=== PATIENT | female | born 1935 | race Caucasian/White ===

== ENCOUNTER 2018-01-08 15:30 | Outpatient (RCR) | payer MEDICARE, SELFPAY ==
[2017-12-15 09:39] VITALS: BP 158/75; PULSE 80; RESP 16; TEMP 35.3; BMI 27.3
--- NOTE | 2017-12-15 10:48 | PCM.WC.HP ---
(1) Pressure ulcer of right buttock, stage 2 Status: Chronic Current Visit: Yes Code(s): L89.312 - Pressure ulcer of right buttock, stage 2 (2) Debility Status: Chronic Current Visit: Yes Code(s): R53.81 - Other malaise (3) Dementia Status: Chronic Current Visit: Yes Code(s): F03.90 - Unspecified dementia without behavioral disturbance (4) Immobility Status: Chronic Current Visit: Yes Code(s): Z74.09 - Other reduced mobility (5) Diabetes Status: Chronic Current Visit: Yes Qualifiers: Diabetes mellitus type: type 2 Code(s): E11.9 - Type 2 diabetes mellitus without complications (6) Hypertension Status: Chronic Current Visit: No Code(s): I10 - Essential (primary) hypertension (7) Hyperlipidemia Status: Chronic Current Visit: No Code(s): E78.5 - Hyperlipidemia, unspecified (8) Hypothyroidism Status: Chronic Current Visit: No Code(s): E03.9 - Hypothyroidism, unspecified (9) Incontinence of urine Status: Chronic Current Visit: No Code(s): R32 - Unspecified urinary incontinence (10) Lumbar and sacral arthritis Status: Chronic Current Visit: No Code(s): M48.9 - Spondylopathy, unspecified (11) Overweight (BMI 25.0-29.9) Status: Chronic Current Visit: No Code(s): E66.3 - Overweight History of Present Illness Date of Service: 12/15/17 Chief Complaint: Stage II pressure ulceration of the right upper buttock History of Wound: This is an 82-year-old female who is debilitated, and suffers from dementia. She lives with her son and wtnjqciw-[id number]. Her nlbnjgoc-pt-ezt is a nurse. Patient presents with a stage II pressure ulceration of the right upper buttock, which is said to have been present for approximately 1 month. Additionally, there is a fullness in the left upper buttock, with overlying skin changes, though no breach in skin integrity. There are also signs of pressure phenomenon on each of the lower buttocks. The patient sleeps on a regular mattress. She has a gel cushion for her wheelchair. She is largely immobile, though walks short distances with the aid of a walker. The patient's appetite is said to be good. The patient has recently completed courses of Keflex and Cefdinir orally. Past Medical History Past Medical History: Chronic Problems Pressure ulcer of right buttock, stage 2 (Chronic) Debility (Chronic) Dementia (Chronic) Immobility (Chronic) Diabetes (Chronic) Hypertension (Chronic) Hyperlipidemia (Chronic) Hypothyroidism (Chronic) Incontinence of urine (Chronic) Lumbar and sacral arthritis (Chronic) Overweight (BMI 25.0-29.9) (Chronic) Past Medical History: The patient's history is negative for myocardial infarction, congestive heart failure, cerebrovascular accident, renal disease, pulmonary disease, and cancer. She suffers from dementia, diabetes mellitus, hypertension, hyperlipidemia, hypothyroidism, lumbar fractures, and urinary incontinence. Surgical History: - - Patient has a history of cholecystectomy in the past. She is a Ab0. Allergies/Adverse Reactions: Allergies No Known Allergies Allergy (Verified 12/15/17 10:02) Home Medications: Ambulatory Orders Medication Instructions Recorded Acetaminophen [Tylenol Extra 1,000 mg PO BID 12/15/17 Strength] Benazepril HCl [Lotensin] 20 mg PO DAILY 12/15/17 Calcium Carbonate/Vitamin D3 2 each PO DAILY 12/15/17 [Calcium 600 with Vit D Chew Tb] Cholecalciferol (Vitamin D3) 1,000 unit PO 12/15/17 [Vitamin D3] Donepezil HCl [Aricept] 10 mg PO DAILY 12/15/17 Fluticasone 0.05% [Flonase Nasal 2 spray NASAL DAILY 12/15/17 [place]] Gabapentin [Neurontin] 600 mg PO TIDCM 12/15/17 Insulin Glargine [Lantus (BKC)] 15 units SC DAILY 12/15/17 Insulin Lispro [Humalog KwikPen] See Protocol SQ 12/15/17 Levothyroxine [Synthroid] 100 mcg PO DAILY 12/15/17 Lovastatin [Mevacor] 40 mg PO DAILY 12/15/17 Melatonin 5 mg PO DAILY 12/15/17 Metformin HCl 500 mg PO BID 12/15/17 Sennosides/Docusate Sodium [Senna 1 each PO BID 12/15/17 Plus Tablet] - Family History Paternal - - Patient's father at a young age from a myocardial infarction. The patient's mother in her 70s from a cerebrovascular accident. Social History: Patient denies use of alcohol and tobacco products. She is . She lives with her son and nowjnffz-uc-sjv, who are her caregivers. Lives: With Family Smoking Status: Never smoker Tobacco Use: Non-smoker Alcohol: None Drugs: None Review of Systems Constitutional: Denies: Chills, Fever, Weight Change Eyes: Denies: Pain, Vision Change HEENT: Denies: Difficulty Hearing, Difficulty Swallowing, Sinus Congestion Cardiovascular: Denies: Chest Pain, Palpitations Respiratory: Denies: Cough, Shortness of Breath Gastrointestinal: Denies: Diarrhea, Nausea, Vomiting Genitourinary: Denies: Dysuria, Hematuria Endocrine: Denies: Heat/ Cold Intolerance, Polydipsia, Polyuria Hematologic/ Lymphatic: Denies: Easy Bruising, Easy Bleeding - Physical Exam Vital Signs Temp Pulse Resp BP 95.5 F L 80 16 158/75 H 12/15/17 09:39 12/15/17 09:39 12/15/17 09:39 12/15/17 09:39 General: Alert, Oriented x3, Cooperative, No apparent distress, Well developed, Well nourished, - - The patient is relatively immobile HEENT: Atraumatic, PERRLA, EOMI, Normocephalic Oral: Moist Mucosa Neck: Supple, No JVD, Negative Carotid Bruits, Negative Hepatojugular Reflux, No Nodes, No Nuchal Rigidity, Trachea Midline Lungs: Clear to auscultation, Normal air movement, No rhonchi, No wheeze, No rales Cardiovascular: Regular rate, Regular Rhythm, Normal S1, Normal S2, No murmurs Abdomen: Soft, Non Tender, Non-Distended Extremities: No clubbing, No cyanosis, No edema Skin: - - A superficial stage II pressure ulceration is noted on the right upper buttock. Dimensions are documented elsewhere. There is no sign of infection or cellulitis. There is a moderate amount of bioburden and evidence of some nonviable tissue. There is a fullness on the left upper buttock, though the skin remains intact, with some mild erythematous discoloration that does not suggest cellulitis. There are some early skin changes on the lower buttocks that are suggestive of pressure phenomenon, though no hanane breech of skin integrity. Wound Measurements and Assessment WC - Nurse 1 - General Ulcer Measurement Start: 12/15/17 09:39 Freq: Status: Active Protocol: Activity Type Activity Date Activity User E-Sign Co-Sign Detail Recorded Client Recorded Date Recorded By Document 12/15/17 09:39 [facility] [id number] 12/15/17 09:55 [facility] 12/15/17 09:39 Wound Center Nurse 1 [Ulcer Assessment] #2- RT UPPER BUTTOCK -Combined with other wound No -Current Size (cm) - Length 2 -Current Size (cm) - Width 2.5 -Total Square Cm 5.0 -Date of Last Picture (Recall this 12/15/17 field) -Photo Taken Yes -Epithelialization None Present -Tunneling No -Undermining/Tunneling No -Circular Undermining No -Granulation Amt None Present (0 %) -Slough/Fibrin Yes -Necrosis Amt Large (67-100%) -Necrotic Tissue Type Adherent Slough -Structure Exposed N/A -Texture ([place]-wound Skin Appearance) Scarring -Moisture ([place]-wound Skin Appearance Dry/Scaly ) -Color ([place]-wound Skin Appearance) Erythema -Temperature ([place]-wound Skin No Abnormality Appearance) (Pt Warm) -Tenderness on Palpation ([place]-wound No Skin Appearance) -Ulcer Cleansing Wound Cleanser -Foul Odor after Cleansing No -Anesthetic Used 4% Lidocaine Solution #1- LT UPPER BUTTOCK -Combined with other wound No -Current Size (cm) - Length 2.5 -Current Size (cm) - Width 3.5 -Current Size (cm) - Depth 0.1 -Total Square Cm 8.75 -Date of Last Picture (Recall this 12/15/17 field) -Photo Taken Yes -Epithelialization None Present -Tunneling No -Undermining/Tunneling No -Circular Undermining No -Exudate Amt None Present (0 %) -Wound Margin Distinct, Outline Attached -Structure Exposed N/A -Color ([place]-wound Skin Appearance) Ecchymosis Erythema -Temperature ([place]-wound Skin No Abnormality Appearance) (Pt Warm) -Tenderness on Palpation ([place]-wound Yes Skin Appearance) -Ulcer Cleansing Wound Cleanser -Foul Odor after Cleansing No -Anesthetic Used 4% Lidocaine Solution WC - Nurse 2 - General Ulcer CM Notes Start: 12/15/17 09:39 Freq: Status: Active Protocol: Activity Type Activity Date Activity User E-Sign Co-Sign Detail Recorded Client Recorded Date Recorded By Document 12/15/17 10:35 [id number] 12/15/17 10:45 12/15/17 10:35 Wound Center Nurse 2 [Procedure/Treatment] #2- RT UPPER BUTTOCK -Time 10:36 -Correct Patient Yes -Correct Side, Site, Position Yes -Correct Procedure Yes -Procedure Performed Yes -Type of Procedure Debridement -Clinical Debridement Subcutaneous -Post Debridement Size (cm) - Length 2.0 -Post Debridement Size (cm) - Width 1.7 -Post Debridement Size (cm) - Depth 0.1 -Total Square Cm 3.40 -Wound/Ulcer Outcome Not Healed -Ulcer Cleansing Rinsed/ Irrigated with Saline -Foul Odor after Cleansing No -Bioengineered Tissue No -Topical Lidocaine (%) 4 -Lidocaine (ml) 10 -Bleeding Controlled with NA -Treatment Response Procedure Tolerated Well #1- LT UPPER BUTTOCK -Time 10:37 -Correct Patient Yes -Correct Side, Site, Position Yes -Correct Procedure Yes -Procedure Performed No -Wound/Ulcer Outcome Not Healed -Ulcer Cleansing Rinsed/ Irrigated with Saline -Foul Odor after Cleansing No -Bioengineered Tissue No -Bleeding Controlled with NA [See Physician Procedure note for Specifics] Musculoskeletal: Muscle Wasting Neurological: Cranial nerves II-XII grossly intact, Neuro grossly intact Psych/Mental Status: Normal Affect, Appropriate, Alert and oriented to time, place, person, mood and affect Debridement Note Post-Debridement Measurements/Treatment WC - Nurse 2 - General Ulcer CM Notes Start: 12/15/17 09:39 Freq: Status: Active Protocol: Activity Type Activity Date Activity User E-Sign Co-Sign Detail Recorded Client Recorded Date Recorded By Document 12/15/17 10:35 [id number] 12/15/17 10:45 12/15/17 10:35 Wound Center Nurse 2 #2- RT UPPER BUTTOCK -Time 10:36 -Correct Patient Yes -Correct Side, Site, Position Yes -Correct Procedure Yes -Procedure Performed Yes -Type of Procedure Debridement -Clinical Debridement Subcutaneous -Post Debridement Size (cm) - Length 2.0 -Post Debridement Size (cm) - Width 1.7 -Post Debridement Size (cm) - Depth 0.1 -Total Square Cm 3.40 -Wound/Ulcer Outcome Not Healed -Ulcer Cleansing Rinsed/ Irrigated with Saline -Foul Odor after Cleansing No -Bioengineered Tissue No -Topical Lidocaine (%) 4 -Lidocaine (ml) 10 -Bleeding Controlled with NA -Treatment Response Procedure Tolerated Well #1- LT UPPER BUTTOCK -Time 10:37 -Correct Patient Yes -Correct Side, Site, Position Yes -Correct Procedure Yes -Procedure Performed No -Wound/Ulcer Outcome Not Healed -Ulcer Cleansing Rinsed/ Irrigated with Saline -Foul Odor after Cleansing No -Bioengineered Tissue No -Bleeding Controlled with NA Laterality: Right - Upper buttock Type of Debridement: Excisional debridement Anesthesia Used: 4% Lidocaine Solution Depth: Down to and including healthy tissue, in the subcutaneous layer Percentage of wound debrided: 100 Instrument Used: 5mm curette Severity: Fat Layer Exposed Amount of bleeding with debridement: Mild Bleeding Controlled with: Compression and gauze Patient tolerated procedure well Assessment/Plan Active Problems Pressure ulcer of right buttock, stage 2 (Chronic) Debility (Chronic) Dementia (Chronic) Immobility (Chronic) Diabetes (Chronic) Assessment: This is an 82-year-old female who presents with evidence of pressure phenomenon in the buttocks. There is a stage II pressure ulceration on the right upper buttock. There is evidence of fullness in the left upper buttock, though no breach of skin integrity. There are also some early skin changes in the lower buttocks, also suggesting pressure phenomenon. Plan: Offloading measures are to be implemented. These have been discussed with the patient and with her [id number]-sty, who is at the bedside. The whbyvcib-fz-zqm is a nurse, and appears to understand the recommendations. We are to request a low air loss overlay to the patient's mattress. Patient is to continue using her gel cushion on her wheelchair. Frequent repositioning has been recommended. We are to use collagenase Santyl topically on the open ulceration on the right upper buttock. This will be applied daily. We are to use OptiFoam or equivalent on both areas on the upper buttocks to minimize pressure and shear forces. We are to obtain routine laboratory studies, including a CBC, conference of metabolic profile, hemoglobin A1c, and serum prealbumin. His laboratory results will give information regarding nutritional status, diabetes control, etc. Good nutrition has been recommended, with the use of nutritional supplements such as Glucerna. Optimization of the patient's glycemic status has been also recommended. The patient is not a smoker. Influenza vaccine was not administered today. Patient stands 5 feet 9 inches tall. She weighs 185 pounds. Her BMI is 27.3, which places her in an overweight category. Weight loss has been recommended, and collaboration with her primary care physician in this regard has been advised, though adequate nutritional intake has also been recommended.
--- NOTE | 2017-12-15 10:59 | HP.PCM_ITS ---
(1) Pressure ulcer of right buttock, stage 2 Status: Chronic Current Visit: Yes Code(s): L89.312 - Pressure ulcer of right buttock, stage 2 (2) Debility Status: Chronic Current Visit: Yes Code(s): R53.81 - Other malaise (3) Dementia Status: Chronic Current Visit: Yes Code(s): F03.90 - Unspecified dementia without behavioral disturbance (4) Immobility Status: Chronic Current Visit: Yes Code(s): Z74.09 - Other reduced mobility (5) Diabetes Status: Chronic Current Visit: Yes Qualifiers: Diabetes mellitus type: type 2 Code(s): E11.9 - Type 2 diabetes mellitus without complications (6) Hypertension Status: Chronic Current Visit: No Code(s): I10 - Essential (primary) hypertension (7) Hyperlipidemia Status: Chronic Current Visit: No Code(s): E78.5 - Hyperlipidemia, unspecified (8) Hypothyroidism Status: Chronic Current Visit: No Code(s): E03.9 - Hypothyroidism, unspecified (9) Incontinence of urine Status: Chronic Current Visit: No Code(s): R32 - Unspecified urinary incontinence (10) Lumbar and sacral arthritis Status: Chronic Current Visit: No Code(s): M48.9 - Spondylopathy, unspecified (11) Overweight (BMI 25.0-29.9) Status: Chronic Current Visit: No Code(s): E66.3 - Overweight History of Present Illness Date of Service: 12/15/17 Chief Complaint: Stage II pressure ulceration of the right upper buttock History of Wound: This is an 82-year-old female who is debilitated, and suffers from dementia. She lives with her son and [id number]. Her daughter-in- law is a nurse. Patient presents with a stage II pressure ulceration of the right upper buttock, which is said to have been present for approximately 1 month. Additionally, there is a fullness in the left upper buttock, with overlying skin changes, though no breach in skin integrity. There are also signs of pressure phenomenon on each of the lower buttocks. The patient sleeps on a regular mattress. She has a gel cushion for her wheelchair. She is largely immobile, though walks short distances with the aid of a walker. The patient's appetite is said to be good. The patient has recently completed courses of Keflex and Cefdinir orally. Past Medical History Past Medical History: Chronic Problems Pressure ulcer of right buttock, stage 2 (Chronic) Debility (Chronic) Dementia (Chronic) Immobility (Chronic) Diabetes (Chronic) Hypertension (Chronic) Hyperlipidemia (Chronic) Hypothyroidism (Chronic) Incontinence of urine (Chronic) Lumbar and sacral arthritis (Chronic) Overweight (BMI 25.0-29.9) (Chronic) Past Medical History: The patient's history is negative for myocardial infarction, congestive heart failure, cerebrovascular accident, renal disease, pulmonary disease, and cancer. She suffers from dementia, diabetes mellitus, hypertension, hyperlipidemia, hypothyroidism, lumbar fractures, and urinary incontinence. Surgical History: - - Patient has a history of cholecystectomy in the past. She is a Ab0. Allergies/Adverse Reactions: Allergies No Known Allergies Allergy (Verified 12/15/17 10:02) Home Medications: Ambulatory Orders Medication Instructions Recorded Acetaminophen [Tylenol Extra 1,000 mg PO BID 12/15/17 Strength] Benazepril HCl [Lotensin] 20 mg PO DAILY 12/15/17 Calcium Carbonate/Vitamin D3 2 each PO DAILY 12/15/17 [Calcium 600 with Vit D Chew Tb] Cholecalciferol (Vitamin D3) 1,000 unit PO 12/15/17 [Vitamin D3] Donepezil HCl [Aricept] 10 mg PO DAILY 12/15/17 Fluticasone 0.05% [Flonase Nasal 2 spray NASAL DAILY 12/15/17 [place]] Gabapentin [Neurontin] 600 mg PO TIDCM 12/15/17 Insulin Glargine [Lantus (BKC)] 15 units SC DAILY 12/15/17 Insulin Lispro [Humalog KwikPen] See Protocol SQ 12/15/17 Levothyroxine [Synthroid] 100 mcg PO DAILY 12/15/17 Lovastatin [Mevacor] 40 mg PO DAILY 12/15/17 Melatonin 5 mg PO DAILY 12/15/17 Metformin HCl 500 mg PO BID 12/15/17 Sennosides/Docusate Sodium [Senna 1 each PO BID 12/15/17 Plus Tablet] - Family History Paternal - - Patient's father at a young age from a myocardial infarction. The patient's mother in her 70s from a cerebrovascular accident. Social History: Patient denies use of alcohol and tobacco products. She is . She lives with her son and [id number], who are her caregivers. Lives: With Family Smoking Status: Never smoker Tobacco Use: Non-smoker Alcohol: None Drugs: None Review of Systems Constitutional: Denies: Chills, Fever, Weight Change Eyes: Denies: Pain, Vision Change HEENT: Denies: Difficulty Hearing, Difficulty Swallowing, Sinus Congestion Cardiovascular: Denies: Chest Pain, Palpitations Respiratory: Denies: Cough, Shortness of Breath Gastrointestinal: Denies: Diarrhea, Nausea, Vomiting Genitourinary: Denies: Dysuria, Hematuria Endocrine: Denies: Heat/ Cold Intolerance, Polydipsia, Polyuria Hematologic/ Lymphatic: Denies: Easy Bruising, Easy Bleeding - Physical Exam Vital Signs Temp Pulse Resp BP 95.5 F L 80 16 158/75 H 12/15/17 09:39 12/15/17 09:39 12/15/17 09:39 12/15/17 09:39 General: Alert, Oriented x3, Cooperative, No apparent distress, Well developed, Well nourished, - - The patient is relatively immobile HEENT: Atraumatic, PERRLA, EOMI, Normocephalic Oral: Moist Mucosa Neck: Supple, No JVD, Negative Carotid Bruits, Negative Hepatojugular Reflux, No Nodes, No Nuchal Rigidity, Trachea Midline Lungs: Clear to auscultation, Normal air movement, No rhonchi, No wheeze, No rales Cardiovascular: Regular rate, Regular Rhythm, Normal S1, Normal S2, No murmurs Abdomen: Soft, Non Tender, Non-Distended Extremities: No clubbing, No cyanosis, No edema Skin: - - A superficial stage II pressure ulceration is noted on the right upper buttock. Dimensions are documented elsewhere. There is no sign of infection or cellulitis. There is a moderate amount of bioburden and evidence of some nonviable tissue. There is a fullness on the left upper buttock, though the skin remains intact, with some mild erythematous discoloration that does not suggest cellulitis. There are some early skin changes on the lower buttocks that are suggestive of pressure phenomenon, though no hanane breech of skin integrity. Wound Measurements and Assessment WC - Nurse 1 - General Ulcer Measurement Start: 12/15/17 09:39 Freq: Status: Active Protocol: Activity Type Activity Date Activity User E-Sign Co-Sign Detail Recorded Client Recorded Date Recorded By Document 12/15/17 09:39 [facility] [id number] 12/15/17 09:55 [facility] 12/15/17 09:39 Wound Center Nurse 1 [Ulcer Assessment] #2- RT UPPER BUTTOCK -Combined with other wound No -Current Size (cm) - Length 2 -Current Size (cm) - Width 2.5 -Total Square Cm 5.0 -Date of Last Picture (Recall this 12/15/17 field) -Photo Taken Yes -Epithelialization None Present -Tunneling No -Undermining/Tunneling No -Circular Undermining No -Granulation Amt None Present (0 %) -Slough/Fibrin Yes -Necrosis Amt Large (67-100%) -Necrotic Tissue Type Adherent Slough -Structure Exposed N/A -Texture ([place]-wound Skin Appearance) Scarring -Moisture ([place]-wound Skin Appearance Dry/Scaly ) -Color ([place]-wound Skin Appearance) Erythema -Temperature ([place]-wound Skin No Abnormality Appearance) (Pt Warm) -Tenderness on Palpation ([place]-wound No Skin Appearance) -Ulcer Cleansing Wound Cleanser -Foul Odor after Cleansing No -Anesthetic Used 4% Lidocaine Solution #1- LT UPPER BUTTOCK -Combined with other wound No -Current Size (cm) - Length 2.5 -Current Size (cm) - Width 3.5 -Current Size (cm) - Depth 0.1 -Total Square Cm 8.75 -Date of Last Picture (Recall this 12/15/17 field) -Photo Taken Yes -Epithelialization None Present -Tunneling No -Undermining/Tunneling No -Circular Undermining No -Exudate Amt None Present (0 %) -Wound Margin Distinct, Outline Attached -Structure Exposed N/A -Color ([place]-wound Skin Appearance) Ecchymosis Erythema -Temperature ([place]-wound Skin No Abnormality Appearance) (Pt Warm) -Tenderness on Palpation ([place]-wound Yes Skin Appearance) -Ulcer Cleansing Wound Cleanser -Foul Odor after Cleansing No -Anesthetic Used 4% Lidocaine Solution WC - Nurse 2 - General Ulcer CM Notes Start: 12/15/17 09:39 Freq: Status: Active Protocol: Activity Type Activity Date Activity User E-Sign Co-Sign Detail Recorded Client Recorded Date Recorded By Document 12/15/17 10:35 [id number] 12/15/17 10:45 12/15/17 10:35 Wound Center Nurse 2 [Procedure/Treatment] #2- RT UPPER BUTTOCK -Time 10:36 -Correct Patient Yes -Correct Side, Site, Position Yes -Correct Procedure Yes -Procedure Performed Yes -Type of Procedure Debridement -Clinical Debridement Subcutaneous -Post Debridement Size (cm) - Length 2.0 -Post Debridement Size (cm) - Width 1.7 -Post Debridement Size (cm) - Depth 0.1 -Total Square Cm 3.40 -Wound/Ulcer Outcome Not Healed -Ulcer Cleansing Rinsed/ Irrigated with Saline -Foul Odor after Cleansing No -Bioengineered Tissue No -Topical Lidocaine (%) 4 -Lidocaine (ml) 10 -Bleeding Controlled with NA -Treatment Response Procedure Tolerated Well #1- LT UPPER BUTTOCK -Time 10:37 -Correct Patient Yes -Correct Side, Site, Position Yes -Correct Procedure Yes -Procedure Performed No -Wound/Ulcer Outcome Not Healed -Ulcer Cleansing Rinsed/ Irrigated with Saline -Foul Odor after Cleansing No -Bioengineered Tissue No -Bleeding Controlled with NA [See Physician Procedure note for Specifics] Musculoskeletal: Muscle Wasting Neurological: Cranial nerves II-XII grossly intact, Neuro grossly intact Psych/Mental Status: Normal Affect, Appropriate, Alert and oriented to time, place, person, mood and affect Debridement Note Post-Debridement Measurements/Treatment WC - Nurse 2 - General Ulcer CM Notes Start: 12/15/17 09:39 Freq: Status: Active Protocol: Activity Type Activity Date Activity User E-Sign Co-Sign Detail Recorded Client Recorded Date Recorded By Document 12/15/17 10:35 [id number] 12/15/17 10:45 12/15/17 10:35 Wound Center Nurse 2 #2- RT UPPER BUTTOCK -Time 10:36 -Correct Patient Yes -Correct Side, Site, Position Yes -Correct Procedure Yes -Procedure Performed Yes -Type of Procedure Debridement -Clinical Debridement Subcutaneous -Post Debridement Size (cm) - Length 2.0 -Post Debridement Size (cm) - Width 1.7 -Post Debridement Size (cm) - Depth 0.1 -Total Square Cm 3.40 -Wound/Ulcer Outcome Not Healed -Ulcer Cleansing Rinsed/ Irrigated with Saline -Foul Odor after Cleansing No -Bioengineered Tissue No -Topical Lidocaine (%) 4 -Lidocaine (ml) 10 -Bleeding Controlled with NA -Treatment Response Procedure Tolerated Well #1- LT UPPER BUTTOCK -Time 10:37 -Correct Patient Yes -Correct Side, Site, Position Yes -Correct Procedure Yes -Procedure Performed No -Wound/Ulcer Outcome Not Healed -Ulcer Cleansing Rinsed/ Irrigated with Saline -Foul Odor after Cleansing No -Bioengineered Tissue No -Bleeding Controlled with NA Laterality: Right - Upper buttock Type of Debridement: Excisional debridement Anesthesia Used: 4% Lidocaine Solution Depth: Down to and including healthy tissue, in the subcutaneous layer Percentage of wound debrided: 100 Instrument Used: 5mm curette Severity: Fat Layer Exposed Amount of bleeding with debridement: Mild Bleeding Controlled with: Compression and gauze Patient tolerated procedure well Assessment/Plan Active Problems Pressure ulcer of right buttock, stage 2 (Chronic) Debility (Chronic) Dementia (Chronic) Immobility (Chronic) Diabetes (Chronic) Assessment: This is an 82-year-old female who presents with evidence of pressure phenomenon in the buttocks. There is a stage II pressure ulceration on the right upper buttock. There is evidence of fullness in the left upper buttock, though no breach of skin integrity. There are also some early skin changes in the lower buttocks, also suggesting pressure phenomenon. Plan: Offloading measures are to be implemented. These have been discussed with the patient and with her [id number], who is at the bedside. The [id number] is a nurse, and appears to understand the recommendations. We are to request a low air loss overlay to the patient's mattress. Patient is to continue using her gel cushion on her wheelchair. Frequent repositioning has been recommended. We are to use collagenase Santyl topically on the open ulceration on the right upper buttock. This will be applied daily. We are to use OptiFoam or equivalent on both areas on the upper buttocks to minimize pressure and shear forces. We are to obtain routine laboratory studies, including a CBC, conference of metabolic profile, hemoglobin A1c, and serum prealbumin. His laboratory results will give information regarding nutritional status, diabetes control, etc. Good nutrition has been recommended, with the use of nutritional supplements such as Glucerna. Optimization of the patient's glycemic status has been also recommended. The patient is not a smoker. Influenza vaccine was not administered today. Patient stands 5 feet 9 inches tall. She weighs 185 pounds. Her BMI is 27.3, which places her in an overweight category. Weight loss has been recommended, and collaboration with her primary care physician in this regard has been advised, though adequate nutritional intake has also been recommended.
[2017-12-15 13:32] LABS: Hematocrit 40.4 % (37-47); Hemoglobin 13.3 g/dl (12.0-15.0); Mean Corp Hgb Conc 32.9 g/gl (32-36); Mean Corpuscular Hgb 31.8 pg (27.0-32.0); Mean Corpuscular Volume 96.7 fL (81-99); Platelet Count 195 K/mm3 (150-450); RBC Distribution Width CV 13.7 % (11.6-14.6); RBC Distribution Width SD 47.1 fl (35.1-43.9); Red Blood Count 4.18 M/mm3 (4.2-5.4); Scan Indicated on CBC? Y/N NO; White Blood Count 12.2 K/mm3 (4.4-11.0)
[2017-12-15 13:52] LABS: Hemoglobin A1c 6.5 % (4.2-6.3)
[2017-12-15 14:05] LABS: ALB/GLOB Ratio 0.8 RATIO (0.9-2.4); AST(SGOT) 23 U/L (15-37); Alanine Aminotransfer ALT/SGPT 18 U/L (13-56); Albumin, Serum 3.5 g/dL (3.2-5.0); Alkaline Phosphatase 59 U/L (45-117); Anion Gap 7 (5-15); BUN 21 mg/dL (7-18); BUN/Creat Ratio 22.5 RATIO (10-20); Calcium,Total 9.4 mg/dL (8.5-10.1); Chloride 104 mmol/L (98-107); Creatinine, Serum 0.93 mg/dL (0.55-1.02); EST Glomerular Filtration Rate 61 mL/min (>60); Est Glom Filt Rate - Afr Amer 74 mL/min (>60); Estimated Creatinine Clearance 50.42 ml/min; Globulin 4.3 g/dL (2.2-4.2); Glucose 133 mg/dL (74-106); Potassium 4.4 mmol/L (3.5-5.1); Protein, Total 7.8 g/dL (6.4-8.2); Sodium Level 146 mmol/L (136-145)
[2017-12-25 15:25] VITALS: BP 147/64; PULSE 76; RESP 16; TEMP 36.4; BMI 27.3
--- NOTE | 2017-12-25 18:27 | PCM.WC.HP ---
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: unspecified detention insulin use status Diabetes mellitus complication status: with unspecified complications Qualified Code(s): E11.8 - Type 2 diabetes mellitus with unspecified complications Code(s): E11.9 - Type 2 diabetes mellitus without complications (4) Immobility Status: Chronic Current Visit: Yes Code(s): Z74.09 - Other reduced mobility (5) Pressure ulcer of right buttock, stage 2 Status: Chronic Current Visit: Yes Code(s): L89.312 - Pressure ulcer of right buttock, stage 2 History of Present Illness Date of Service: 12/25/17 Chief Complaint: Stage II pressure ulceration of the right upper buttock History of Wound: This is an 82-year-old female who is debilitated, and suffers from dementia. She lives with her son and xljankcm-ag-dah. Her lemxaxjl-oi-aqq is a nurse. Patient presents with a stage II pressure ulceration of the right upper buttock, which is said to have been present for approximately 1 month. Additionally, there is a fullness in the left upper buttock, with overlying skin changes, though no breach in skin integrity. There are also signs of pressure phenomenon on each of the lower buttocks. The patient sleeps on a regular mattress. She has a gel cushion for her wheelchair. She is largely immobile, though walks short distances with the aid of a walker. The patient's appetite is said to be good. The patient has recently completed courses of Keflex and Cefdinir orally. She was seen by Dr. English last week and Santyl was prescribed for treatment. Her daughter in law has been doing this daily without complication. They have been working on offloading but bedtime is difficult. A low air loss mattress was ordered but they have not heard back from insurance at this time. Past Medical History Past Medical History: Chronic Problems Pressure ulcer of right buttock, stage 2 (Chronic) Debility (Chronic) Dementia (Chronic) Immobility (Chronic) Diabetes (Chronic) Hypertension (Chronic) Hyperlipidemia (Chronic) Hypothyroidism (Chronic) Incontinence of urine (Chronic) Lumbar and sacral arthritis (Chronic) Overweight (BMI 25.0-29.9) (Chronic) Surgical History: - - Patient has a history of cholecystectomy in the past. She is a Ab0. Allergies/Adverse Reactions: Allergies No Known Allergies Allergy (Verified 12/15/17 10:02) Home Medications: Ambulatory Orders Medication Instructions Recorded Acetaminophen [Tylenol Extra 1,000 mg PO BID 12/15/17 Strength] Benazepril HCl [Lotensin] 20 mg PO DAILY 12/15/17 Calcium Carbonate/Vitamin D3 2 each PO DAILY 12/15/17 [Calcium 600 with Vit D Chew Tb] Cholecalciferol (Vitamin D3) 1,000 unit PO 12/15/17 [Vitamin D3] Donepezil HCl [Aricept] 10 mg PO DAILY 12/15/17 Fluticasone 0.05% [Flonase Nasal 2 spray NASAL DAILY 12/15/17 [place]] Gabapentin [Neurontin] 600 mg PO TIDCM 12/15/17 Insulin Glargine [Lantus (BKC)] 15 units SC DAILY 12/15/17 Insulin Lispro [Humalog KwikPen] See Protocol SQ 12/15/17 Levothyroxine [Synthroid] 100 mcg PO DAILY 12/15/17 Lovastatin [Mevacor] 40 mg PO DAILY 12/15/17 Melatonin 5 mg PO DAILY 12/15/17 Metformin HCl 500 mg PO BID 12/15/17 Sennosides/Docusate Sodium [Senna 1 each PO BID 12/15/17 Plus Tablet] - Family History Paternal - - Patient's father at a young age from a myocardial infarction. The patient's mother in her 70s from a cerebrovascular accident. Lives: With Family Smoking Status: Never smoker Tobacco Use: Non-smoker Alcohol: None Drugs: None Review of Systems Constitutional: Denies: Chills, Fever, Weight Change Eyes: Denies: Pain, Vision Change HEENT: Reports: Difficulty Hearing. Denies: Difficulty Swallowing, Sinus Congestion Cardiovascular: Denies: Chest Pain, Palpitations Respiratory: Denies: Cough, Shortness of Breath Gastrointestinal: Denies: Diarrhea, Nausea, Vomiting Genitourinary: Denies: Dysuria, Hematuria Musculoskeletal: Reports: Joint Pain Skin: Reports: Wounds Neurological: Reports: Confusion Hematologic/ Lymphatic: Denies: Easy Bruising, Easy Bleeding - Physical Exam Vital Signs Temp Pulse Resp BP 97.6 F L 76 16 147/64 H 12/25/17 15:25 12/25/17 15:25 12/25/17 15:25 12/25/17 15:25 General: Alert, Cooperative, No apparent distress HEENT: Atraumatic, Normocephalic Oral: Moist Mucosa Neck: Supple, No JVD Lungs: Clear to auscultation Cardiovascular: Regular rate, Regular Rhythm Abdomen: Soft, Non Tender, Obese Extremities: Edema Skin: Ulcer/ Wound Wound Measurements and Assessment WC - Nurse 1 - General Ulcer Measurement Start: 12/15/17 09:39 Freq: Status: Active Protocol: Activity Type Activity Date Activity User E-Sign Co-Sign Detail Recorded Client Recorded Date Recorded By Document 12/25/17 15:25 [id number] 12/25/17 15:33 12/25/17 15:25 Wound Center Nurse 1 [Ulcer Assessment] #2- RT UPPER BUTTOCK -Combined with other wound No -Current Size (cm) - Length 0.8 -Current Size (cm) - Width 2.0 -Current Size (cm) - Depth 0.1 -Total Square Cm 1.60 -Photo Taken No -Epithelialization None Present -Tunneling No -Exudate Amt Small (1-33%) -Exudate Type Serosanguineous -Wound Margin Distinct, Outline Attached -Granulation Amt Medium (34-66%) -Granulation Quality [place] Red -Slough/Fibrin Yes -Necrosis Amt None Present (0 %) -Necrotic Tissue Type Adherent Slough -Structure Exposed None/Limited to Skin Breakdown -Texture ([place]-wound Skin Appearance) Assessed Scarring -Moisture ([place]-wound Skin Appearance No Abnormality ) Assessed -Color ([place]-wound Skin Appearance) Assessed Erythema -Temperature ([place]-wound Skin No Abnormality Appearance) (Pt Warm) -Ulcer Cleansing Rinsed/ Irrigated with Saline -Foul Odor after Cleansing No -Anesthetic Used 4% Lidocaine Solution #1- LT UPPER BUTTOCK -Combined with other wound No -Current Size (cm) - Length 2.3 -Current Size (cm) - Width 2.7 -Current Size (cm) - Depth 0 -Total Square Cm 6.21 -Photo Taken No -Texture ([place]-wound Skin Appearance) Assessed -Moisture ([place]-wound Skin Appearance Assessed ) -Color ([place]-wound Skin Appearance) Assessed Ecchymosis -Temperature ([place]-wound Skin No Abnormality Appearance) (Pt Warm) -Tenderness on Palpation ([place]-wound No Skin Appearance) -Ulcer Cleansing Rinsed/ Irrigated with Saline -Foul Odor after Cleansing No [Edema Assessment] -Lower Limb Edema Present NA - Nurse 2 - General Ulcer CM Notes Start: 12/15/17 09:39 Freq: Status: Active Protocol: Activity Type Activity Date Activity User E-Sign Co-Sign Detail Recorded Client Recorded Date Recorded By Document 12/25/17 16:14 [id number] 12/25/17 16:23 12/25/17 16:14 Wound Center Nurse 2 [Procedure/Treatment] #2- RT UPPER BUTTOCK -Time 16:14 -Correct Patient Yes -Correct Side, Site, Position Yes -Correct Procedure Yes -Procedure Performed Yes -Type of Procedure Debridement -Clinical Debridement Subcutaneous -Post Debridement Size (cm) - Length 1.3 -Post Debridement Size (cm) - Width 1.7 -Post Debridement Size (cm) - Depth 0.2 -Total Square Cm 2.21 -Wound/Ulcer Outcome Not Healed -Ulcer Cleansing Rinsed/ Irrigated with Saline -Foul Odor after Cleansing No -Bioengineered Tissue No -Topical Lidocaine (%) 4 -Bleeding Controlled with Pressure -Treatment Response Procedure Tolerated Well [See Physician Procedure note for Specifics] Pain Scale: 0-10 Numeric [Pain] -Is Patient Pain Free? Yes Psych/Mental Status: Normal Affect, Appropriate Debridement Note Post-Debridement Measurements/Treatment - Nurse 2 - General Ulcer CM Notes Start: 12/15/17 09:39 Freq: Status: Active Protocol: Activity Type Activity Date Activity User E-Sign Co-Sign Detail Recorded Client Recorded Date Recorded By Document 12/15/17 10:35 [id number] 12/15/17 10:45 Document 12/25/17 16:14 [id number] 12/25/17 16:23 TM 12/15/17 12/25/17 10:35 16:14 Wound Center Nurse 2 #2- RT UPPER BUTTOCK -Time 10:36 16:14 -Correct Patient Yes Yes -Correct Side, Site, Position Yes Yes -Correct Procedure Yes Yes -Procedure Performed Yes Yes -Type of Procedure Debridement Debridement -Clinical Debridement Subcutaneous Subcutaneous -Post Debridement Size (cm) - Length 2.0 1.3 -Post Debridement Size (cm) - Width 1.7 1.7 -Post Debridement Size (cm) - Depth 0.1 0.2 -Total Square Cm 3.40 2.21 -Wound/Ulcer Outcome Not Healed Not Healed -Ulcer Cleansing Rinsed/ Rinsed/ Irrigated with Irrigated with Saline Saline -Foul Odor after Cleansing No No -Bioengineered Tissue No No -Topical Lidocaine (%) 4 4 -Lidocaine (ml) 10 -Bleeding Controlled with NA Pressure -Treatment Response Procedure Procedure Tolerated Well Tolerated Well #1- LT UPPER BUTTOCK -Time 10:37 -Correct Patient Yes -Correct Side, Site, Position Yes -Correct Procedure Yes -Procedure Performed No -Wound/Ulcer Outcome Not Healed -Ulcer Cleansing Rinsed/ Irrigated with Saline -Foul Odor after Cleansing No -Bioengineered Tissue No -Bleeding Controlled with NA Pain Scale: 0-10 Numeric Is Patient Pain Free? Yes Wound debrided: right upper buttock Laterality: Right Wound Grade/Stage: Stage II Type of Debridement: Excisional debridement Anesthesia Used: 4% Lidocaine Solution Depth: Down to and including healthy tissue, in the subcutaneous layer Percentage of wound debrided: 100 Instrument Used: 5mm curette Tissue Removed: yellow slough, devitalized tissue Severity: Fat Layer Exposed Amount of bleeding with debridement: Mild Bleeding Controlled with: Compression and gauze Patient tolerated procedure well Assessment/Plan Active Problems Pressure ulcer of right buttock, stage 2 (Chronic) Debility (Chronic) Dementia (Chronic) Immobility (Chronic) Diabetes (Chronic) Assessment: This is an 82-year-old female who presents with evidence of pressure phenomenon in the buttocks. There is a stage II pressure ulceration on the right upper buttock. There is evidence of fullness in the left upper buttock, though no breach of skin integrity. There are also some early skin changes in the lower buttocks, also suggesting pressure phenomenon. Plan: Offloading measures encouraged. These have been discussed with the patient and with her lvxsbtzr-[id number]-iny, who is at the bedside. The arvqtvqu-ba-eix is a nurse, and appears to understand the recommendations. Awaiting response regarding a low air loss overlay to the patient's mattress. Patient is to continue using her gel cushion on her wheelchair. Frequent repositioning has been recommended. We are to use collagenase Santyl topically on the open ulceration on the right upper buttock. This will be applied daily. We are to use OptiFoam or equivalent on both areas on the upper buttocks to minimize pressure and shear forces. Labs reviewed and WNL. Good nutrition has been recommended, with the use of nutritional supplements such as Glucerna. Optimization of the patient's glycemic status has been also recommended. F/U in 1 week.
--- NOTE | 2017-12-25 18:35 | HP.PCM_ITS ---
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 home insulin use status Diabetes mellitus complication status : with unspecified complications Qualified Code(s): E11.8 - Type 2 diabetes mellitus with unspecified complications Code(s): E11.9 - Type 2 diabetes mellitus without complications (4) Immobility Status: Chronic Current Visit: Yes Code(s): Z74.09 - Other reduced mobility (5) Pressure ulcer of right buttock, stage 2 Status: Chronic Current Visit: Yes Code(s): L89.312 - Pressure ulcer of right buttock, stage 2 History of Present Illness Date of Service: 12/25/17 Chief Complaint: Stage II pressure ulceration of the right upper buttock History of Wound: This is an 82-year-old female who is debilitated, and suffers from dementia. She lives with her son and [id number]. Her daughter-in- law is a nurse. Patient presents with a stage II pressure ulceration of the right upper buttock, which is said to have been present for approximately 1 month. Additionally, there is a fullness in the left upper buttock, with overlying skin changes, though no breach in skin integrity. There are also signs of pressure phenomenon on each of the lower buttocks. The patient sleeps on a regular mattress. She has a gel cushion for her wheelchair. She is largely immobile, though walks short distances with the aid of a walker. The patient's appetite is said to be good. The patient has recently completed courses of Keflex and Cefdinir orally. She was seen by Dr. English last week and Santyl was prescribed for treatment. Her daughter in law has been doing this daily without complication. They have been working on offloading but bedtime is difficult. A low air loss mattress was ordered but they have not heard back from insurance at this time. Past Medical History Past Medical History: Chronic Problems Pressure ulcer of right buttock, stage 2 (Chronic) Debility (Chronic) Dementia (Chronic) Immobility (Chronic) Diabetes (Chronic) Hypertension (Chronic) Hyperlipidemia (Chronic) Hypothyroidism (Chronic) Incontinence of urine (Chronic) Lumbar and sacral arthritis (Chronic) Overweight (BMI 25.0-29.9) (Chronic) Surgical History: - - Patient has a history of cholecystectomy in the past. She is a Ab0. Allergies/Adverse Reactions: Allergies No Known Allergies Allergy (Verified 12/15/17 10:02) Home Medications: Ambulatory Orders Medication Instructions Recorded Acetaminophen [Tylenol Extra 1,000 mg PO BID 12/15/17 Strength] Benazepril HCl [Lotensin] 20 mg PO DAILY 12/15/17 Calcium Carbonate/Vitamin D3 2 each PO DAILY 12/15/17 [Calcium 600 with Vit D Chew Tb] Cholecalciferol (Vitamin D3) 1,000 unit PO 12/15/17 [Vitamin D3] Donepezil HCl [Aricept] 10 mg PO DAILY 12/15/17 Fluticasone 0.05% [Flonase Nasal 2 spray NASAL DAILY 12/15/17 [place]] Gabapentin [Neurontin] 600 mg PO TIDCM 12/15/17 Insulin Glargine [Lantus (BKC)] 15 units SC DAILY 12/15/17 Insulin Lispro [Humalog KwikPen] See Protocol SQ 12/15/17 Levothyroxine [Synthroid] 100 mcg PO DAILY 12/15/17 Lovastatin [Mevacor] 40 mg PO DAILY 12/15/17 Melatonin 5 mg PO DAILY 12/15/17 Metformin HCl 500 mg PO BID 12/15/17 Sennosides/Docusate Sodium [Senna 1 each PO BID 12/15/17 Plus Tablet] - Family History Paternal - - Patient's father at a young age from a myocardial infarction. The patient's mother in her 70s from a cerebrovascular accident. Lives: With Family Smoking Status: Never smoker Tobacco Use: Non-smoker Alcohol: None Drugs: None Review of Systems Constitutional: Denies: Chills, Fever, Weight Change Eyes: Denies: Pain, Vision Change HEENT: Reports: Difficulty Hearing. Denies: Difficulty Swallowing, Sinus Congestion Cardiovascular: Denies: Chest Pain, Palpitations Respiratory: Denies: Cough, Shortness of Breath Gastrointestinal: Denies: Diarrhea, Nausea, Vomiting Genitourinary: Denies: Dysuria, Hematuria Musculoskeletal: Reports: Joint Pain Skin: Reports: Wounds Neurological: Reports: Confusion Hematologic/ Lymphatic: Denies: Easy Bruising, Easy Bleeding - Physical Exam Vital Signs Temp Pulse Resp BP 97.6 F L 76 16 147/64 H 12/25/17 15:25 12/25/17 15:25 12/25/17 15:25 12/25/17 15:25 General: Alert, Cooperative, No apparent distress HEENT: Atraumatic, Normocephalic Oral: Moist Mucosa Neck: Supple, No JVD Lungs: Clear to auscultation Cardiovascular: Regular rate, Regular Rhythm Abdomen: Soft, Non Tender, Obese Extremities: Edema Skin: Ulcer/ Wound Wound Measurements and Assessment WC - Nurse 1 - General Ulcer Measurement Start: 12/15/17 09:39 Freq: Status: Active Protocol: Activity Type Activity Date Activity User E-Sign Co-Sign Detail Recorded Client Recorded Date Recorded By Document 12/25/17 15:25 [id number] 12/25/17 15:33 12/25/17 15:25 Wound Center Nurse 1 [Ulcer Assessment] #2- RT UPPER BUTTOCK -Combined with other wound No -Current Size (cm) - Length 0.8 -Current Size (cm) - Width 2.0 -Current Size (cm) - Depth 0.1 -Total Square Cm 1.60 -Photo Taken No -Epithelialization None Present -Tunneling No -Exudate Amt Small (1-33%) -Exudate Type Serosanguineous -Wound Margin Distinct, Outline Attached -Granulation Amt Medium (34-66%) -Granulation Quality [place] Red -Slough/Fibrin Yes -Necrosis Amt None Present (0 %) -Necrotic Tissue Type Adherent Slough -Structure Exposed None/Limited to Skin Breakdown -Texture ([place]-wound Skin Appearance) Assessed Scarring -Moisture ([place]-wound Skin Appearance No Abnormality ) Assessed -Color ([place]-wound Skin Appearance) Assessed Erythema -Temperature ([place]-wound Skin No Abnormality Appearance) (Pt Warm) -Ulcer Cleansing Rinsed/ Irrigated with Saline -Foul Odor after Cleansing No -Anesthetic Used 4% Lidocaine Solution #1- LT UPPER BUTTOCK -Combined with other wound No -Current Size (cm) - Length 2.3 -Current Size (cm) - Width 2.7 -Current Size (cm) - Depth 0 -Total Square Cm 6.21 -Photo Taken No -Texture ([place]-wound Skin Appearance) Assessed -Moisture ([place]-wound Skin Appearance Assessed ) -Color ([place]-wound Skin Appearance) Assessed Ecchymosis -Temperature ([place]-wound Skin No Abnormality Appearance) (Pt Warm) -Tenderness on Palpation ([place]-wound No Skin Appearance) -Ulcer Cleansing Rinsed/ Irrigated with Saline -Foul Odor after Cleansing No [Edema Assessment] -Lower Limb Edema Present NA - Nurse 2 - General Ulcer CM Notes Start: 12/15/17 09:39 Freq: Status: Active Protocol: Activity Type Activity Date Activity User E-Sign Co-Sign Detail Recorded Client Recorded Date Recorded By Document 12/25/17 16:14 [id number] 12/25/17 16:23 12/25/17 16:14 Wound Center Nurse 2 [Procedure/Treatment] #2- RT UPPER BUTTOCK -Time 16:14 -Correct Patient Yes -Correct Side, Site, Position Yes -Correct Procedure Yes -Procedure Performed Yes -Type of Procedure Debridement -Clinical Debridement Subcutaneous -Post Debridement Size (cm) - Length 1.3 -Post Debridement Size (cm) - Width 1.7 -Post Debridement Size (cm) - Depth 0.2 -Total Square Cm 2.21 -Wound/Ulcer Outcome Not Healed -Ulcer Cleansing Rinsed/ Irrigated with Saline -Foul Odor after Cleansing No -Bioengineered Tissue No -Topical Lidocaine (%) 4 -Bleeding Controlled with Pressure -Treatment Response Procedure Tolerated Well [See Physician Procedure note for Specifics] Pain Scale: 0-10 Numeric [Pain] -Is Patient Pain Free? Yes Psych/Mental Status: Normal Affect, Appropriate Debridement Note Post-Debridement Measurements/Treatment - Nurse 2 - General Ulcer CM Notes Start: 12/15/17 09:39 Freq: Status: Active Protocol: Activity Type Activity Date Activity User E-Sign Co-Sign Detail Recorded Client Recorded Date Recorded By Document 12/15/17 10:35 [id number] 12/15/17 10:45 Document 12/25/17 16:14 [id number] 12/25/17 16:23 TM 12/15/17 12/25/17 10:35 16:14 Wound Center Nurse 2 #2- RT UPPER BUTTOCK -Time 10:36 16:14 -Correct Patient Yes Yes -Correct Side, Site, Position Yes Yes -Correct Procedure Yes Yes -Procedure Performed Yes Yes -Type of Procedure Debridement Debridement -Clinical Debridement Subcutaneous Subcutaneous -Post Debridement Size (cm) - Length 2.0 1.3 -Post Debridement Size (cm) - Width 1.7 1.7 -Post Debridement Size (cm) - Depth 0.1 0.2 -Total Square Cm 3.40 2.21 -Wound/Ulcer Outcome Not Healed Not Healed -Ulcer Cleansing Rinsed/ Rinsed/ Irrigated with Irrigated with Saline Saline -Foul Odor after Cleansing No No -Bioengineered Tissue No No -Topical Lidocaine (%) 4 4 -Lidocaine (ml) 10 -Bleeding Controlled with NA Pressure -Treatment Response Procedure Procedure Tolerated Well Tolerated Well #1- LT UPPER BUTTOCK -Time 10:37 -Correct Patient Yes -Correct Side, Site, Position Yes -Correct Procedure Yes -Procedure Performed No -Wound/Ulcer Outcome Not Healed -Ulcer Cleansing Rinsed/ Irrigated with Saline -Foul Odor after Cleansing No -Bioengineered Tissue No -Bleeding Controlled with NA Pain Scale: 0-10 Numeric Is Patient Pain Free? Yes Wound debrided: right upper buttock Laterality: Right Wound Grade/Stage: Stage II Type of Debridement: Excisional debridement Anesthesia Used: 4% Lidocaine Solution Depth: Down to and including healthy tissue, in the subcutaneous layer Percentage of wound debrided: 100 Instrument Used: 5mm curette Tissue Removed: yellow slough, devitalized tissue Severity: Fat Layer Exposed Amount of bleeding with debridement: Mild Bleeding Controlled with: Compression and gauze Patient tolerated procedure well Assessment/Plan Active Problems Pressure ulcer of right buttock, stage 2 (Chronic) Debility (Chronic) Dementia (Chronic) Immobility (Chronic) Diabetes (Chronic) Assessment: This is an 82-year-old female who presents with evidence of pressure phenomenon in the buttocks. There is a stage II pressure ulceration on the right upper buttock. There is evidence of fullness in the left upper buttock, though no breach of skin integrity. There are also some early skin changes in the lower buttocks, also suggesting pressure phenomenon. Plan: Offloading measures encouraged. These have been discussed with the patient and with her mrhsindz-dz-doh, who is at the bedside. The daughter-in- law is a nurse, and appears to understand the recommendations. Awaiting response regarding a low air loss overlay to the patient's mattress. Patient is to continue using her gel cushion on her wheelchair. Frequent repositioning has been recommended. We are to use collagenase Santyl topically on the open ulceration on the right upper buttock. This will be applied daily. We are to use OptiFoam or equivalent on both areas on the upper buttocks to minimize pressure and shear forces. Labs reviewed and WNL. Good nutrition has been recommended, with the use of nutritional supplements such as Glucerna. Optimization of the patient's glycemic status has been also recommended. F/U in 1 week.
[2018-01-08 15:47] VITALS: BP 146/61; PULSE 81; RESP 16; TEMP 36.3; BMI 27.3
--- NOTE | 2018-01-08 19:04 | PCM.WC.PN ---
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 custodial insulin use status Diabetes mellitus complication status: with unspecified complications Qualified Code(s): E11.8 - Type 2 diabetes mellitus with unspecified complications Code(s): E11.9 - Type 2 diabetes mellitus without complications (4) Immobility Status: Chronic Current Visit: Yes Code(s): Z74.09 - Other reduced mobility (5) Pressure ulcer of right buttock, stage 2 Status: Chronic Current Visit: Yes Code(s): L89.312 - Pressure ulcer of right buttock, stage 2 Type of Wound Date of Service: 01/08/18 Chief Complaint: Stage II pressure ulceration of the right upper buttock History of Wound: This is an 82-year-old female who is debilitated, and suffers from dementia. She lives with her son and zrkpnclx-ns-nsr. Her rjpyiikf-ct-nxb is a nurse. Patient presents with a stage II pressure ulceration of the right upper buttock, which is said to have been present for approximately 1 month. Additionally, there is a fullness in the left upper buttock, with overlying skin changes, though no breach in skin integrity. There are also signs of pressure phenomenon on each of the lower buttocks. The patient sleeps on a regular mattress. She has a gel cushion for her wheelchair. She is largely immobile, though walks short distances with the aid of a walker. The patient's appetite is said to be good. The patient has recently completed courses of Keflex and Cefdinir orally. She was seen by Dr. English last week and Santyl was prescribed for treatment. Her daughter in law has been doing this daily without complication. They have been working on offloading but bedtime is difficult. A low air loss mattress was ordered but they have not heard back from insurance at this time. Progress of Wound: Ricardo is here today with her daughter in law and has been tolerating application with Santyl with softening of the fibrous exudative slough present in her wound. Still have not heard back about low air loss mattress. - Physical Exam Vital Signs Temp Pulse Resp BP 97.3 F L 81 16 146/61 H 01/08/18 15:47 01/08/18 15:47 01/08/18 15:47 01/08/18 15:47 General: Alert, Oriented x3, Cooperative, No apparent distress HEENT: Atraumatic, Normocephalic Oral: Moist Mucosa Abdomen: Soft, Non Tender, Obese Skin: Ulcer/ Wound Wound Measurements and Assessment WC - Nurse 1 - General Ulcer Measurement Start: 12/15/17 09:39 Freq: Status: Active Protocol: Activity Type Activity Date Activity User E-Sign Co-Sign Detail Recorded Client Recorded Date Recorded By Document 01/08/18 15:47 [id number] 01/08/18 15:49 CS 01/08/18 15:47 Wound Center Nurse 1 [Ulcer Assessment] #2- RT UPPER BUTTOCK -Combined with other wound No -Current Size (cm) - Length 1 -Current Size (cm) - Width 1.6 -Current Size (cm) - Depth 0.1 -Total Square Cm 1.6 -Photo Taken No -Epithelialization None Present -Tunneling No -Undermining/Tunneling No -Circular Undermining No -Exudate Amt Medium (34-66%) -Exudate Type Serosanguineous -Wound Margin Distinct, Outline Attached -Granulation Amt Medium (34-66%) -Granulation Quality [place] Red -Slough/Fibrin Yes -Necrosis Amt Medium (34-66%) -Necrotic Tissue Type Adherent Slough -Structure Exposed None/Limited to Skin Breakdown -Moisture ([place]-wound Skin Appearance Assessed ) Maceration -Color ([place]-wound Skin Appearance) No Abnormality Assessed -Temperature ([place]-wound Skin No Abnormality Appearance) (Pt Warm) -Tenderness on Palpation ([place]-wound No Skin Appearance) -Ulcer Cleansing Rinsed/ Irrigated with Saline -Foul Odor after Cleansing No -Anesthetic Used 4% Lidocaine Solution [Edema Assessment] -Lower Limb Edema Present NA WC - Nurse 2 - General Ulcer CM Notes Start: 12/15/17 09:39 Freq: Status: Active Protocol: Activity Type Activity Date Activity User E-Sign Co-Sign Detail Recorded Client Recorded Date Recorded By Document 01/08/18 16:47 [id number] 01/08/18 16:51 01/08/18 16:47 Wound Center Nurse 2 [Procedure/Treatment] #2- RT UPPER BUTTOCK -Time 16:47 -Correct Patient Yes -Correct Side, Site, Position Yes -Correct Procedure Yes -Procedure Performed Yes -Type of Procedure Debridement -Clinical Debridement Subcutaneous -Post Debridement Size (cm) - Length 1.1 -Post Debridement Size (cm) - Width 1.8 -Post Debridement Size (cm) - Depth 0.3 -Total Square Cm 1.98 -Wound/Ulcer Outcome Not Healed -Ulcer Cleansing Rinsed/ Irrigated with Saline -Foul Odor after Cleansing No -Bioengineered Tissue No -Topical Lidocaine (%) 4 -Bleeding Controlled with Pressure -Treatment Response Procedure Tolerated Well [See Physician Procedure note for Specifics] Pain Scale: 0-10 Numeric [Pain] -Is Patient Pain Free? Yes Psych/Mental Status: Normal Affect, Appropriate Debridement Note Post-Debridement Measurements/Treatment WC - Nurse 2 - General Ulcer CM Notes Start: 12/15/17 09:39 Freq: Status: Active Protocol: Activity Type Activity Date Activity User E-Sign Co-Sign Detail Recorded Client Recorded Date Recorded By Document 12/15/17 10:35 [id number] 12/15/17 10:45 Document 12/25/17 16:14 [id number] 12/25/17 16:23 Document 01/08/18 16:47 [id number] 01/08/18 16:51 12/15/17 12/25/17 01/08/18 10:35 16:14 16:47 Wound Center Nurse 2 #2- RT UPPER BUTTOCK -Time 10:36 16:14 16:47 -Correct Patient Yes Yes Yes -Correct Side, Site, Position Yes Yes Yes -Correct Procedure Yes Yes Yes -Procedure Performed Yes Yes Yes -Type of Procedure Debridement Debridement Debridement -Clinical Debridement Subcutaneous Subcutaneous Subcutaneous -Post Debridement Size (cm) - Length 2.0 1.3 1.1 -Post Debridement Size (cm) - Width 1.7 1.7 1.8 -Post Debridement Size (cm) - Depth 0.1 0.2 0.3 -Total Square Cm 3.40 2.21 1.98 -Wound/Ulcer Outcome Not Healed Not Healed Not Healed -Ulcer Cleansing Rinsed/ Rinsed/ Rinsed/ Irrigated with Irrigated with Irrigated with Saline Saline Saline -Foul Odor after Cleansing No No No -Bioengineered Tissue No No No -Topical Lidocaine (%) 4 4 4 -Lidocaine (ml) 10 -Bleeding Controlled with NA Pressure Pressure -Treatment Response Procedure Procedure Procedure Tolerated Well Tolerated Well Tolerated Well #1- LT UPPER BUTTOCK -Time 10:37 -Correct Patient Yes -Correct Side, Site, Position Yes -Correct Procedure Yes -Procedure Performed No -Wound/Ulcer Outcome Not Healed -Ulcer Cleansing Rinsed/ Irrigated with Saline -Foul Odor after Cleansing No -Bioengineered Tissue No -Bleeding Controlled with NA Pain Scale: 0-10 Numeric Is Patient Pain Free? Yes Yes Wound debrided: right upper buttock stage III Laterality: Right Wound Grade/Stage: stage III Type of Debridement: Excisional debridement Anesthesia Used: 4% Lidocaine Solution Depth: Down to and including healthy tissue, in the subcutaneous layer Percentage of wound debrided: 100 Instrument Used: 5mm curette, #15 blade, Forceps Tissue Removed: yellow slough, devitalized tissue Severity: Fat Layer Exposed Amount of bleeding with debridement: Mild Bleeding Controlled with: Compression and gauze Patient tolerated procedure well Assessment/Plan Active Problems Pressure ulcer of right buttock, stage 2 (Chronic) Debility (Chronic) Dementia (Chronic) Immobility (Chronic) Diabetes (Chronic) Assessment: This is an 82-year-old female who presents with evidence of pressure phenomenon in the buttocks. There is a stage II pressure ulceration on the right upper buttock. There is evidence of fullness in the left upper buttock, though no breach of skin integrity. There are also some early skin changes in the lower buttocks, also suggesting pressure phenomenon. Plan: Offloading measures encouraged. These have been discussed with the patient and with her xxdsnemy-zz-wam, who is at the bedside. The jeytzuzi-kd-dwc is a nurse, and appears to understand the recommendations. Awaiting response regarding a low air loss overlay to the patient's mattress. Patient is to continue using her gel cushion on her wheelchair. Frequent repositioning has been recommended. We are to use collagenase Santyl topically on the open ulceration on the right upper buttock. This will be applied daily. We are to use OptiFoam or equivalent on both areas on the upper buttocks to minimize pressure and shear forces. Labs reviewed and WNL. Good nutrition has been recommended, with the use of nutritional supplements such as Glucerna. Optimization of the patient's glycemic status has been also recommended. F/U in 1 week.
--- NOTE | 2018-01-08 19:07 | PN.PCM_ITS ---
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 penitentiary insulin use status Diabetes mellitus complication status : with unspecified complications Qualified Code(s): E11.8 - Type 2 diabetes mellitus with unspecified complications Code(s): E11.9 - Type 2 diabetes mellitus without complications (4) Immobility Status: Chronic Current Visit: Yes Code(s): Z74.09 - Other reduced mobility (5) Pressure ulcer of right buttock, stage 2 Status: Chronic Current Visit: Yes Code(s): L89.312 - Pressure ulcer of right buttock, stage 2 Type of Wound Date of Service: 01/08/18 Chief Complaint: Stage II pressure ulceration of the right upper buttock History of Wound: This is an 82-year-old female who is debilitated, and suffers from dementia. She lives with her son and yeekimtu-[id number]-otr. Her daughter-in- law is a nurse. Patient presents with a stage II pressure ulceration of the right upper buttock, which is said to have been present for approximately 1 month. Additionally, there is a fullness in the left upper buttock, with overlying skin changes, though no breach in skin integrity. There are also signs of pressure phenomenon on each of the lower buttocks. The patient sleeps on a regular mattress. She has a gel cushion for her wheelchair. She is largely immobile, though walks short distances with the aid of a walker. The patient's appetite is said to be good. The patient has recently completed courses of Keflex and Cefdinir orally. She was seen by Dr. English last week and Santyl was prescribed for treatment. Her daughter in law has been doing this daily without complication. They have been working on offloading but bedtime is difficult. A low air loss mattress was ordered but they have not heard back from insurance at this time. Progress of Wound: Ricardo is here today with her daughter in law and has been tolerating application with Santyl with softening of the fibrous exudative slough present in her wound. Still have not heard back about low air loss mattress. - Physical Exam Vital Signs Temp Pulse Resp BP 97.3 F L 81 16 146/61 H 01/08/18 15:47 01/08/18 15:47 01/08/18 15:47 01/08/18 15:47 General: Alert, Oriented x3, Cooperative, No apparent distress HEENT: Atraumatic, Normocephalic Oral: Moist Mucosa Abdomen: Soft, Non Tender, Obese Skin: Ulcer/ Wound Wound Measurements and Assessment WC - Nurse 1 - General Ulcer Measurement Start: 12/15/17 09:39 Freq: Status: Active Protocol: Activity Type Activity Date Activity User E-Sign Co-Sign Detail Recorded Client Recorded Date Recorded By Document 01/08/18 15:47 [id number] 01/08/18 15:49 CS 01/08/18 15:47 Wound Center Nurse 1 [Ulcer Assessment] #2- RT UPPER BUTTOCK -Combined with other wound No -Current Size (cm) - Length 1 -Current Size (cm) - Width 1.6 -Current Size (cm) - Depth 0.1 -Total Square Cm 1.6 -Photo Taken No -Epithelialization None Present -Tunneling No -Undermining/Tunneling No -Circular Undermining No -Exudate Amt Medium (34-66%) -Exudate Type Serosanguineous -Wound Margin Distinct, Outline Attached -Granulation Amt Medium (34-66%) -Granulation Quality [place] Red -Slough/Fibrin Yes -Necrosis Amt Medium (34-66%) -Necrotic Tissue Type Adherent Slough -Structure Exposed None/Limited to Skin Breakdown -Moisture ([place]-wound Skin Appearance Assessed ) Maceration -Color ([place]-wound Skin Appearance) No Abnormality Assessed -Temperature ([place]-wound Skin No Abnormality Appearance) (Pt Warm) -Tenderness on Palpation ([place]-wound No Skin Appearance) -Ulcer Cleansing Rinsed/ Irrigated with Saline -Foul Odor after Cleansing No -Anesthetic Used 4% Lidocaine Solution [Edema Assessment] -Lower Limb Edema Present NA WC - Nurse 2 - General Ulcer CM Notes Start: 12/15/17 09:39 Freq: Status: Active Protocol: Activity Type Activity Date Activity User E-Sign Co-Sign Detail Recorded Client Recorded Date Recorded By Document 01/08/18 16:47 [id number] 01/08/18 16:51 01/08/18 16:47 Wound Center Nurse 2 [Procedure/Treatment] #2- RT UPPER BUTTOCK -Time 16:47 -Correct Patient Yes -Correct Side, Site, Position Yes -Correct Procedure Yes -Procedure Performed Yes -Type of Procedure Debridement -Clinical Debridement Subcutaneous -Post Debridement Size (cm) - Length 1.1 -Post Debridement Size (cm) - Width 1.8 -Post Debridement Size (cm) - Depth 0.3 -Total Square Cm 1.98 -Wound/Ulcer Outcome Not Healed -Ulcer Cleansing Rinsed/ Irrigated with Saline -Foul Odor after Cleansing No -Bioengineered Tissue No -Topical Lidocaine (%) 4 -Bleeding Controlled with Pressure -Treatment Response Procedure Tolerated Well [See Physician Procedure note for Specifics] Pain Scale: 0-10 Numeric [Pain] -Is Patient Pain Free? Yes Psych/Mental Status: Normal Affect, Appropriate Debridement Note Post-Debridement Measurements/Treatment WC - Nurse 2 - General Ulcer CM Notes Start: 12/15/17 09:39 Freq: Status: Active Protocol: Activity Type Activity Date Activity User E-Sign Co-Sign Detail Recorded Client Recorded Date Recorded By Document 12/15/17 10:35 [id number] 12/15/17 10:45 Document 12/25/17 16:14 [id number] 12/25/17 16:23 Document 01/08/18 16:47 [id number] 01/08/18 16:51 12/15/17 12/25/17 01/08/18 10:35 16:14 16:47 Wound Center Nurse 2 #2- RT UPPER BUTTOCK -Time 10:36 16:14 16:47 -Correct Patient Yes Yes Yes -Correct Side, Site, Position Yes Yes Yes -Correct Procedure Yes Yes Yes -Procedure Performed Yes Yes Yes -Type of Procedure Debridement Debridement Debridement -Clinical Debridement Subcutaneous Subcutaneous Subcutaneous -Post Debridement Size (cm) - Length 2.0 1.3 1.1 -Post Debridement Size (cm) - Width 1.7 1.7 1.8 -Post Debridement Size (cm) - Depth 0.1 0.2 0.3 -Total Square Cm 3.40 2.21 1.98 -Wound/Ulcer Outcome Not Healed Not Healed Not Healed -Ulcer Cleansing Rinsed/ Rinsed/ Rinsed/ Irrigated with Irrigated with Irrigated with Saline Saline Saline -Foul Odor after Cleansing No No No -Bioengineered Tissue No No No -Topical Lidocaine (%) 4 4 4 -Lidocaine (ml) 10 -Bleeding Controlled with NA Pressure Pressure -Treatment Response Procedure Procedure Procedure Tolerated Well Tolerated Well Tolerated Well #1- LT UPPER BUTTOCK -Time 10:37 -Correct Patient Yes -Correct Side, Site, Position Yes -Correct Procedure Yes -Procedure Performed No -Wound/Ulcer Outcome Not Healed -Ulcer Cleansing Rinsed/ Irrigated with Saline -Foul Odor after Cleansing No -Bioengineered Tissue No -Bleeding Controlled with NA Pain Scale: 0-10 Numeric Is Patient Pain Free? Yes Yes Wound debrided: right upper buttock stage III Laterality: Right Wound Grade/Stage: stage III Type of Debridement: Excisional debridement Anesthesia Used: 4% Lidocaine Solution Depth: Down to and including healthy tissue, in the subcutaneous layer Percentage of wound debrided: 100 Instrument Used: 5mm curette, #15 blade, Forceps Tissue Removed: yellow slough, devitalized tissue Severity: Fat Layer Exposed Amount of bleeding with debridement: Mild Bleeding Controlled with: Compression and gauze Patient tolerated procedure well Assessment/Plan Active Problems Pressure ulcer of right buttock, stage 2 (Chronic) Debility (Chronic) Dementia (Chronic) Immobility (Chronic) Diabetes (Chronic) Assessment: This is an 82-year-old female who presents with evidence of pressure phenomenon in the buttocks. There is a stage II pressure ulceration on the right upper buttock. There is evidence of fullness in the left upper buttock, though no breach of skin integrity. There are also some early skin changes in the lower buttocks, also suggesting pressure phenomenon. Plan: Offloading measures encouraged. These have been discussed with the patient and with her [id number]-zkf, who is at the bedside. The daughter-in- law is a nurse, and appears to understand the recommendations. Awaiting response regarding a low air loss overlay to the patient's mattress. Patient is to continue using her gel cushion on her wheelchair. Frequent repositioning has been recommended. We are to use collagenase Santyl topically on the open ulceration on the right upper buttock. This will be applied daily. We are to use OptiFoam or equivalent on both areas on the upper buttocks to minimize pressure and shear forces. Labs reviewed and WNL. Good nutrition has been recommended, with the use of nutritional supplements such as Glucerna. Optimization of the patient's glycemic status has been also recommended. F/U in 1 week.
== END 2018-01-12 23:59 ==
LOC: WC 15:30
PROVIDERS: Surgery; Visit Provider Family Medicine
DX: E11.622 Type 2 diabetes mellitus with other skin ulcer (principal); L89.312 Pressure ulcer of right buttock, stage 2; F03.90 Unspecified dementia, unspecified severity, without behavioral disturbance, psychotic disturbance, mood disturbance, and anxiety; E78.5 Hyperlipidemia, unspecified; I10 Essential (primary) hypertension; E03.9 Hypothyroidism, unspecified; R32 Unspecified urinary incontinence; M48.8X6 Other specified spondylopathies, lumbar region; M48.8X8 Other specified spondylopathies, sacral and sacrococcygeal region; Z79.899 Other long term (current) drug therapy; Z79.4 Long term (current) use of insulin
CPT/HCPCS: 11042; 80053; 83036; 84134; 85027; 97602; 99203; G0463

== ENCOUNTER 2018-02-12 13:30 | Outpatient (RCR) | payer MEDICARE, SELFPAY ==
[2018-01-13 01:16] VITALS: BP 146/61; PULSE 81; RESP 16; TEMP 36.3
[2018-01-15 14:56] VITALS: BP 146/80; PULSE 87; TEMP 36.2
--- NOTE | 2018-01-15 18:43 | PCM.WC.PN ---
(1) Stage III pressure ulcer of sacral region Status: Chronic Current Visit: Yes Code(s): L89.153 - Pressure ulcer of sacral region, stage 3 (2) Debility Status: Chronic Current Visit: Yes Code(s): R53.81 - Other malaise (3) Dementia Status: Chronic Current Visit: Yes Qualifiers: Dementia type: unspecified type Dementia behavioral disturbance: without behavioral disturbance Qualified Code(s): F03.90 - Unspecified dementia without behavioral disturbance Code(s): F03.90 - Unspecified dementia without behavioral disturbance (4) Immobility Status: Chronic Current Visit: Yes Code(s): Z74.09 - Other reduced mobility Type of Wound Date of Service: 01/15/18 Chief Complaint: Stage II pressure ulceration of the right upper buttock History of Wound: This is an 82-year-old female who is debilitated, and suffers from dementia. She lives with her son and [id number]. Her akxpjjpx-jh-mtk is a nurse. Patient presents with a stage II pressure ulceration of the right upper buttock, which is said to have been present for approximately 1 month. Additionally, there is a fullness in the left upper buttock, with overlying skin changes, though no breach in skin integrity. There are also signs of pressure phenomenon on each of the lower buttocks. The patient sleeps on a regular mattress. She has a gel cushion for her wheelchair. She is largely immobile, though walks short distances with the aid of a walker. The patient's appetite is said to be good. The patient has recently completed courses of Keflex and Cefdinir orally. She was seen by Dr. English last week and Santyl was prescribed for treatment. Her daughter in law has been doing this daily without complication. They have been working on offloading but bedtime is difficult. A low air loss mattress was ordered but they have not heard back from insurance at this time. Progress of Wound: Ricardo is here today with her daughter in law and has been tolerating application with Santyl with softening of the fibrous exudative slough present in her wound. Low air loss mattress is not covered by her insurance due to her deductable not being met. It would cost $800. They have tried placing foam mats down on her bed to try to help relieve pressure. No increase in drainage or pain per the patient's daughter in law. - Physical Exam Vital Signs Temp Pulse Resp BP 97.1 F L 87 16 146/80 H 01/15/18 14:56 01/15/18 14:56 01/13/18 01:16 01/15/18 14:56 General: Alert, Oriented x3, Cooperative, No apparent distress HEENT: Atraumatic, Normocephalic Oral: Moist Mucosa Abdomen: Obese Skin: Ulcer/ Wound Wound Measurements and Assessment WC - Nurse 1 - General Ulcer Measurement Start: 01/15/18 13:59 Freq: Status: Active Protocol: Activity Type Activity Date Activity User E-Sign Co-Sign Detail Recorded Client Recorded Date Recorded By Document 01/15/18 14:56 MW [id number] 01/15/18 14:59 MW 01/15/18 14:56 Wound Center Nurse 1 [Ulcer Assessment] #2- RT UPPER BUTTOCK STAGE 3 PRESSURE ULCER -Combined with other wound No -Current Size (cm) - Length 1.1 -Current Size (cm) - Width 1.7 -Current Size (cm) - Depth 0.6 -Total Square Cm 1.87 -Photo Taken Yes -Epithelialization Small 1-33% -Tunneling No -Undermining/Tunneling No -Circular Undermining No -Exudate Amt Small (1-33%) -Exudate Type Serosanguineous -Wound Margin Distinct, Outline Attached -Granulation Amt Small (1-33%) -Granulation Quality Red -Slough/Fibrin Yes -Necrosis Amt Medium (34-66%) -Necrotic Tissue Type Adherent Slough -Structure Exposed None/Limited to Skin Breakdown -Texture (Catalina-wound Skin Appearance) Assessed Scarring -Moisture (Catalina-wound Skin Appearance No Abnormality ) Assessed -Color (Catalina-wound Skin Appearance) Assessed Rubor -Temperature (Catalina-wound Skin No Abnormality Appearance) (Pt Warm) -Tenderness on Palpation (Catalina-wound No Skin Appearance) -Ulcer Cleansing Rinsed/ Irrigated with Saline -Foul Odor after Cleansing No -Anesthetic Used 5% Lidocaine Gel [Edema Assessment] -Lower Limb Edema Present No WC - Nurse 2 - General Ulcer CM Notes Start: 01/15/18 13:59 Freq: Status: Active Protocol: Activity Type Activity Date Activity User E-Sign Co-Sign Detail Recorded Client Recorded Date Recorded By Document 01/15/18 16:13 TM [id number] 01/15/18 16:29 01/15/18 16:13 Wound Center Nurse 2 [Procedure/Treatment] #2- RT UPPER BUTTOCK STAGE 3 PRESSURE ULCER -Time 16:13 -Correct Patient Yes -Correct Side, Site, Position Yes -Correct Procedure Yes -Procedure Performed Yes -Type of Procedure Debridement -Clinical Debridement Subcutaneous -Post Debridement Size (cm) - Length 1.3 -Post Debridement Size (cm) - Width 1.6 -Post Debridement Size (cm) - Depth 1.4 -Total Square Cm 2.08 -Wound/Ulcer Outcome Not Healed -Ulcer Cleansing Rinsed/ Irrigated with Saline -Foul Odor after Cleansing No -Bioengineered Tissue No -Topical Lidocaine (%) 5 -Bleeding Controlled with Pressure -Other UNDERMINING @11 -1 OCLOCK -2.5 CM -Treatment Response Procedure Tolerated Well [See Physician Procedure note for Specifics] Pain Scale: 0-10 Numeric [Pain] -Is Patient Pain Free? Yes Psych/Mental Status: Normal Affect, Appropriate Debridement Note Post-Debridement Measurements/Treatment WC - Nurse 2 - General Ulcer CM Notes Start: 01/15/18 13:59 Freq: Status: Active Protocol: Activity Type Activity Date Activity User E-Sign Co-Sign Detail Recorded Client Recorded Date Recorded By Document 01/15/18 16:13 [id number] 01/15/18 16:29 01/15/18 16:13 Wound Center Nurse 2 #2- RT UPPER BUTTOCK STAGE 3 PRESSURE ULCER -Time 16:13 -Correct Patient Yes -Correct Side, Site, Position Yes -Correct Procedure Yes -Procedure Performed Yes -Type of Procedure Debridement -Clinical Debridement Subcutaneous -Post Debridement Size (cm) - Length 1.3 -Post Debridement Size (cm) - Width 1.6 -Post Debridement Size (cm) - Depth 1.4 -Total Square Cm 2.08 -Wound/Ulcer Outcome Not Healed -Ulcer Cleansing Rinsed/ Irrigated with Saline -Foul Odor after Cleansing No -Bioengineered Tissue No -Topical Lidocaine (%) 5 -Bleeding Controlled with Pressure -Other UNDERMINING @11 -1 OCLOCK -2.5 CM -Treatment Response Procedure Tolerated Well Pain Scale: 0-10 Numeric Is Patient Pain Free? Yes Wound debrided: right upper buttock stage 3 pressure ulcer Laterality: Right Wound Grade/Stage: stage 3 Type of Debridement: Excisional debridement Anesthesia Used: 4% Lidocaine Solution Depth: Down to and including healthy tissue, in the subcutaneous layer Percentage of wound debrided: 100 Instrument Used: #15 blade, Forceps Tissue Removed: yellow slough, devitalized tissue Severity: Fat Layer Exposed Amount of bleeding with debridement: Mild Bleeding Controlled with: Compression and gauze Patient tolerated procedure well Assessment/Plan Active Problems Debility (Chronic) Dementia (Chronic) Immobility (Chronic) Stage III pressure ulcer of sacral region (Chronic) Assessment: This is an 82-year-old female who presents with evidence of pressure phenomenon in the buttocks. There is a stage III pressure ulceration on the right upper buttock. There is evidence of fullness in the left upper buttock, though no breach of skin integrity. There are also some early skin changes in the lower buttocks, also suggesting pressure phenomenon. Plan: The pressure ulcer is more significant than when previously evaluated. Debridement performed today exposed a larger area of necrosis that extends below the visible external wound and there is now a cavitary wound/ulcer. We are going to pack the wound with Aquacel Ag rope. This will be changed every other day and as needed. The patient's [id number] is unable to pack the wound and is requesting assistance with Home Health Services. A referral will be made to arrange this to be able to change the dressings at least twice weekly. Continue to use OptiFoam or equivalent on both areas on the upper buttocks to minimize pressure and shear forces. Offloading measures encouraged. These have been discussed with the patient and with her [id number]-ux-dtq, who is at the bedside. The ebgulgyp-wv-yeq is a nurse, and appears to understand the recommendations. Patient is to continue using her gel cushion on her wheelchair. Frequent repositioning has been recommended. Labs reviewed and WNL. Good nutrition has been recommended, with the use of nutritional supplements such as Glucerna. Optimization of the patient's glycemic status has been also recommended. F/U in 2 weeks due to conflict with transportation next week.
--- NOTE | 2018-01-15 18:47 | PN.PCM_ITS ---
(1) Stage III pressure ulcer of sacral region Status: Chronic Current Visit: Yes Code(s): L89.153 - Pressure ulcer of sacral region, stage 3 (2) Debility Status: Chronic Current Visit: Yes Code(s): R53.81 - Other malaise (3) Dementia Status: Chronic Current Visit: Yes Qualifiers: Dementia type: unspecified type Dementia behavioral disturbance: without behavioral disturbance Qualified Code(s): F03.90 - Unspecified dementia without behavioral disturbance Code(s): F03.90 - Unspecified dementia without behavioral disturbance (4) Immobility Status: Chronic Current Visit: Yes Code(s): Z74.09 - Other reduced mobility Type of Wound Date of Service: 01/15/18 Chief Complaint: Stage II pressure ulceration of the right upper buttock History of Wound: This is an 82-year-old female who is debilitated, and suffers from dementia. She lives with her son and [id number]. Her daughter-in- law is a nurse. Patient presents with a stage II pressure ulceration of the right upper buttock, which is said to have been present for approximately 1 month. Additionally, there is a fullness in the left upper buttock, with overlying skin changes, though no breach in skin integrity. There are also signs of pressure phenomenon on each of the lower buttocks. The patient sleeps on a regular mattress. She has a gel cushion for her wheelchair. She is largely immobile, though walks short distances with the aid of a walker. The patient's appetite is said to be good. The patient has recently completed courses of Keflex and Cefdinir orally. She was seen by Dr. English last week and Santyl was prescribed for treatment. Her daughter in law has been doing this daily without complication. They have been working on offloading but bedtime is difficult. A low air loss mattress was ordered but they have not heard back from insurance at this time. Progress of Wound: Ricardo is here today with her daughter in law and has been tolerating application with Santyl with softening of the fibrous exudative slough present in her wound. Low air loss mattress is not covered by her insurance due to her deductable not being met. It would cost $800. They have tried placing foam mats down on her bed to try to help relieve pressure. No increase in drainage or pain per the patient's daughter in law. - Physical Exam Vital Signs Temp Pulse Resp BP 97.1 F L 87 16 146/80 H 01/15/18 14:56 01/15/18 14:56 01/13/18 01:16 01/15/18 14:56 General: Alert, Oriented x3, Cooperative, No apparent distress HEENT: Atraumatic, Normocephalic Oral: Moist Mucosa Abdomen: Obese Skin: Ulcer/ Wound Wound Measurements and Assessment WC - Nurse 1 - General Ulcer Measurement Start: 01/15/18 13:59 Freq: Status: Active Protocol: Activity Type Activity Date Activity User E-Sign Co-Sign Detail Recorded Client Recorded Date Recorded By Document 01/15/18 14:56 MW [id number] 01/15/18 14:59 MW 01/15/18 14:56 Wound Center Nurse 1 [Ulcer Assessment] #2- RT UPPER BUTTOCK STAGE 3 PRESSURE ULCER -Combined with other wound No -Current Size (cm) - Length 1.1 -Current Size (cm) - Width 1.7 -Current Size (cm) - Depth 0.6 -Total Square Cm 1.87 -Photo Taken Yes -Epithelialization Small 1-33% -Tunneling No -Undermining/Tunneling No -Circular Undermining No -Exudate Amt Small (1-33%) -Exudate Type Serosanguineous -Wound Margin Distinct, Outline Attached -Granulation Amt Small (1-33%) -Granulation Quality Red -Slough/Fibrin Yes -Necrosis Amt Medium (34-66%) -Necrotic Tissue Type Adherent Slough -Structure Exposed None/Limited to Skin Breakdown -Texture (Catalina-wound Skin Appearance) Assessed Scarring -Moisture ([place]-wound Skin Appearance No Abnormality ) Assessed -Color (Catal[place]-wound Skin Appearance) Assessed Rubor -Temperature (Catal[place]-wound Skin No Abnormality Appearance) (Pt Warm) -Tenderness on Palpation (Catalina-wound No Skin Appearance) -Ulcer Cleansing Rinsed/ Irrigated with Saline -Foul Odor after Cleansing No -Anesthetic Used 5% Lidocaine Gel [Edema Assessment] -Lower Limb Edema Present No WC - Nurse 2 - General Ulcer CM Notes Start: 01/15/18 13:59 Freq: Status: Active Protocol: Activity Type Activity Date Activity User E-Sign Co-Sign Detail Recorded Client Recorded Date Recorded By Document 01/15/18 16:13 TM [id number] 01/15/18 16:29 01/15/18 16:13 Wound Center Nurse 2 [Procedure/Treatment] #2- RT UPPER BUTTOCK STAGE 3 PRESSURE ULCER -Time 16:13 -Correct Patient Yes -Correct Side, Site, Position Yes -Correct Procedure Yes -Procedure Performed Yes -Type of Procedure Debridement -Clinical Debridement Subcutaneous -Post Debridement Size (cm) - Length 1.3 -Post Debridement Size (cm) - Width 1.6 -Post Debridement Size (cm) - Depth 1.4 -Total Square Cm 2.08 -Wound/Ulcer Outcome Not Healed -Ulcer Cleansing Rinsed/ Irrigated with Saline -Foul Odor after Cleansing No -Bioengineered Tissue No -Topical Lidocaine (%) 5 -Bleeding Controlled with Pressure -Other UNDERMINING @11 -1 OCLOCK -2.5 CM -Treatment Response Procedure Tolerated Well [See Physician Procedure note for Specifics] Pain Scale: 0-10 Numeric [Pain] -Is Patient Pain Free? Yes Psych/Mental Status: Normal Affect, Appropriate Debridement Note Post-Debridement Measurements/Treatment WC - Nurse 2 - General Ulcer CM Notes Start: 01/15/18 13:59 Freq: Status: Active Protocol: Activity Type Activity Date Activity User E-Sign Co-Sign Detail Recorded Client Recorded Date Recorded By Document 01/15/18 16:13 [id number] 01/15/18 16:29 01/15/18 16:13 Wound Center Nurse 2 #2- RT UPPER BUTTOCK STAGE 3 PRESSURE ULCER -Time 16:13 -Correct Patient Yes -Correct Side, Site, Position Yes -Correct Procedure Yes -Procedure Performed Yes -Type of Procedure Debridement -Clinical Debridement Subcutaneous -Post Debridement Size (cm) - Length 1.3 -Post Debridement Size (cm) - Width 1.6 -Post Debridement Size (cm) - Depth 1.4 -Total Square Cm 2.08 -Wound/Ulcer Outcome Not Healed -Ulcer Cleansing Rinsed/ Irrigated with Saline -Foul Odor after Cleansing No -Bioengineered Tissue No -Topical Lidocaine (%) 5 -Bleeding Controlled with Pressure -Other UNDERMINING @11 -1 OCLOCK -2.5 CM -Treatment Response Procedure Tolerated Well Pain Scale: 0-10 Numeric Is Patient Pain Free? Yes Wound debrided: right upper buttock stage 3 pressure ulcer Laterality: Right Wound Grade/Stage: stage 3 Type of Debridement: Excisional debridement Anesthesia Used: 4% Lidocaine Solution Depth: Down to and including healthy tissue, in the subcutaneous layer Percentage of wound debrided: 100 Instrument Used: #15 blade, Forceps Tissue Removed: yellow slough, devitalized tissue Severity: Fat Layer Exposed Amount of bleeding with debridement: Mild Bleeding Controlled with: Compression and gauze Patient tolerated procedure well Assessment/Plan Active Problems Debility (Chronic) Dementia (Chronic) Immobility (Chronic) Stage III pressure ulcer of sacral region (Chronic) Assessment: This is an 82-year-old female who presents with evidence of pressure phenomenon in the buttocks. There is a stage III pressure ulceration on the right upper buttock. There is evidence of fullness in the left upper buttock, though no breach of skin integrity. There are also some early skin changes in the lower buttocks, also suggesting pressure phenomenon. Plan: The pressure ulcer is more significant than when previously evaluated. Debridement performed today exposed a larger area of necrosis that extends below the visible external wound and there is now a cavitary wound/ulcer. We are going to pack the wound with Aquacel Ag rope. This will be changed every other day and as needed. The patient's [id number]-xf-[id number] is unable to pack the wound and is requesting assistance with Home Health Services. A referral will be made to arrange this to be able to change the dressings at least twice weekly. Continue to use OptiFoam or equivalent on both areas on the upper buttocks to minimize pressure and shear forces. Offloading measures encouraged. These have been discussed with the patient and with her [id number]-zk-rqd, who is at the bedside. The kbgbsadp-it-uek is a nurse, and appears to understand the recommendations. Patient is to continue using her gel cushion on her wheelchair. Frequent repositioning has been recommended. Labs reviewed and WNL. Good nutrition has been recommended, with the use of nutritional supplements such as Glucerna. Optimization of the patient's glycemic status has been also recommended. F/U in 2 weeks due to conflict with transportation next week.
[2018-01-22 15:51] VITALS: BP 145/68; PULSE 84; RESP 20; TEMP 36.4
--- NOTE | 2018-01-22 18:09 | PCM.WC.PN ---
(1) Stage III pressure ulcer of sacral region Status: Chronic Current Visit: Yes Code(s): L89.153 - Pressure ulcer of sacral region, stage 3 (2) Debility Status: Chronic Current Visit: Yes Code(s): R53.81 - Other malaise (3) Dementia Status: Chronic Current Visit: Yes Qualifiers: Dementia type: unspecified type Dementia behavioral disturbance: without behavioral disturbance Qualified Code(s): F03.90 - Unspecified dementia without behavioral disturbance Code(s): F03.90 - Unspecified dementia without behavioral disturbance (4) Immobility Status: Chronic Current Visit: Yes Code(s): Z74.09 - Other reduced mobility Type of Wound Date of Service: 01/22/18 Chief Complaint: Stage II pressure ulceration of the right upper buttock History of Wound: This is an 82-year-old female who is debilitated, and suffers from dementia. She lives with her son and uksofnkz-ll-vko. Her iauxawev-te-mqn is a nurse. Patient presents with a stage II pressure ulceration of the right upper buttock, which is said to have been present for approximately 1 month. Additionally, there is a fullness in the left upper buttock, with overlying skin changes, though no breach in skin integrity. There are also signs of pressure phenomenon on each of the lower buttocks. The patient sleeps on a regular mattress. She has a gel cushion for her wheelchair. She is largely immobile, though walks short distances with the aid of a walker. The patient's appetite is said to be good. The patient has recently completed courses of Keflex and Cefdinir orally. She was seen by Dr. English last week and Santyl was prescribed for treatment. Her daughter in law has been doing this daily without complication. They have been working on offloading but bedtime is difficult. A low air loss mattress was ordered but they have not heard back from insurance at this time. Progress of Wound: Ricardo is here today with her daughter in law and has been tolerating Aquacel Ag rope. Home Health has been consulted and are coming 2-3 times/week to help with dressing changes. Low air loss mattress is not covered by her insurance due to her deductable not being met. It would cost $800. They have tried placing foam mats down on her bed to try to help relieve pressure. No increase in drainage or pain per the patient's daughter in law. - Physical Exam Vital Signs Temp Pulse Resp BP 97.6 F L 84 20 H 145/68 H 01/22/18 15:51 01/22/18 15:51 01/22/18 15:51 01/22/18 15:51 General: Alert, Oriented x3, Cooperative, No apparent distress HEENT: Atraumatic, Normocephalic Oral: Moist Mucosa Abdomen: Obese Skin: Ulcer/ Wound Wound Measurements and Assessment WC - Nurse 1 - General Ulcer Measurement Start: 01/15/18 13:59 Freq: Status: Active Protocol: Activity Type Activity Date Activity User E-Sign Co-Sign Detail Recorded Client Recorded Date Recorded By Document 01/22/18 15:51 ABBEY [id number] 01/22/18 16:02 ABBEY 01/22/18 15:51 Wound Center Nurse 1 [Ulcer Assessment] #2- RT UPPER BUTTOCK STAGE 3 PRESSURE ULCER -Combined with other wound No -Current Size (cm) - Length 1.0 -Current Size (cm) - Width 1.4 -Current Size (cm) - Depth 2.4 -Total Square Cm 1.40 -Date of Last Picture (Recall this 01/15/18 field) -Photo Taken No -Epithelialization None Present -Tunneling No -Undermining/Tunneling No -Circular Undermining No -Classification - Thickness Full Thickness without Exposed Support Structure -Classification - Pressure Ulcer Stage 3 -Exudate Amt Medium (34-66%) -Exudate Type Serosanguineous -Wound Margin Distinct, Outline Attached -Granulation Amt Small (1-33%) -Granulation Quality N/A -Slough/Fibrin Yes -Necrosis Amt None Present (0 %) -Necrotic Tissue Type Adherent Slough -Structure Exposed None/Limited to Skin Breakdown -Texture (Catalina-wound Skin Appearance) No Abnormality -Moisture (Catalina-wound Skin Appearance No Abnormality ) -Color (Catalina-wound Skin Appearance) Erythema -Temperature (Catalina-wound Skin No Abnormality Appearance) (Pt Warm) -Tenderness on Palpation (Catalina-wound Yes Skin Appearance) -Ulcer Cleansing Rinsed/ Irrigated with Saline -Foul Odor after Cleansing No -Anesthetic Used 5% Lidocaine Gel WC - Nurse 2 - General Ulcer CM Notes Start: 01/15/18 13:59 Freq: Status: Active Protocol: Activity Type Activity Date Activity User E-Sign Co-Sign Detail Recorded Client Recorded Date Recorded By Document 01/22/18 16:19 TM [id number] 01/22/18 16:22 TM 01/22/18 16:19 Wound Center Nurse 2 [Procedure/Treatment] -Time 16:20 -Correct Patient Yes -Correct Side, Site, Position Yes -Correct Procedure Yes -Procedure Performed Yes -Type of Procedure Debridement -Clinical Debridement Subcutaneous -Post Debridement Size (cm) - Length 1.1 -Post Debridement Size (cm) - Width 1.8 -Post Debridement Size (cm) - Depth 2.0 -Total Square Cm 1.98 -Wound/Ulcer Outcome Not Healed -Ulcer Cleansing Rinsed/ Irrigated with Saline -Foul Odor after Cleansing No -Bioengineered Tissue No -Topical Lidocaine (%) 5 -Bleeding Controlled with Pressure -Other UNDERMINING @1- 2 (1.7CM) @ 7-1 (1.0CM) -Treatment Response Procedure Tolerated Well [See Physician Procedure note for Specifics] Pain Scale: 0-10 Numeric [Pain] -Is Patient Pain Free? Yes Psych/Mental Status: Normal Affect, Appropriate Debridement Note Post-Debridement Measurements/Treatment WC - Nurse 2 - General Ulcer CM Notes Start: 01/15/18 13:59 Freq: Status: Active Protocol: Activity Type Activity Date Activity User E-Sign Co-Sign Detail Recorded Client Recorded Date Recorded By Document 01/15/18 16:13 [id number] 01/15/18 16:29 TM Document 01/22/18 16:19 TM [id number] 01/22/18 16:22 TM 01/15/18 01/22/18 16:13 16:19 Wound Center Nurse 2 #2- RT UPPER BUTTOCK STAGE 3 PRESSURE ULCER -Time 16:13 16:20 -Correct Patient Yes Yes -Correct Side, Site, Position Yes Yes -Correct Procedure Yes Yes -Procedure Performed Yes Yes -Type of Procedure Debridement Debridement -Clinical Debridement Subcutaneous Subcutaneous -Post Debridement Size (cm) - Length 1.3 1.1 -Post Debridement Size (cm) - Width 1.6 1.8 -Post Debridement Size (cm) - Depth 1.4 2.0 -Total Square Cm 2.08 1.98 -Wound/Ulcer Outcome Not Healed Not Healed -Ulcer Cleansing Rinsed/ Rinsed/ Irrigated with Irrigated with Saline Saline -Foul Odor after Cleansing No No -Bioengineered Tissue No No -Topical Lidocaine (%) 5 5 -Bleeding Controlled with Pressure Pressure -Other UNDERMINING @11 UNDERMINING @1- -1 OCLOCK -2.5 2 (1.7CM) @ 7-1 CM (1.0CM) -Treatment Response Procedure Procedure Tolerated Well Tolerated Well Pain Scale: 0-10 Numeric Is Patient Pain Free? Yes Yes Wound debrided: right upper buttock stage III Laterality: Right Wound Grade/Stage: Stage III Type of Debridement: Excisional debridement Anesthesia Used: 4% Lidocaine Solution Depth: Down to and including healthy tissue, in the subcutaneous layer Percentage of wound debrided: 100 Instrument Used: 5mm curette Tissue Removed: yellow slough, devitalized tissue Severity: Fat Layer Exposed Amount of bleeding with debridement: Mild Bleeding Controlled with: Compression and gauze Patient tolerated procedure well Assessment/Plan Active Problems Debility (Chronic) Dementia (Chronic) Immobility (Chronic) Stage III pressure ulcer of sacral region (Chronic) Assessment: This is an 82-year-old female who presents with evidence of pressure phenomenon in the buttocks. There is a stage III pressure ulceration on the right upper buttock. There is evidence of fullness in the left upper buttock, though no breach of skin integrity. There are also some early skin changes in the lower buttocks, also suggesting pressure phenomenon. Plan: The pressure ulcer is stable compared to last week. We are going to continue to pack the wound with Aquacel Ag rope. This will be changed every other day and as needed. Home Health is providing services through [facility] [place]. Discussed considering wound vac treatment with snapvac. Daughter in law would like to hold off on this at the present time. SHe is currently on Flagyl for positive wound culture. Continue to use OptiFoam or equivalent on both areas on the upper buttocks to minimize pressure and shear forces. Offloading measures encouraged. These have been discussed with the patient and with her midbozyx-yd-uuu, who is at the bedside. The cpoocsva-aj-lub is a nurse, and appears to understand the recommendations. Patient is to continue using her gel cushion on her wheelchair. Frequent repositioning has been recommended. Labs reviewed and WNL. Good nutrition has been recommended, with the use of nutritional supplements such as Glucerna. Optimization of the patient's glycemic status has been also recommended. F/U in 1 week.
--- NOTE | 2018-01-22 18:13 | PN.PCM_ITS ---
(1) Stage III pressure ulcer of sacral region Status: Chronic Current Visit: Yes Code(s): L89.153 - Pressure ulcer of sacral region, stage 3 (2) Debility Status: Chronic Current Visit: Yes Code(s): R53.81 - Other malaise (3) Dementia Status: Chronic Current Visit: Yes Qualifiers: Dementia type: unspecified type Dementia behavioral disturbance: without behavioral disturbance Qualified Code(s): F03.90 - Unspecified dementia without behavioral disturbance Code(s): F03.90 - Unspecified dementia without behavioral disturbance (4) Immobility Status: Chronic Current Visit: Yes Code(s): Z74.09 - Other reduced mobility Type of Wound Date of Service: 01/22/18 Chief Complaint: Stage II pressure ulceration of the right upper buttock History of Wound: This is an 82-year-old female who is debilitated, and suffers from dementia. She lives with her son and [id number]. Her daughter-in- law is a nurse. Patient presents with a stage II pressure ulceration of the right upper buttock, which is said to have been present for approximately 1 month. Additionally, there is a fullness in the left upper buttock, with overlying skin changes, though no breach in skin integrity. There are also signs of pressure phenomenon on each of the lower buttocks. The patient sleeps on a regular mattress. She has a gel cushion for her wheelchair. She is largely immobile, though walks short distances with the aid of a walker. The patient's appetite is said to be good. The patient has recently completed courses of Keflex and Cefdinir orally. She was seen by Dr. English last week and Santyl was prescribed for treatment. Her daughter in law has been doing this daily without complication. They have been working on offloading but bedtime is difficult. A low air loss mattress was ordered but they have not heard back from insurance at this time. Progress of Wound: Ricardo is here today with her daughter in law and has been tolerating Aquacel Ag rope. Home Health has been consulted and are coming 2-3 times/week to help with dressing changes. Low air loss mattress is not covered by her insurance due to her deductable not being met. It would cost $800. They have tried placing foam mats down on her bed to try to help relieve pressure. No increase in drainage or pain per the patient's daughter in law. - Physical Exam Vital Signs Temp Pulse Resp BP 97.6 F L 84 20 H 145/68 H 01/22/18 15:51 01/22/18 15:51 01/22/18 15:51 01/22/18 15:51 General: Alert, Oriented x3, Cooperative, No apparent distress HEENT: Atraumatic, Normocephalic Oral: Moist Mucosa Abdomen: Obese Skin: Ulcer/ Wound Wound Measurements and Assessment WC - Nurse 1 - General Ulcer Measurement Start: 01/15/18 13:59 Freq: Status: Active Protocol: Activity Type Activity Date Activity User E-Sign Co-Sign Detail Recorded Client Recorded Date Recorded By Document 01/22/18 15:51 ABBEY [id number] 01/22/18 16:02 ABBEY 01/22/18 15:51 Wound Center Nurse 1 [Ulcer Assessment] #2- RT UPPER BUTTOCK STAGE 3 PRESSURE ULCER -Combined with other wound No -Current Size (cm) - Length 1.0 -Current Size (cm) - Width 1.4 -Current Size (cm) - Depth 2.4 -Total Square Cm 1.40 -Date of Last Picture (Recall this 01/15/18 field) -Photo Taken No -Epithelialization None Present -Tunneling No -Undermining/Tunneling No -Circular Undermining No -Classification - Thickness Full Thickness without Exposed Support Structure -Classification - Pressure Ulcer Stage 3 -Exudate Amt Medium (34-66%) -Exudate Type Serosanguineous -Wound Margin Distinct, Outline Attached -Granulation Amt Small (1-33%) -Granulation Quality N/A -Slough/Fibrin Yes -Necrosis Amt None Present (0 %) -Necrotic Tissue Type Adherent Slough -Structure Exposed None/Limited to Skin Breakdown -Texture (Catalina-wound Skin Appearance) No Abnormality -Moisture (Catalina-wound Skin Appearance No Abnormality ) -Color (Catalina-wound Skin Appearance) Erythema -Temperature (Catalina-wound Skin No Abnormality Appearance) (Pt Warm) -Tenderness on Palpation (Catalina-wound Yes Skin Appearance) -Ulcer Cleansing Rinsed/ Irrigated with Saline -Foul Odor after Cleansing No -Anesthetic Used 5% Lidocaine Gel WC - Nurse 2 - General Ulcer CM Notes Start: 01/15/18 13:59 Freq: Status: Active Protocol: Activity Type Activity Date Activity User E-Sign Co-Sign Detail Recorded Client Recorded Date Recorded By Document 01/22/18 16:19 TM [id number] 01/22/18 16:22 TM 01/22/18 16:19 Wound Center Nurse 2 [Procedure/Treatment] -Time 16:20 -Correct Patient Yes -Correct Side, Site, Position Yes -Correct Procedure Yes -Procedure Performed Yes -Type of Procedure Debridement -Clinical Debridement Subcutaneous -Post Debridement Size (cm) - Length 1.1 -Post Debridement Size (cm) - Width 1.8 -Post Debridement Size (cm) - Depth 2.0 -Total Square Cm 1.98 -Wound/Ulcer Outcome Not Healed -Ulcer Cleansing Rinsed/ Irrigated with Saline -Foul Odor after Cleansing No -Bioengineered Tissue No -Topical Lidocaine (%) 5 -Bleeding Controlled with Pressure -Other UNDERMINING @1- 2 (1.7CM) @ 7-1 (1.0CM) -Treatment Response Procedure Tolerated Well [See Physician Procedure note for Specifics] Pain Scale: 0-10 Numeric [Pain] -Is Patient Pain Free? Yes Psych/Mental Status: Normal Affect, Appropriate Debridement Note Post-Debridement Measurements/Treatment WC - Nurse 2 - General Ulcer CM Notes Start: 01/15/18 13:59 Freq: Status: Active Protocol: Activity Type Activity Date Activity User E-Sign Co-Sign Detail Recorded Client Recorded Date Recorded By Document 01/15/18 16:13 [id number] 01/15/18 16:29 TM Document 01/22/18 16:19 TM [id number] 01/22/18 16:22 TM 01/15/18 01/22/18 16:13 16:19 Wound Center Nurse 2 #2- RT UPPER BUTTOCK STAGE 3 PRESSURE ULCER -Time 16:13 16:20 -Correct Patient Yes Yes -Correct Side, Site, Position Yes Yes -Correct Procedure Yes Yes -Procedure Performed Yes Yes -Type of Procedure Debridement Debridement -Clinical Debridement Subcutaneous Subcutaneous -Post Debridement Size (cm) - Length 1.3 1.1 -Post Debridement Size (cm) - Width 1.6 1.8 -Post Debridement Size (cm) - Depth 1.4 2.0 -Total Square Cm 2.08 1.98 -Wound/Ulcer Outcome Not Healed Not Healed -Ulcer Cleansing Rinsed/ Rinsed/ Irrigated with Irrigated with Saline Saline -Foul Odor after Cleansing No No -Bioengineered Tissue No No -Topical Lidocaine (%) 5 5 -Bleeding Controlled with Pressure Pressure -Other UNDERMINING @11 UNDERMINING @1- -1 OCLOCK -2.5 2 (1.7CM) @ 7-1 CM (1.0CM) -Treatment Response Procedure Procedure Tolerated Well Tolerated Well Pain Scale: 0-10 Numeric Is Patient Pain Free? Yes Yes Wound debrided: right upper buttock stage III Laterality: Right Wound Grade/Stage: Stage III Type of Debridement: Excisional debridement Anesthesia Used: 4% Lidocaine Solution Depth: Down to and including healthy tissue, in the subcutaneous layer Percentage of wound debrided: 100 Instrument Used: 5mm curette Tissue Removed: yellow slough, devitalized tissue Severity: Fat Layer Exposed Amount of bleeding with debridement: Mild Bleeding Controlled with: Compression and gauze Patient tolerated procedure well Assessment/Plan Active Problems Debility (Chronic) Dementia (Chronic) Immobility (Chronic) Stage III pressure ulcer of sacral region (Chronic) Assessment: This is an 82-year-old female who presents with evidence of pressure phenomenon in the buttocks. There is a stage III pressure ulceration on the right upper buttock. There is evidence of fullness in the left upper buttock, though no breach of skin integrity. There are also some early skin changes in the lower buttocks, also suggesting pressure phenomenon. Plan: The pressure ulcer is stable compared to last week. We are going to continue to pack the wound with Aquacel Ag rope. This will be changed every other day and as needed. Home Health is providing services through [facility]. Discussed considering wound vac treatment with snapvac. Daughter in law would like to hold off on this at the present time. SHe is currently on Flagyl for positive wound culture. Continue to use OptiFoam or equivalent on both areas on the upper buttocks to minimize pressure and shear forces. Offloading measures encouraged. These have been discussed with the patient and with her daughter-in -law, who is at the bedside. The mfrhdkir-kh-nxk is a nurse, and appears to understand the recommendations. Patient is to continue using her gel cushion on her wheelchair. Frequent repositioning has been recommended. Labs reviewed and WNL. Good nutrition has been recommended, with the use of nutritional supplements such as Glucerna. Optimization of the patient's glycemic status has been also recommended. F/U in 1 week.
[2018-01-29 13:55] VITALS: BP 163/85; PULSE 95; RESP 16; TEMP 36.4
--- NOTE | 2018-01-29 14:21 | PCM.WC.PN ---
(1) Stage III pressure ulcer of sacral region Status: Chronic Current Visit: Yes Code(s): L89.153 - Pressure ulcer of sacral region, stage 3 (2) Debility Status: Chronic Current Visit: Yes Code(s): R53.81 - Other malaise (3) Dementia Status: Chronic Current Visit: Yes Qualifiers: Dementia type: unspecified type Dementia behavioral disturbance: without behavioral disturbance Qualified Code(s): F03.90 - Unspecified dementia without behavioral disturbance Code(s): F03.90 - Unspecified dementia without behavioral disturbance (4) Immobility Status: Chronic Current Visit: Yes Code(s): Z74.09 - Other reduced mobility Type of Wound Date of Service: 01/29/18 Chief Complaint: Stage II pressure ulceration of the right upper buttock History of Wound: This is an 82-year-old female who is debilitated, and suffers from dementia. She lives with her son and mcpqvilv-oh-ggv. Her kieqjsmi-qn-ush is a nurse. Patient presents with a stage II pressure ulceration of the right upper buttock, which is said to have been present for approximately 1 month. Additionally, there is a fullness in the left upper buttock, with overlying skin changes, though no breach in skin integrity. There are also signs of pressure phenomenon on each of the lower buttocks. The patient sleeps on a regular mattress. She has a gel cushion for her wheelchair. She is largely immobile, though walks short distances with the aid of a walker. The patient's appetite is said to be good. The patient has recently completed courses of Keflex and Cefdinir orally. She was seen by Dr. English last week and Santyl was prescribed for treatment. Her daughter in law has been doing this daily without complication. They have been working on offloading but bedtime is difficult. A low air loss mattress was ordered but they have not heard back from insurance at this time. Progress of Wound: Ricardo is here today with her daughter in law and has been tolerating Aquacel Ag rope. Ricardo completed antibiotics for positive wound culture. Home Health has been consulted and are coming 2-3 times/week to help with dressing changes. Low air loss mattress is not covered by her insurance due to her deductable not being met. It would cost $800. They have tried placing foam mats down on her bed to try to help relieve pressure. No increase in drainage or pain per the patient's daughter in law. - Physical Exam Vital Signs Temp Pulse Resp BP 97.5 F L 95 16 163/85 H 01/29/18 13:55 01/29/18 13:55 01/29/18 13:55 01/29/18 13:55 General: Alert, Oriented x3, Cooperative, No apparent distress HEENT: Atraumatic, Normocephalic Oral: Moist Mucosa Abdomen: Obese Skin: Ulcer/ Wound Wound Measurements and Assessment WC - Nurse 1 - General Ulcer Measurement Start: 01/15/18 13:59 Freq: Status: Active Protocol: Activity Type Activity Date Activity User E-Sign Co-Sign Detail Recorded Client Recorded Date Recorded By Document 01/29/18 13:55 [id number] 01/29/18 13:57 01/29/18 13:55 Wound Center Nurse 1 [Ulcer Assessment] #2- RT UPPER BUTTOCK STAGE 3 PRESSURE ULCER -Combined with other wound No -Current Size (cm) - Length 1 -Current Size (cm) - Width 1.1 -Current Size (cm) - Depth 2.5 -Total Square Cm 1.1 -Photo Taken No -Epithelialization None Present -Tunneling No -Undermining/Tunneling No -Circular Undermining No -Exudate Amt Large (67-100%) -Exudate Type Serosanguineous -Wound Margin Distinct, Outline Attached -Granulation Amt None Present (0 %) -Granulation Quality N/A -Slough/Fibrin Yes -Necrosis Amt None Present (0 %) -Necrotic Tissue Type Adherent Slough -Texture (Catalina-wound Skin Appearance) No Abnormality Assessed -Moisture (Catalina-wound Skin Appearance No Abnormality ) Assessed -Color (Catalina-wound Skin Appearance) No Abnormality Assessed -Temperature (Catalina-wound Skin No Abnormality Appearance) (Pt Warm) -Tenderness on Palpation (Catalina-wound Yes Skin Appearance) -Ulcer Cleansing Rinsed/ Irrigated with Saline -Foul Odor after Cleansing No -Anesthetic Used 4% Lidocaine Solution [Edema Assessment] -Lower Limb Edema Present NA Psych/Mental Status: Normal Affect, Appropriate Debridement Note Post-Debridement Measurements/Treatment WC - Nurse 2 - General Ulcer CM Notes Start: 01/15/18 13:59 Freq: Status: Active Protocol: Activity Type Activity Date Activity User E-Sign Co-Sign Detail Recorded Client Recorded Date Recorded By Document 01/15/18 16:13 TM [id number] 01/15/18 16:29 TM Document 01/22/18 16:19 TM [id number] 01/22/18 16:22 TM 01/15/18 01/22/18 16:13 16:19 Wound Center Nurse 2 #2- RT UPPER BUTTOCK STAGE 3 PRESSURE ULCER -Time 16:13 16:20 -Correct Patient Yes Yes -Correct Side, Site, Position Yes Yes -Correct Procedure Yes Yes -Procedure Performed Yes Yes -Type of Procedure Debridement Debridement -Clinical Debridement Subcutaneous Subcutaneous -Post Debridement Size (cm) - Length 1.3 1.1 -Post Debridement Size (cm) - Width 1.6 1.8 -Post Debridement Size (cm) - Depth 1.4 2.0 -Total Square Cm 2.08 1.98 -Wound/Ulcer Outcome Not Healed Not Healed -Ulcer Cleansing Rinsed/ Rinsed/ Irrigated with Irrigated with Saline Saline -Foul Odor after Cleansing No No -Bioengineered Tissue No No -Topical Lidocaine (%) 5 5 -Bleeding Controlled with Pressure Pressure -Other UNDERMINING @11 UNDERMINING @1- -1 OCLOCK -2.5 2 (1.7CM) @ 7-1 CM (1.0CM) -Treatment Response Procedure Procedure Tolerated Well Tolerated Well Pain Scale: 0-10 Numeric Is Patient Pain Free? Yes Yes Wound debrided: right upper buttock stage III pressure ulcer Laterality: Right Wound Grade/Stage: stage III Type of Debridement: Excisional debridement Anesthesia Used: 4% Lidocaine Solution, 5% Lidocaine Gel Depth: Down to and including healthy tissue, in the subcutaneous layer Percentage of wound debrided: 100 Instrument Used: 7mm curette, #15 blade, Forceps Tissue Removed: yellow slough, devitalized tissue Severity: Fat Layer Exposed Amount of bleeding with debridement: Mild Bleeding Controlled with: Compression and gauze Patient tolerated procedure well Assessment/Plan Active Problems Debility (Chronic) Dementia (Chronic) Immobility (Chronic) Stage III pressure ulcer of sacral region (Chronic) Assessment: This is an 82-year-old female who presents with evidence of pressure phenomenon in the buttocks. There is a stage III pressure ulceration on the right upper buttock. There is evidence of fullness in the left upper buttock, though no breach of skin integrity. There are also some early skin changes in the lower buttocks, also suggesting pressure phenomenon. Plan: The pressure ulcer is improved compared to last week. We are going to continue to pack the wound with Aquacel Ag rope. This will be changed every other day and as needed. Home Health is providing services through [facility]. Discussed considering wound vac treatment with snapvac. Daughter in law would like to hold off on this at the present time. Continue to use OptiFoam or equivalent on both areas on the upper buttocks to minimize pressure and shear forces. Offloading measures encouraged. These have been discussed with the patient and with her djcjtwna-fx-tpo, who is at the bedside. The gnjwmyvf-th-azb is a nurse, and appears to understand the recommendations. Patient is to continue using her gel cushion on her wheelchair. Frequent repositioning has been recommended. Labs reviewed and WNL. Good nutrition has been recommended, with the use of nutritional supplements such as Glucerna. Optimization of the patient's glycemic status has been also recommended. F/U in 1 week.
[2018-02-05 13:09] VITALS: BP 158/56; PULSE 78; RESP 16; TEMP 36.3
--- NOTE | 2018-02-05 21:16 | PCM.WC.PN ---
(1) Stage III pressure ulcer of sacral region Status: Chronic Current Visit: Yes Code(s): L89.153 - Pressure ulcer of sacral region, stage 3 (2) Debility Status: Chronic Current Visit: Yes Code(s): R53.81 - Other malaise (3) Dementia Status: Chronic Current Visit: Yes Qualifiers: Dementia type: unspecified type Dementia behavioral disturbance: without behavioral disturbance Qualified Code(s): F03.90 - Unspecified dementia without behavioral disturbance Code(s): F03.90 - Unspecified dementia without behavioral disturbance (4) Immobility Status: Chronic Current Visit: Yes Code(s): Z74.09 - Other reduced mobility Type of Wound Date of Service: 02/05/18 Chief Complaint: Stage II pressure ulceration of the right upper buttock History of Wound: This is an 82-year-old female who is debilitated, and suffers from dementia. She lives with her son and deealdpk-xb-ous. Her qmaflkej-ca-knk is a nurse. Patient presents with a stage II pressure ulceration of the right upper buttock, which is said to have been present for approximately 1 month. Additionally, there is a fullness in the left upper buttock, with overlying skin changes, though no breach in skin integrity. There are also signs of pressure phenomenon on each of the lower buttocks. The patient sleeps on a regular mattress. She has a gel cushion for her wheelchair. She is largely immobile, though walks short distances with the aid of a walker. The patient's appetite is said to be good. The patient has recently completed courses of Keflex and Cefdinir orally. She was seen by Dr. English last week and Santyl was prescribed for treatment. Her daughter in law has been doing this daily without complication. They have been working on offloading but bedtime is difficult. A low air loss mattress was ordered but they have not heard back from insurance at this time. Progress of Wound: Ricardo is here today with her daughter in law and has been tolerating Aquacel Ag rope. Ricardo completed antibiotics for positive wound culture. Home Health has been consulted and are coming 2-3 times/week to help with dressing changes. Low air loss mattress is not covered by her insurance due to her deductable not being met. It would cost $800. They have tried placing foam mats down on her bed to try to help relieve pressure. No increase in drainage or pain per the patient's daughter in law. She will be entering SNF in the next few weeks at [facility]. - Physical Exam Vital Signs Temp Pulse Resp BP 97.3 F L 78 16 158/56 H 02/05/18 13:09 02/05/18 13:09 02/05/18 13:09 02/05/18 13:09 General: Alert, Oriented x3, Cooperative, No apparent distress HEENT: Atraumatic, Normocephalic Oral: Moist Mucosa Abdomen: Obese Skin: Ulcer/ Wound Wound Measurements and Assessment WC - Nurse 1 - General Ulcer Measurement Start: 01/15/18 13:59 Freq: Status: Active Protocol: Activity Type Activity Date Activity User E-Sign Co-Sign Detail Recorded Client Recorded Date Recorded By Document 02/05/18 13:09 [id number] 02/05/18 13:11 CS 02/05/18 13:09 Wound Center Nurse 1 [Ulcer Assessment] #2- RT UPPER BUTTOCK STAGE 3 PRESSURE ULCER -Combined with other wound No -Current Size (cm) - Length 1.3 -Current Size (cm) - Width 1.2 -Current Size (cm) - Depth 0.8 -Total Square Cm 1.56 -Photo Taken No -Epithelialization None Present -Tunneling No -Undermining/Tunneling No -Circular Undermining No -Exudate Amt Medium (34-66%) -Exudate Type Serosanguineous -Wound Margin Distinct, Outline Attached -Granulation Amt Medium (34-66%) -Granulation Quality Red -Slough/Fibrin Yes -Necrosis Amt None Present (0 %) -Necrotic Tissue Type Adherent Slough -Texture (Catalina-wound Skin Appearance) No Abnormality Assessed -Moisture (Catalina-wound Skin Appearance No Abnormality ) Assessed -Color (Catalina-wound Skin Appearance) No Abnormality Assessed -Temperature (Catalina-wound Skin No Abnormality Appearance) (Pt Warm) -Tenderness on Palpation (Catalina-wound No Skin Appearance) -Ulcer Cleansing Rinsed/ Irrigated with Saline -Foul Odor after Cleansing No -Anesthetic Used 5% Lidocaine Gel [Edema Assessment] -Lower Limb Edema Present NA WC - Nurse 2 - General Ulcer CM Notes Start: 01/15/18 13:59 Freq: Status: Active Protocol: Activity Type Activity Date Activity User E-Sign Co-Sign Detail Recorded Client Recorded Date Recorded By Document 02/05/18 13:22 [id number] 02/05/18 13:27 TM 02/05/18 13:22 Wound Center Nurse 2 [Procedure/Treatment] #2- RT UPPER BUTTOCK STAGE 3 PRESSURE ULCER -Time 13:26 -Correct Patient Yes -Correct Side, Site, Position Yes -Correct Procedure Yes -Procedure Performed Yes -Type of Procedure Debridement -Clinical Debridement Subcutaneous -Post Debridement Size (cm) - Length 1.2 -Post Debridement Size (cm) - Width 1.5 -Post Debridement Size (cm) - Depth 1.0 -Total Square Cm 1.80 -Wound/Ulcer Outcome Not Healed -Ulcer Cleansing Rinsed/ Irrigated with Saline -Foul Odor after Cleansing No -Bioengineered Tissue No -Topical Lidocaine (%) 5 -Bleeding Controlled with Pressure -Other UNDERMINING @ 1 -2 (0.4CM) -Treatment Response Procedure Tolerated Well [See Physician Procedure note for Specifics] Pain Scale: 0-10 Numeric [Pain] -Is Patient Pain Free? Yes Psych/Mental Status: Normal Affect, Appropriate Debridement Note Post-Debridement Measurements/Treatment WC - Nurse 2 - General Ulcer CM Notes Start: 01/15/18 13:59 Freq: Status: Active Protocol: Activity Type Activity Date Activity User E-Sign Co-Sign Detail Recorded Client Recorded Date Recorded By Document 01/15/18 16:13 TM [id number] 01/15/18 16:29 TM Document 01/22/18 16:19 TM [id number] 01/22/18 16:22 TM Document 01/29/18 14:05 TM [id number] 01/29/18 14:24 TM Document 02/05/18 13:22 TM [id number] 02/05/18 13:27 TM 01/15/18 01/22/18 01/29/18 16:13 16:19 14:05 Wound Center Nurse 2 #2- RT UPPER BUTTOCK STAGE 3 PRESSURE ULCER -Time 16:13 16:20 14:05 -Correct Patient Yes Yes Yes -Correct Side, Site, Position Yes Yes Yes -Correct Procedure Yes Yes Yes -Procedure Performed Yes Yes Yes -Type of Procedure Debridement Debridement Debridement -Clinical Debridement Subcutaneous Subcutaneous Subcutaneous -Post Debridement Size (cm) - Length 1.3 1.1 1.2 -Post Debridement Size (cm) - Width 1.6 1.8 1.0 -Post Debridement Size (cm) - Depth 1.4 2.0 1.0 -Total Square Cm 2.08 1.98 1.20 -Wound/Ulcer Outcome Not Healed Not Healed Not Healed -Ulcer Cleansing Rinsed/ Rinsed/ Rinsed/ Irrigated with Irrigated with Irrigated with Saline Saline Saline -Foul Odor after Cleansing No No No -Bioengineered Tissue No No No -Topical Lidocaine (%) 5 5 5 -Bleeding Controlled with Pressure Pressure Pressure -Other UNDERMINING @11 UNDERMINING @1- UNDERMINING @1- -1 OCLOCK -2.5 2 (1.7CM) @ 7-1 2 (1.0CM) CM (1.0CM) -Treatment Response Procedure Procedure Procedure Tolerated Well Tolerated Well Tolerated Well Pain Scale: 0-10 Numeric Is Patient Pain Free? Yes Yes Yes 02/05/18 13:22 Wound Center Nurse 2 #2- RT UPPER BUTTOCK STAGE 3 PRESSURE ULCER -Time 13:26 -Correct Patient Yes -Correct Side, Site, Position Yes -Correct Procedure Yes -Procedure Performed Yes -Type of Procedure Debridement -Clinical Debridement Subcutaneous -Post Debridement Size (cm) - Length 1.2 -Post Debridement Size (cm) - Width 1.5 -Post Debridement Size (cm) - Depth 1.0 -Total Square Cm 1.80 -Wound/Ulcer Outcome Not Healed -Ulcer Cleansing Rinsed/ Irrigated with Saline -Foul Odor after Cleansing No -Bioengineered Tissue No -Topical Lidocaine (%) 5 -Bleeding Controlled with Pressure -Other UNDERMINING @ 1 -2 (0.4CM) -Treatment Response Procedure Tolerated Well Pain Scale: 0-10 Numeric Is Patient Pain Free? Yes Wound debrided: right upper buttocks Laterality: Right Wound Grade/Stage: stage III Type of Debridement: Excisional debridement Anesthesia Used: 4% Lidocaine Solution Depth: Down to and including healthy tissue, in the subcutaneous layer Percentage of wound debrided: 100 Instrument Used: 5mm curette Tissue Removed: devitalized tissue, slough Severity: Fat Layer Exposed Amount of bleeding with debridement: Mild Bleeding Controlled with: Compression and gauze Patient tolerated procedure well Assessment/Plan Active Problems Debility (Chronic) Dementia (Chronic) Immobility (Chronic) Stage III pressure ulcer of sacral region (Chronic) Assessment: This is an 82-year-old female who presents with evidence of pressure phenomenon in the buttocks. There is a stage III pressure ulceration on the right upper buttock. There is evidence of fullness in the left upper buttock, though no breach of skin integrity. There are also some early skin changes in the lower buttocks, also suggesting pressure phenomenon. Plan: The pressure ulcer is improved slightly compared to last week. We are going to continue to pack the wound with Aquacel Ag rope. This will be changed every other day and as needed. Home Health is providing services through [facility]. Discussed considering wound vac treatment with snapvac. Daughter in law would like to hold off on this at the present time. Continue to use OptiFoam or equivalent on both areas on the upper buttocks to minimize pressure and shear forces. Offloading measures encouraged. These have been discussed with the patient and with her esprvyre-ib-aoy, who is at the bedside. The sawejjnu-zs-rry is a nurse, and appears to understand the recommendations. Patient is to continue using her gel cushion on her wheelchair. Frequent repositioning has been recommended. Labs reviewed and WNL. Good nutrition has been recommended, with the use of nutritional supplements such as Glucerna. Optimization of the patient's glycemic status has been also recommended. F/U in 1 week.
[2018-02-12 13:36] VITALS: BP 152/58; PULSE 81; RESP 18; TEMP 36.4
--- NOTE | 2018-02-12 19:29 | PCM.WC.PN ---
(1) Stage III pressure ulcer of sacral region Status: Chronic Current Visit: Yes Code(s): L89.153 - Pressure ulcer of sacral region, stage 3 (2) Debility Status: Chronic Current Visit: Yes Code(s): R53.81 - Other malaise (3) Dementia Status: Chronic Current Visit: Yes Qualifiers: Dementia type: unspecified type Dementia behavioral disturbance: without behavioral disturbance Qualified Code(s): F03.90 - Unspecified dementia without behavioral disturbance Code(s): F03.90 - Unspecified dementia without behavioral disturbance (4) Immobility Status: Chronic Current Visit: Yes Code(s): Z74.09 - Other reduced mobility Type of Wound Date of Service: 02/12/18 Chief Complaint: Stage II pressure ulceration of the right upper buttock History of Wound: This is an 82-year-old female who is debilitated, and suffers from dementia. She lives with her son and zidcpzxw-bu-pvh. Her pjkpsaws-ms-naj is a nurse. Patient presents with a stage II pressure ulceration of the right upper buttock, which is said to have been present for approximately 1 month. Additionally, there is a fullness in the left upper buttock, with overlying skin changes, though no breach in skin integrity. There are also signs of pressure phenomenon on each of the lower buttocks. The patient sleeps on a regular mattress. She has a gel cushion for her wheelchair. She is largely immobile, though walks short distances with the aid of a walker. The patient's appetite is said to be good. The patient has recently completed courses of Keflex and Cefdinir orally. She was seen by Dr. English last week and Santyl was prescribed for treatment. Her daughter in law has been doing this daily without complication. They have been working on offloading but bedtime is difficult. A low air loss mattress was ordered but they have not heard back from insurance at this time. Progress of Wound: Ricardo is here today with her daughter in law and has been tolerating Aquacel Ag rope. Home Health has been consulted and are coming 2-3 times/week to help with dressing changes. Low air loss mattress is not covered by her insurance due to her deductable not being met. It would cost $800. They have tried placing foam mats down on her bed to try to help relieve pressure. No increase in drainage or pain per the patient's daughter in law. She will be entering SNF in the next few weeks at [facility]. - Physical Exam Vital Signs Temp Pulse Resp BP 97.5 F L 81 18 152/58 H 02/12/18 13:36 02/12/18 13:36 02/12/18 13:36 02/12/18 13:36 General: Alert, Oriented x3, Cooperative, No apparent distress HEENT: Atraumatic, Normocephalic Oral: Moist Mucosa Abdomen: Obese Skin: Ulcer/ Wound Wound Measurements and Assessment - Nurse 1 - General Ulcer Measurement Start: 01/15/18 13:59 Freq: Status: Active Protocol: Activity Type Activity Date Activity User E-Sign Co-Sign Detail Recorded Client Recorded Date Recorded By Document 02/12/18 13:36 [facility] [id number] 02/12/18 13:40 [facility] 02/12/18 13:36 Wound Center Nurse 1 [Ulcer Assessment] #2- RT UPPER BUTTOCK STAGE 3 PRESSURE ULCER -Combined with other wound No -Current Size (cm) - Length 1.4 -Current Size (cm) - Width 1.1 -Current Size (cm) - Depth 1.1 -Total Square Cm 1.54 -Photo Taken No -Tunneling No -Undermining/Tunneling No -Circular Undermining No -Exudate Amt Medium (34-66%) -Exudate Type Serosanguineous -Granulation Amt Medium (34-66%) -Granulation Quality Red -Slough/Fibrin Yes -Necrosis Amt Medium (34-66%) -Necrotic Tissue Type Adherent Slough -Structure Exposed Fat Layer Exposed -Texture (Catalina-wound Skin Appearance) Scarring -Moisture (Catalina-wound Skin Appearance Assessed ) -Color (Catalina-wound Skin Appearance) Erythema -Temperature (Catalina-wound Skin No Abnormality Appearance) (Pt Warm) -Tenderness on Palpation (Catalina-wound Yes Skin Appearance) -Ulcer Cleansing Rinsed/ Irrigated with Saline -Foul Odor after Cleansing No -Anesthetic Used 4% Lidocaine Solution - Nurse 2 - General Ulcer CM Notes Start: 01/15/18 13:59 Freq: Status: Active Protocol: Activity Type Activity Date Activity User E-Sign Co-Sign Detail Recorded Client Recorded Date Recorded By Document 02/12/18 14:39 [id number] 02/12/18 14:39 TM 02/12/18 14:39 Wound Center Nurse 2 [Procedure/Treatment] -Time 14:39 -Correct Patient Yes -Correct Side, Site, Position Yes -Correct Procedure Yes -Procedure Performed Yes -Type of Procedure Debridement -Clinical Debridement Subcutaneous -Post Debridement Size (cm) - Length 1.3 -Post Debridement Size (cm) - Width 1.4 -Post Debridement Size (cm) - Depth 1.1 -Total Square Cm 1.82 -Wound/Ulcer Outcome Not Healed -Ulcer Cleansing Rinsed/ Irrigated with Saline -Foul Odor after Cleansing No -Bioengineered Tissue No -Topical Lidocaine (%) 5 -Bleeding Controlled with Pressure -Treatment Response Procedure Tolerated Well [See Physician Procedure note for Specifics] Pain Scale: 0-10 Numeric [Pain] -Is Patient Pain Free? Yes Psych/Mental Status: Normal Affect, Appropriate Debridement Note Post-Debridement Measurements/Treatment WC - Nurse 2 - General Ulcer CM Notes Start: 01/15/18 13:59 Freq: Status: Active Protocol: Activity Type Activity Date Activity User E-Sign Co-Sign Detail Recorded Client Recorded Date Recorded By Document 01/15/18 16:13 TM [id number] 01/15/18 16:29 TM Document 01/22/18 16:19 TM [id number] 01/22/18 16:22 TM Document 01/29/18 14:05 TM [id number] 01/29/18 14:24 TM Document 02/05/18 13:22 TM [id number] 02/05/18 13:27 TM Document 02/12/18 14:39 TM [id number] 02/12/18 14:39 TM 01/15/18 01/22/18 01/29/18 16:13 16:19 14:05 Wound Center Nurse 2 #2- RT UPPER BUTTOCK STAGE 3 PRESSURE ULCER -Time 16:13 16:20 14:05 -Correct Patient Yes Yes Yes -Correct Side, Site, Position Yes Yes Yes -Correct Procedure Yes Yes Yes -Procedure Performed Yes Yes Yes -Type of Procedure Debridement Debridement Debridement -Clinical Debridement Subcutaneous Subcutaneous Subcutaneous -Post Debridement Size (cm) - Length 1.3 1.1 1.2 -Post Debridement Size (cm) - Width 1.6 1.8 1.0 -Post Debridement Size (cm) - Depth 1.4 2.0 1.0 -Total Square Cm 2.08 1.98 1.20 -Wound/Ulcer Outcome Not Healed Not Healed Not Healed -Ulcer Cleansing Rinsed/ Rinsed/ Rinsed/ Irrigated with Irrigated with Irrigated with Saline Saline Saline -Foul Odor after Cleansing No No No -Bioengineered Tissue No No No -Topical Lidocaine (%) 5 5 5 -Bleeding Controlled with Pressure Pressure Pressure -Other UNDERMINING @11 UNDERMINING @1- UNDERMINING @1- -1 OCLOCK -2.5 2 (1.7CM) @ 7-1 2 (1.0CM) CM (1.0CM) -Treatment Response Procedure Procedure Procedure Tolerated Well Tolerated Well Tolerated Well Pain Scale: 0-10 Numeric Is Patient Pain Free? Yes Yes Yes 02/05/18 02/12/18 13:22 14:39 Wound Center Nurse 2 #2- RT UPPER BUTTOCK STAGE 3 PRESSURE ULCER -Time 13:26 14:39 -Correct Patient Yes Yes -Correct Side, Site, Position Yes Yes -Correct Procedure Yes Yes -Procedure Performed Yes Yes -Type of Procedure Debridement Debridement -Clinical Debridement Subcutaneous Subcutaneous -Post Debridement Size (cm) - Length 1.2 1.3 -Post Debridement Size (cm) - Width 1.5 1.4 -Post Debridement Size (cm) - Depth 1.0 1.1 -Total Square Cm 1.80 1.82 -Wound/Ulcer Outcome Not Healed Not Healed -Ulcer Cleansing Rinsed/ Rinsed/ Irrigated with Irrigated with Saline Saline -Foul Odor after Cleansing No No -Bioengineered Tissue No No -Topical Lidocaine (%) 5 5 -Bleeding Controlled with Pressure Pressure -Other UNDERMINING @ 1 -2 (0.4CM) -Treatment Response Procedure Procedure Tolerated Well Tolerated Well Pain Scale: 0-10 Numeric Is Patient Pain Free? Yes Yes Wound debrided: right upper buttock stage 3 pressure ulcer Laterality: Right Wound Grade/Stage: stage III pressure ulcer Type of Debridement: Excisional debridement Anesthesia Used: 4% Lidocaine Solution Depth: Down to and including healthy tissue, in the subcutaneous layer Percentage of wound debrided: 100 Instrument Used: 5mm curette Tissue Removed: yellow slough, devitalized tissue Severity: Fat Layer Exposed Amount of bleeding with debridement: Mild Bleeding Controlled with: Compression and gauze Patient tolerated procedure well Assessment/Plan Active Problems Debility (Chronic) Dementia (Chronic) Immobility (Chronic) Stage III pressure ulcer of sacral region (Chronic) Assessment: This is an 82-year-old female who presents with evidence of pressure phenomenon in the buttocks. There is a stage III pressure ulceration on the right upper buttock. There is evidence of fullness in the left upper buttock, though no breach of skin integrity. There are also some early skin changes in the lower buttocks, also suggesting pressure phenomenon. Plan: The pressure ulcer is improved slightly compared to last week but has increased slough that is not easily debrided. Will have them use Santyl to the wound with an ABD to absorb drainage. This will be changed every other day and as needed. Home Health is providing services through [facility]. Discussed considering wound vac treatment with snapvac. Daughter in law would like to hold off on this at the present time. Continue to use OptiFoam or equivalent on both areas on the upper buttocks to minimize pressure and shear forces. Offloading measures encouraged. These have been discussed with the patient and with her nhpymclq-jf-vyn, who is at the bedside. The ucimriab-qu-wno is a nurse, and appears to understand the recommendations. Patient is to continue using her gel cushion on her wheelchair. Frequent repositioning has been recommended. Labs reviewed and WNL. Good nutrition has been recommended, with the use of nutritional supplements such as Glucerna. Optimization of the patient's glycemic status has been also recommended. F/U in 1 week.
== END 2018-02-12 23:59 ==
LOC: WC 13:30
PROVIDERS: Visit Provider Family Medicine
DX: E11.622 Type 2 diabetes mellitus with other skin ulcer (principal); F03.90 Unspecified dementia, unspecified severity, without behavioral disturbance, psychotic disturbance, mood disturbance, and anxiety; L89.152 Pressure ulcer of sacral region, stage 2
CPT/HCPCS: 11042; 87070; 87075; 87205; 97602

== ENCOUNTER 2018-03-11 14:00 | Outpatient (RCR) | payer MEDICARE, SELFPAY ==
[2018-02-13 01:19] VITALS: BP 152/58; PULSE 81; RESP 18; TEMP 36.4
[2018-02-19 13:26] VITALS: BP 164/87; PULSE 91; RESP 16; TEMP 36.2
--- NOTE | 2018-02-19 17:35 | PCM.WC.PN ---
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 mellitus extermination supervisor insulin use: unspecified extermination supervisor insulin use status Code(s): E11.9 - Type 2 diabetes mellitus without complications (5) Incontinence of urine Status: Chronic Current Visit: Yes Qualifiers: Urinary Incontinence type: urinary incontinence without sensory awareness Qualified Code(s): N39.42 - Incontinence without sensory awareness Code(s): R32 - Unspecified urinary incontinence (6) Stage III pressure ulcer of sacral region Status: Chronic Current Visit: Yes Code(s): L89.153 - Pressure ulcer of sacral region, stage 3 Type of Wound Date of Service: 02/19/18 Chief Complaint: Stage II pressure ulceration of the right upper buttock History of Wound: This is an 82-year-old female who is debilitated, and suffers from dementia. She lives with her son and ajfhbfyp-dc-mle. Her fpebwczk-rb-ags is a nurse. Patient presents with a stage II pressure ulceration of the right upper buttock, which is said to have been present for approximately 1 month. Additionally, there is a fullness in the left upper buttock, with overlying skin changes, though no breach in skin integrity. There are also signs of pressure phenomenon on each of the lower buttocks. The patient sleeps on a regular mattress. She has a gel cushion for her wheelchair. She is largely immobile, though walks short distances with the aid of a walker. The patient's appetite is said to be good. The patient has recently completed courses of Keflex and Cefdinir orally. She was seen by Dr. English last week and Santyl was prescribed for treatment. Her daughter in law has been doing this daily without complication. They have been working on offloading but bedtime is difficult. A low air loss mattress was ordered but they have not heard back from insurance at this time. Progress of Wound: Ricardo is here today with her daughter in law and has been tolerating Santyl application. Home Health has been consulted and are coming 2-3 times/week to help with dressing changes. She will be entering SNF care at [place] today after her visit in order to provide better offloading to help heal the pressure ulcer. Low air loss mattress was not covered by her insurance due to her deductable not being met. It would cost $800. They have tried placing foam mats down on her bed to try to help relieve pressure. No increase in drainage or pain per the patient's daughter in law. - Physical Exam Vital Signs Temp Pulse Resp BP 97.1 F L 91 16 164/87 H 02/19/18 13:26 02/19/18 13:26 02/19/18 13:26 02/19/18 13:26 General: Alert, Oriented x3, Cooperative, No apparent distress HEENT: Atraumatic, Normocephalic Oral: Moist Mucosa Abdomen: Obese Skin: Ulcer/ Wound Wound Measurements and Assessment WC - Nurse 1 - General Ulcer Measurement Start: 02/19/18 13:21 Freq: Status: Active Protocol: Activity Type Activity Date Activity User E-Sign Co-Sign Detail Recorded Client Recorded Date Recorded By Document 02/19/18 13:26 [facility] [id number] 02/19/18 13:32 [facility] 02/19/18 13:26 Wound Center Nurse 1 [Ulcer Assessment] #2- RT UPPER BUTTOCK STAGE 3 PRESSURE ULCER -Combined with other wound No -Current Size (cm) - Length 0.8 -Current Size (cm) - Width 0.8 -Current Size (cm) - Depth 0.9 -Total Square Cm 0.64 -Photo Taken No -Epithelialization None Present -Tunneling No -Undermining/Tunneling No -Circular Undermining No -Exudate Amt Small (1-33%) -Exudate Type Serosanguineous -Wound Margin Distinct, Outline Attached -Granulation Amt Small (1-33%) -Granulation Quality Red -Slough/Fibrin Yes -Necrosis Amt Medium (34-66%) -Necrotic Tissue Type Adherent Slough -Texture (Catalina-wound Skin Appearance) Scarring -Moisture (Catalina-wound Skin Appearance Assessed ) -Color (Catalina-wound Skin Appearance) Erythema -Temperature (Catalina-wound Skin No Abnormality Appearance) (Pt Warm) -Tenderness on Palpation (Catalina-wound No Skin Appearance) -Ulcer Cleansing Rinsed/ Irrigated with Saline -Foul Odor after Cleansing No -Anesthetic Used 5% Lidocaine Gel CARLA - Nurse 2 - General Ulcer CM Notes Start: 02/19/18 13:21 Freq: Status: Active Protocol: Activity Type Activity Date Activity User E-Sign Co-Sign Detail Recorded Client Recorded Date Recorded By Document 02/19/18 14:06 [id number] 02/19/18 14:07 02/19/18 14:06 Wound Center Nurse 2 [Procedure/Treatment] -Time 14:06 -Correct Patient Yes -Correct Side, Site, Position Yes -Correct Procedure Yes -Procedure Performed Yes -Type of Procedure Debridement -Clinical Debridement Subcutaneous -Post Debridement Size (cm) - Length 1.0 -Post Debridement Size (cm) - Width 0.8 -Post Debridement Size (cm) - Depth 1.8 -Total Square Cm 0.80 -Wound/Ulcer Outcome Not Healed -Ulcer Cleansing Rinsed/ Irrigated with Saline -Foul Odor after Cleansing No -Bioengineered Tissue No -Topical Lidocaine (%) 5 -Bleeding Controlled with Pressure -Treatment Response Procedure Tolerated Well [See Physician Procedure note for Specifics] Pain Scale: 0-10 Numeric [Pain] -Is Patient Pain Free? Yes Psych/Mental Status: Normal Affect, Appropriate Debridement Note Post-Debridement Measurements/Treatment CARLA - Nurse 2 - General Ulcer CM Notes Start: 02/19/18 13:21 Freq: Status: Active Protocol: Activity Type Activity Date Activity User E-Sign Co-Sign Detail Recorded Client Recorded Date Recorded By Document 02/19/18 14:06 [id number] 02/19/18 14:07 02/19/18 14:06 Wound Center Nurse 2 #2- RT UPPER BUTTOCK STAGE 3 PRESSURE ULCER -Time 14:06 -Correct Patient Yes -Correct Side, Site, Position Yes -Correct Procedure Yes -Procedure Performed Yes -Type of Procedure Debridement -Clinical Debridement Subcutaneous -Post Debridement Size (cm) - Length 1.0 -Post Debridement Size (cm) - Width 0.8 -Post Debridement Size (cm) - Depth 1.8 -Total Square Cm 0.80 -Wound/Ulcer Outcome Not Healed -Ulcer Cleansing Rinsed/ Irrigated with Saline -Foul Odor after Cleansing No -Bioengineered Tissue No -Topical Lidocaine (%) 5 -Bleeding Controlled with Pressure -Treatment Response Procedure Tolerated Well Pain Scale: 0-10 Numeric Is Patient Pain Free? Yes Wound debrided: right upper buttock stage III pressure ulcer Laterality: Right Wound Grade/Stage: stage III Type of Debridement: Excisional debridement Anesthesia Used: 4% Lidocaine Solution Depth: Down to and including healthy tissue, in the subcutaneous layer Percentage of wound debrided: 100 Instrument Used: 5mm curette Tissue Removed: yellow slough, devitalized tissue Severity: Fat Layer Exposed Amount of bleeding with debridement: Mild Bleeding Controlled with: Compression and gauze Patient tolerated procedure well Assessment/Plan Active Problems Debility (Chronic) Dementia (Chronic) Immobility (Chronic) Diabetes (Chronic) Incontinence of urine (Chronic) Stage III pressure ulcer of sacral region (Chronic) Assessment: This is an 82-year-old female who presents with evidence of pressure phenomenon in the buttocks. There is a stage III pressure ulceration on the right upper buttock. There is evidence of fullness in the left upper buttock, though no breach of skin integrity. There are also some early skin changes in the lower buttocks, also suggesting pressure phenomenon. Plan: The pressure ulcer is improved slightly compared to last week but still has some slough present. Will have them use Santyl to the wound with optifoam or equivalent. This will be changed everyday and as needed. Continue to use OptiFoam or equivalent on both areas on the upper buttocks to minimize pressure and shear forces. Offloading measures encouraged with frequent position changes every 2 hours around the clock. These have been discussed with the patient and with her axognkyo-kg-hkw, who is at the bedside. The jmylowsn-rx-xjv is a nurse, and appears to understand the recommendations. Patient is to continue using her gel cushion on her wheelchair. Frequent repositioning has been recommended. Labs reviewed and WNL. Good nutrition has been recommended, with the use of nutritional supplements such as Glucerna. Optimization of the patient's glycemic status has been also recommended. F/U in 1 week.
[2018-02-26 14:15] VITALS: BP 145/61; PULSE 85; RESP 16; TEMP 36.5
--- NOTE | 2018-02-26 19:20 | PCM.WC.PN ---
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: unspecified intermediate project manager insulin use status Code(s): E11.9 - Type 2 diabetes mellitus without complications (5) Incontinence of urine Status: Chronic Current Visit: Yes Qualifiers: Urinary Incontinence type: urinary incontinence without sensory awareness Qualified Code(s): N39.42 - Incontinence without sensory awareness Code(s): R32 - Unspecified urinary incontinence (6) Stage III pressure ulcer of sacral region Status: Chronic Current Visit: Yes Code(s): L89.153 - Pressure ulcer of sacral region, stage 3 Type of Wound Date of Service: 02/26/18 Chief Complaint: Stage II pressure ulceration of the right upper buttock History of Wound: This is an 82-year-old female who is debilitated, and suffers from dementia. She lives with her son and wtrilsrd-ae-yik. Her qirftucx-yw-eds is a nurse. Patient presents with a stage II pressure ulceration of the right upper buttock, which is said to have been present for approximately 1 month. Additionally, there is a fullness in the left upper buttock, with overlying skin changes, though no breach in skin integrity. There are also signs of pressure phenomenon on each of the lower buttocks. The patient sleeps on a regular mattress. She has a gel cushion for her wheelchair. She is largely immobile, though walks short distances with the aid of a walker. The patient's appetite is said to be good. The patient has recently completed courses of Keflex and Cefdinir orally. She was seen by Dr. English last week and Santyl was prescribed for treatment. Her daughter in law has been doing this daily without complication. They have been working on offloading but bedtime is difficult. A low air loss mattress was ordered but they have not heard back from insurance at this time. Progress of Wound: Ricardo is here today with her daughter in law and has been tolerating Santyl application. She is currently in SNF at [place] to provide better offloading to help heal the pressure ulcer. No increase in drainage or pain per the patient's daughter in law. - Physical Exam Vital Signs Temp Pulse Resp BP 97.7 F L 85 16 145/61 H 02/26/18 14:15 02/26/18 14:15 02/26/18 14:15 02/26/18 14:15 General: Alert, Cooperative, No apparent distress HEENT: Atraumatic, Normocephalic Oral: Moist Mucosa Neck: Supple Lungs: Clear to auscultation Cardiovascular: Regular rate, Regular Rhythm Abdomen: Obese Skin: Ulcer/ Wound Wound Measurements and Assessment WC - Nurse 1 - General Ulcer Measurement Start: 02/19/18 13:21 Freq: Status: Active Protocol: Activity Type Activity Date Activity User E-Sign Co-Sign Detail Recorded Client Recorded Date Recorded By Document 02/26/18 14:15 [facility] [id number] 02/26/18 14:19 [facility] 02/26/18 14:15 Wound Center Nurse 1 [Ulcer Assessment] #2- RT UPPER BUTTOCK STAGE 3 PRESSURE ULCER -Combined with other wound No -Current Size (cm) - Length 0.7 -Current Size (cm) - Width 0.4 -Current Size (cm) - Depth 1.0 -Total Square Cm 0.28 -Date of Last Picture (Recall this 02/26/18 field) -Photo Taken Yes -Epithelialization None Present -Tunneling No -Undermining/Tunneling No -Circular Undermining No -Exudate Amt None Present (0 %) -Wound Margin Distinct, Outline Attached -Granulation Amt Small (1-33%) -Granulation Quality [place] -Slough/Fibrin Yes -Necrosis Amt Medium (34-66%) -Necrotic Tissue Type Adherent Slough -Texture ([place]-wound Skin Appearance) Scarring -Moisture ([place]-wound Skin Appearance Dry/Scaly ) -Color ([place]-wound Skin Appearance) Erythema -Temperature ([place]-wound Skin No Abnormality Appearance) (Pt Warm) -Tenderness on Palpation ([place]-wound Yes Skin Appearance) -Ulcer Cleansing Rinsed/ Irrigated with Saline -Foul Odor after Cleansing No -Anesthetic Used 5% Lidocaine Gel WC - Nurse 2 - General Ulcer CM Notes Start: 02/19/18 13:21 Freq: Status: Active Protocol: Activity Type Activity Date Activity User E-Sign Co-Sign Detail Recorded Client Recorded Date Recorded By Document 02/26/18 14:52 [id number] 02/26/18 15:02 02/26/18 14:52 Wound Center Nurse 2 [Procedure/Treatment] -Time 14:53 -Correct Patient Yes -Correct Side, Site, Position Yes -Correct Procedure Yes -Procedure Performed Yes -Type of Procedure Debridement -Clinical Debridement Subcutaneous -Post Debridement Size (cm) - Length 0.8 -Post Debridement Size (cm) - Width 0.9 -Post Debridement Size (cm) - Depth 1.5 -Total Square Cm 0.72 -Wound/Ulcer Outcome Not Healed -Ulcer Cleansing Rinsed/ Irrigated with Saline -Foul Odor after Cleansing No -Bioengineered Tissue No -Topical Lidocaine (%) 5 -Bleeding Controlled with Pressure -Other undermining @3- 9 (0.9cm) -Treatment Response Procedure Tolerated Well [See Physician Procedure note for Specifics] Pain Scale: 0-10 Numeric [Pain] -Is Patient Pain Free? Yes Psych/Mental Status: Normal Affect, Appropriate Debridement Note Post-Debridement Measurements/Treatment WC - Nurse 2 - General Ulcer CM Notes Start: 02/19/18 13:21 Freq: Status: Active Protocol: Activity Type Activity Date Activity User E-Sign Co-Sign Detail Recorded Client Recorded Date Recorded By Document 02/19/18 14:06 [id number] 02/19/18 14:07 Document 02/26/18 14:52 [id number] 02/26/18 15:02 02/19/18 02/26/18 14:06 14:52 Wound Center Nurse 2 #2- RT UPPER BUTTOCK STAGE 3 PRESSURE ULCER -Time 14:06 14:53 -Correct Patient Yes Yes -Correct Side, Site, Position Yes Yes -Correct Procedure Yes Yes -Procedure Performed Yes Yes -Type of Procedure Debridement Debridement -Clinical Debridement Subcutaneous Subcutaneous -Post Debridement Size (cm) - Length 1.0 0.8 -Post Debridement Size (cm) - Width 0.8 0.9 -Post Debridement Size (cm) - Depth 1.8 1.5 -Total Square Cm 0.80 0.72 -Wound/Ulcer Outcome Not Healed Not Healed -Ulcer Cleansing Rinsed/ Rinsed/ Irrigated with Irrigated with Saline Saline -Foul Odor after Cleansing No No -Bioengineered Tissue No No -Topical Lidocaine (%) 5 5 -Bleeding Controlled with Pressure Pressure -Other undermining @3- 9 (0.9cm) -Treatment Response Procedure Procedure Tolerated Well Tolerated Well Pain Scale: 0-10 Numeric Is Patient Pain Free? Yes Yes Wound debrided: right upper buttock stage III pressure ulcer Laterality: Right Wound Grade/Stage: Stage III Type of Debridement: Excisional debridement Anesthesia Used: 4% Lidocaine Solution, 5% Lidocaine Gel Depth: Down to and including healthy tissue, in the subcutaneous layer Percentage of wound debrided: 100 Instrument Used: 5mm curette, #15 blade, Forceps Tissue Removed: yellow slough, devitalized tissue Severity: Fat Layer Exposed Amount of bleeding with debridement: Mild Bleeding Controlled with: Compression and gauze Patient tolerated procedure well Assessment/Plan Active Problems Debility (Chronic) Dementia (Chronic) Immobility (Chronic) Diabetes (Chronic) Incontinence of urine (Chronic) Stage III pressure ulcer of sacral region (Chronic) Assessment: This is an 82-year-old female who presents with evidence of pressure phenomenon in the buttocks. There is a stage III pressure ulceration on the right upper buttock. There is evidence of fullness in the left upper buttock, though no breach of skin integrity. There are also some early skin changes in the lower buttocks, also suggesting pressure phenomenon. Plan: The pressure ulcer is improved slightly compared to last week but still has slough present. Will have them continue to use Santyl to the wound with optifoam or equivalent. This will be changed everyday and as needed for soiling. Continue to use OptiFoam or equivalent on both areas on the upper buttocks to minimize pressure and shear forces. Offloading measures encouraged with frequent position changes every 2 hours around the clock. These have been discussed with the patient and with her [id number]-dx-han, who is at the bedside. The fswmdfak-cb-rby is a nurse, and appears to understand the recommendations. Patient is to continue using her gel cushion on her wheelchair. Frequent repositioning has been recommended. Labs reviewed and WNL. Good nutrition has been recommended, with the use of nutritional supplements such as Glucerna. Optimization of the patient's glycemic status has been also recommended. F/U in 2 weeks.
--- NOTE | 2018-02-26 19:25 | PN.PCM_ITS ---
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: unspecified regional intermodal truck driver insulin use status Code(s): E11.9 - Type 2 diabetes mellitus without complications (5) Incontinence of urine Status: Chronic Current Visit: Yes Qualifiers: Urinary Incontinence type: urinary incontinence without sensory awareness Qualified Code(s): N39.42 - Incontinence without sensory awareness Code(s): R32 - Unspecified urinary incontinence (6) Stage III pressure ulcer of sacral region Status: Chronic Current Visit: Yes Code(s): L89.153 - Pressure ulcer of sacral region, stage 3 Type of Wound Date of Service: 02/26/18 Chief Complaint: Stage II pressure ulceration of the right upper buttock History of Wound: This is an 82-year-old female who is debilitated, and suffers from dementia. She lives with her son and [id number]-rkp. Her daughter-in- law is a nurse. Patient presents with a stage II pressure ulceration of the right upper buttock, which is said to have been present for approximately 1 month. Additionally, there is a fullness in the left upper buttock, with overlying skin changes, though no breach in skin integrity. There are also signs of pressure phenomenon on each of the lower buttocks. The patient sleeps on a regular mattress. She has a gel cushion for her wheelchair. She is largely immobile, though walks short distances with the aid of a walker. The patient's appetite is said to be good. The patient has recently completed courses of Keflex and Cefdinir orally. She was seen by Dr. English last week and Santyl was prescribed for treatment. Her daughter in law has been doing this daily without complication. They have been working on offloading but bedtime is difficult. A low air loss mattress was ordered but they have not heard back from insurance at this time. Progress of Wound: Ricardo is here today with her daughter in law and has been tolerating Santyl application. She is currently in SNF at [place] to provide better offloading to help heal the pressure ulcer. No increase in drainage or pain per the patient's daughter in law. - Physical Exam Vital Signs Temp Pulse Resp BP 97.7 F L 85 16 145/61 H 02/26/18 14:15 02/26/18 14:15 02/26/18 14:15 02/26/18 14:15 General: Alert, Cooperative, No apparent distress HEENT: Atraumatic, Normocephalic Oral: Moist Mucosa Neck: Supple Lungs: Clear to auscultation Cardiovascular: Regular rate, Regular Rhythm Abdomen: Obese Skin: Ulcer/ Wound Wound Measurements and Assessment WC - Nurse 1 - General Ulcer Measurement Start: 02/19/18 13:21 Freq: Status: Active Protocol: Activity Type Activity Date Activity User E-Sign Co-Sign Detail Recorded Client Recorded Date Recorded By Document 02/26/18 14:15 [facility] [id number] 02/26/18 14:19 [facility] 02/26/18 14:15 Wound Center Nurse 1 [Ulcer Assessment] #2- RT UPPER BUTTOCK STAGE 3 PRESSURE ULCER -Combined with other wound No -Current Size (cm) - Length 0.7 -Current Size (cm) - Width 0.4 -Current Size (cm) - Depth 1.0 -Total Square Cm 0.28 -Date of Last Picture (Recall this 02/26/18 field) -Photo Taken Yes -Epithelialization None Present -Tunneling No -Undermining/Tunneling No -Circular Undermining No -Exudate Amt None Present (0 %) -Wound Margin Distinct, Outline Attached -Granulation Amt Small (1-33%) -Granulation Quality [place] -Slough/Fibrin Yes -Necrosis Amt Medium (34-66%) -Necrotic Tissue Type Adherent Slough -Texture ([place]-wound Skin Appearance) Scarring -Moisture ([place]-wound Skin Appearance Dry/Scaly ) -Color ([place]-wound Skin Appearance) Erythema -Temperature ([place]-wound Skin No Abnormality Appearance) (Pt Warm) -Tenderness on Palpation ([place]-wound Yes Skin Appearance) -Ulcer Cleansing Rinsed/ Irrigated with Saline -Foul Odor after Cleansing No -Anesthetic Used 5% Lidocaine Gel WC - Nurse 2 - General Ulcer CM Notes Start: 02/19/18 13:21 Freq: Status: Active Protocol: Activity Type Activity Date Activity User E-Sign Co-Sign Detail Recorded Client Recorded Date Recorded By Document 02/26/18 14:52 [id number] 02/26/18 15:02 02/26/18 14:52 Wound Center Nurse 2 [Procedure/Treatment] -Time 14:53 -Correct Patient Yes -Correct Side, Site, Position Yes -Correct Procedure Yes -Procedure Performed Yes -Type of Procedure Debridement -Clinical Debridement Subcutaneous -Post Debridement Size (cm) - Length 0.8 -Post Debridement Size (cm) - Width 0.9 -Post Debridement Size (cm) - Depth 1.5 -Total Square Cm 0.72 -Wound/Ulcer Outcome Not Healed -Ulcer Cleansing Rinsed/ Irrigated with Saline -Foul Odor after Cleansing No -Bioengineered Tissue No -Topical Lidocaine (%) 5 -Bleeding Controlled with Pressure -Other undermining @3- 9 (0.9cm) -Treatment Response Procedure Tolerated Well [See Physician Procedure note for Specifics] Pain Scale: 0-10 Numeric [Pain] -Is Patient Pain Free? Yes Psych/Mental Status: Normal Affect, Appropriate Debridement Note Post-Debridement Measurements/Treatment WC - Nurse 2 - General Ulcer CM Notes Start: 02/19/18 13:21 Freq: Status: Active Protocol: Activity Type Activity Date Activity User E-Sign Co-Sign Detail Recorded Client Recorded Date Recorded By Document 02/19/18 14:06 [id number] 02/19/18 14:07 Document 02/26/18 14:52 [id number] 02/26/18 15:02 02/19/18 02/26/18 14:06 14:52 Wound Center Nurse 2 #2- RT UPPER BUTTOCK STAGE 3 PRESSURE ULCER -Time 14:06 14:53 -Correct Patient Yes Yes -Correct Side, Site, Position Yes Yes -Correct Procedure Yes Yes -Procedure Performed Yes Yes -Type of Procedure Debridement Debridement -Clinical Debridement Subcutaneous Subcutaneous -Post Debridement Size (cm) - Length 1.0 0.8 -Post Debridement Size (cm) - Width 0.8 0.9 -Post Debridement Size (cm) - Depth 1.8 1.5 -Total Square Cm 0.80 0.72 -Wound/Ulcer Outcome Not Healed Not Healed -Ulcer Cleansing Rinsed/ Rinsed/ Irrigated with Irrigated with Saline Saline -Foul Odor after Cleansing No No -Bioengineered Tissue No No -Topical Lidocaine (%) 5 5 -Bleeding Controlled with Pressure Pressure -Other undermining @3- 9 (0.9cm) -Treatment Response Procedure Procedure Tolerated Well Tolerated Well Pain Scale: 0-10 Numeric Is Patient Pain Free? Yes Yes Wound debrided: right upper buttock stage III pressure ulcer Laterality: Right Wound Grade/Stage: Stage III Type of Debridement: Excisional debridement Anesthesia Used: 4% Lidocaine Solution, 5% Lidocaine Gel Depth: Down to and including healthy tissue, in the subcutaneous layer Percentage of wound debrided: 100 Instrument Used: 5mm curette, #15 blade, Forceps Tissue Removed: yellow slough, devitalized tissue Severity: Fat Layer Exposed Amount of bleeding with debridement: Mild Bleeding Controlled with: Compression and gauze Patient tolerated procedure well Assessment/Plan Active Problems Debility (Chronic) Dementia (Chronic) Immobility (Chronic) Diabetes (Chronic) Incontinence of urine (Chronic) Stage III pressure ulcer of sacral region (Chronic) Assessment: This is an 82-year-old female who presents with evidence of pressure phenomenon in the buttocks. There is a stage III pressure ulceration on the right upper buttock. There is evidence of fullness in the left upper buttock, though no breach of skin integrity. There are also some early skin changes in the lower buttocks, also suggesting pressure phenomenon. Plan: The pressure ulcer is improved slightly compared to last week but still has slough present. Will have them continue to use Santyl to the wound with optifoam or equivalent. This will be changed everyday and as needed for soiling. Continue to use OptiFoam or equivalent on both areas on the upper buttocks to minimize pressure and shear forces. Offloading measures encouraged with frequent position changes every 2 hours around the clock. These have been discussed with the patient and with her [id number]-fh-dgx, who is at the bedside. The ormfxpfw-ux-abn is a nurse, and appears to understand the recommendations. Patient is to continue using her gel cushion on her wheelchair. Frequent repositioning has been recommended. Labs reviewed and WNL. Good nutrition has been recommended, with the use of nutritional supplements such as Glucerna. Optimization of the patient's glycemic status has been also recommended. F/U in 2 weeks.
[2018-03-04 13:22] VITALS: BP 130/46; PULSE 84; RESP 20; TEMP 36.6
--- NOTE | 2018-03-04 19:12 | PCM.WC.PN ---
(1) Pressure ulcer of right buttock, stage 2 Status: Chronic Current Visit: Yes Code(s): L89.312 - Pressure ulcer of right buttock, stage 2 (2) Debility Status: Chronic Current Visit: Yes Code(s): R53.81 - Other malaise (3) Dementia Status: Chronic Current Visit: Yes Qualifiers: Dementia type: Alzheimer's disease Code(s): F03.90 - Unspecified dementia without behavioral disturbance (4) Immobility Status: Chronic Current Visit: Yes Code(s): Z74.09 - Other reduced mobility (5) Diabetes Status: Chronic Current Visit: Yes Qualifiers: Diabetes mellitus type: type 2 Diabetes mellitus long-term insulin use: unspecified 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 insulin use status Code(s): E11.9 - Type 2 diabetes mellitus without complications (6) Hypertension Status: Chronic Current Visit: No Code(s): I10 - Essential (primary) hypertension (7) Hyperlipidemia Status: Chronic Current Visit: No Code(s): E78.5 - Hyperlipidemia, unspecified (8) Hypothyroidism Status: Chronic Current Visit: No Code(s): E03.9 - Hypothyroidism, unspecified (9) Incontinence of urine Status: Chronic Current Visit: Yes Qualifiers: Urinary Incontinence type: urinary incontinence without sensory awareness Qualified Code(s): N39.42 - Incontinence without sensory awareness Code(s): R32 - Unspecified urinary incontinence Type of Wound Date of Service: 03/04/18 Chief Complaint: Stage II pressure ulceration of the right upper buttock History of Wound: This is an 82-year-old female who is debilitated, and suffers from dementia. She lives with her son and kcnanijz-iv-cfo. Her mozgfysy-id-zxy is a nurse. Patient presents with a stage II pressure ulceration of the right upper buttock, which is said to have been present for approximately 1 month. Additionally, there is a fullness in the left upper buttock, with overlying skin changes, though no breach in skin integrity. There are also signs of pressure phenomenon on each of the lower buttocks. The patient sleeps on a regular mattress. She has a gel cushion for her wheelchair. She is largely immobile, though walks short distances with the aid of a walker. The patient's appetite is said to be good. The patient has recently completed courses of Keflex and Cefdinir orally. She was seen by Dr. English last week and Santyl was prescribed for treatment. Her daughter in law has been doing this daily without complication. They have been working on offloading but bedtime is difficult. A low air loss mattress was ordered but they have not heard back from insurance at this time. Progress of Wound: Courtesy visit for Dr. Montenegro, Pt is currently in SNF at [facility] to provide better offloading to help heal the pressure ulcer, however, the clinical staff has not been using santyl and has been packing with iodoform gauze. No increase in drainage or pain per the patient's daughter in law. Her most recent wound cultures returned and showed a staph epidermidis infection, therefore patient was started today on doxycycline. - Physical Exam Vital Signs Temp Pulse Resp BP 97.8 F 84 20 H 130/46 H 03/04/18 13:22 03/04/18 13:22 03/04/18 13:22 03/04/18 13:22 General: Alert, Confused HEENT: Atraumatic Cardiovascular: Regular rate Skin: Ulcer/ Wound - stage 2 pressure ulcer right buttock with adherhant slough, debridement limited d/t patients pain with debridement, no purulent drainage or foul smell. Wound Measurements and Assessment WC - Nurse 1 - General Ulcer Measurement Start: 02/19/18 13:21 Freq: Status: Active Protocol: Activity Type Activity Date Activity User E-Sign Co-Sign Detail Recorded Client Recorded Date Recorded By Document 03/04/18 13:22 DL [id number] 03/04/18 13:24 DL 03/04/18 13:22 Wound Center Nurse 1 [Ulcer Assessment] #2- RT UPPER BUTTOCK STAGE 3 PRESSURE ULCER -Current Size (cm) - Length 0.7 -Current Size (cm) - Width 0.8 -Current Size (cm) - Depth 1.8 -Total Square Cm 0.56 -Photo Taken No -Exudate Amt Small (1-33%) -Exudate Type Serosanguineous -Wound Margin Distinct, Outline Attached -Granulation Amt Medium (34-66%) -Granulation Quality Stewart -Necrosis Amt Medium (34-66%) -Necrotic Tissue Type Adherent Slough -Structure Exposed N/A -Texture (Catalina-wound Skin Appearance) Scarring -Moisture (Catalina-wound Skin Appearance No Abnormality ) -Color (Catalina-wound Skin Appearance) No Abnormality -Temperature (Catalina-wound Skin No Abnormality Appearance) (Pt Warm) -Ulcer Cleansing Rinsed/ Irrigated with Saline -Foul Odor after Cleansing No -Anesthetic Used 4% Lidocaine Solution - Nurse 2 - General Ulcer CM Notes Start: 02/19/18 13:21 Freq: Status: Active Protocol: Activity Type Activity Date Activity User E-Sign Co-Sign Detail Recorded Client Recorded Date Recorded By Document 03/04/18 13:58 [id number] 03/04/18 14:01 DV 03/04/18 13:58 Wound Center Nurse 2 [Procedure/Treatment] -Time 14:00 -Correct Patient Yes -Correct Side, Site, Position Yes -Correct Procedure Yes -Procedure Performed Yes -Type of Procedure Debridement -Clinical Debridement Subcutaneous -Post Debridement Size (cm) - Length 0.9 -Post Debridement Size (cm) - Width 0.9 -Post Debridement Size (cm) - Depth 1.9 -Total Square Cm 0.81 -Wound/Ulcer Outcome Not Healed -Ulcer Cleansing Rinsed/ Irrigated with Saline -Foul Odor after Cleansing No -Bioengineered Tissue No -Bleeding Controlled with Pressure -Treatment Response Procedure Tolerated Well [See Physician Procedure note for Specifics] Neurological: Neuro grossly intact Psych/Mental Status: Normal Affect, Appropriate Debridement Note Post-Debridement Measurements/Treatment - Nurse 2 - General Ulcer CM Notes Start: 02/19/18 13:21 Freq: Status: Active Protocol: Activity Type Activity Date Activity User E-Sign Co-Sign Detail Recorded Client Recorded Date Recorded By Document 02/19/18 14:06 [id number] 02/19/18 14:07 Document 02/26/18 14:52 [id number] 02/26/18 15:02 Document 03/04/18 13:58 [id number] 03/04/18 14:01 DV 02/19/18 02/26/18 03/04/18 14:06 14:52 13:58 Wound Center Nurse 2 #2- RT UPPER BUTTOCK STAGE 3 PRESSURE ULCER -Time 14:06 14:53 14:00 -Correct Patient Yes Yes Yes -Correct Side, Site, Position Yes Yes Yes -Correct Procedure Yes Yes Yes -Procedure Performed Yes Yes Yes -Type of Procedure Debridement Debridement Debridement -Clinical Debridement Subcutaneous Subcutaneous Subcutaneous -Post Debridement Size (cm) - Length 1.0 0.8 0.9 -Post Debridement Size (cm) - Width 0.8 0.9 0.9 -Post Debridement Size (cm) - Depth 1.8 1.5 1.9 -Total Square Cm 0.80 0.72 0.81 -Wound/Ulcer Outcome Not Healed Not Healed Not Healed -Ulcer Cleansing Rinsed/ Rinsed/ Rinsed/ Irrigated with Irrigated with Irrigated with Saline Saline Saline -Foul Odor after Cleansing No No No -Bioengineered Tissue No No No -Topical Lidocaine (%) 5 5 -Bleeding Controlled with Pressure Pressure Pressure -Other undermining @3- 9 (0.9cm) -Treatment Response Procedure Procedure Procedure Tolerated Well Tolerated Well Tolerated Well Pain Scale: 0-10 Numeric Is Patient Pain Free? Yes Yes Wound debrided: Stage II right buttock ulcer Type of Debridement: Excisional debridement Anesthesia Used: 5% Lidocaine Gel Depth: in the subcutaneous layer Percentage of wound debrided: 100 Instrument Used: 3mm curette Tissue Removed: Slough and devitalized tissue Severity: Fat Layer Exposed Amount of bleeding with debridement: Mild Bleeding Controlled with: Pressure Patient tolerated procedure well Assessment/Plan Active Problems Pressure ulcer of right buttock, stage 2 (Chronic) Debility (Chronic) Dementia (Chronic) Immobility (Chronic) Diabetes (Chronic) Incontinence of urine (Chronic) 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 Will have them continue to use Santyl to the wound with optifoam or equivalent. This will be changed everyday and as needed for soiling. Continue to use OptiFoam or equivalent on both areas on the upper buttocks to minimize pressure and shear forces. Offloading measures encouraged with frequent position changes every 2 hours around the clock. These have been discussed with the patient and with her [id number]-hrq, who is at the bedside. The zrldorvr-rg-jbn is a nurse, and appears to understand the recommendations. Patient is to continue using her gel cushion on her wheelchair. Frequent repositioning has been recommended. Labs reviewed and WNL. Recent culture reviewed which showed staph epidermidis and patient was started on 7 days of doxycycline per culture sensitivities. Good nutrition has been recommended, with the use of nutritional supplements such as Glucerna. Optimization of the patient's glycemic status has been also recommended. F/U in 1 week. Code Visit 111xxx-113xx: [id number] Juliette subq tissue 20 sq cm/<
--- NOTE | 2018-03-05 09:17 | PN.PCM_ITS ---
(1) Pressure ulcer of right buttock, stage 2 Status: Chronic Current Visit: Yes Code(s): L89.312 - Pressure ulcer of right buttock, stage 2 (2) Debility Status: Chronic Current Visit: Yes Code(s): R53.81 - Other malaise (3) Dementia Status: Chronic Current Visit: Yes Qualifiers: Dementia type: Alzheimer's disease Code(s): F03.90 - Unspecified dementia without behavioral disturbance (4) Immobility Status: Chronic Current Visit: Yes Code(s): Z74.09 - Other reduced mobility (5) Diabetes Status: Chronic Current Visit: Yes Qualifiers: Diabetes mellitus type: type 2 Diabetes mellitus alf insulin use: unspecified oil heaterman insulin use status Code(s): E11.9 - Type 2 diabetes mellitus without complications (6) Hypertension Status: Chronic Current Visit: No Code(s): I10 - Essential (primary) hypertension (7) Hyperlipidemia Status: Chronic Current Visit: No Code(s): E78.5 - Hyperlipidemia, unspecified (8) Hypothyroidism Status: Chronic Current Visit: No Code(s): E03.9 - Hypothyroidism, unspecified (9) Incontinence of urine Status: Chronic Current Visit: Yes Qualifiers: Urinary Incontinence type: urinary incontinence without sensory awareness Qualified Code(s): N39.42 - Incontinence without sensory awareness Code(s): R32 - Unspecified urinary incontinence Type of Wound Date of Service: 03/04/18 Chief Complaint: Stage II pressure ulceration of the right upper buttock History of Wound: This is an 82-year-old female who is debilitated, and suffers from dementia. She lives with her son and htdpmefp-di-onz. Her daughter-in- law is a nurse. Patient presents with a stage II pressure ulceration of the right upper buttock, which is said to have been present for approximately 1 month. Additionally, there is a fullness in the left upper buttock, with overlying skin changes, though no breach in skin integrity. There are also signs of pressure phenomenon on each of the lower buttocks. The patient sleeps on a regular mattress. She has a gel cushion for her wheelchair. She is largely immobile, though walks short distances with the aid of a walker. The patient's appetite is said to be good. The patient has recently completed courses of Keflex and Cefdinir orally. She was seen by Dr. English last week and Santyl was prescribed for treatment. Her daughter in law has been doing this daily without complication. They have been working on offloading but bedtime is difficult. A low air loss mattress was ordered but they have not heard back from insurance at this time. Progress of Wound: Courtesy visit for Dr. Montenegro, Pt is currently in SNF at [facility] to provide better offloading to help heal the pressure ulcer, however, the clinical staff has not been using santyl and has been packing with iodoform gauze. No increase in drainage or pain per the patient's daughter in law. Her most recent wound cultures returned and showed a staph epidermidis infection, therefore patient was started today on doxycycline. - Physical Exam Vital Signs Temp Pulse Resp BP 97.8 F 84 20 H 130/46 H 03/04/18 13:22 03/04/18 13:22 03/04/18 13:22 03/04/18 13:22 General: Alert, Confused HEENT: Atraumatic Cardiovascular: Regular rate Skin: Ulcer/ Wound - stage 2 pressure ulcer right buttock with adherhant slough , debridement limited d/t patients pain with debridement, no purulent drainage or foul smell. Wound Measurements and Assessment WC - Nurse 1 - General Ulcer Measurement Start: 02/19/18 13:21 Freq: Status: Active Protocol: Activity Type Activity Date Activity User E-Sign Co-Sign Detail Recorded Client Recorded Date Recorded By Document 03/04/18 13:22 DL [id number] 03/04/18 13:24 DL 03/04/18 13:22 Wound Center Nurse 1 [Ulcer Assessment] #2- RT UPPER BUTTOCK STAGE 3 PRESSURE ULCER -Current Size (cm) - Length 0.7 -Current Size (cm) - Width 0.8 -Current Size (cm) - Depth 1.8 -Total Square Cm 0.56 -Photo Taken No -Exudate Amt Small (1-33%) -Exudate Type Serosanguineous -Wound Margin Distinct, Outline Attached -Granulation Amt Medium (34-66%) -Granulation Quality Nucla -Necrosis Amt Medium (34-66%) -Necrotic Tissue Type Adherent Slough -Structure Exposed N/A -Texture (Catalina-wound Skin Appearance) Scarring -Moisture (Catalina-wound Skin Appearance No Abnormality ) -Color (Catalina-wound Skin Appearance) No Abnormality -Temperature (Catalina-wound Skin No Abnormality Appearance) (Pt Warm) -Ulcer Cleansing Rinsed/ Irrigated with Saline -Foul Odor after Cleansing No -Anesthetic Used 4% Lidocaine Solution - Nurse 2 - General Ulcer CM Notes Start: 02/19/18 13:21 Freq: Status: Active Protocol: Activity Type Activity Date Activity User E-Sign Co-Sign Detail Recorded Client Recorded Date Recorded By Document 03/04/18 13:58 [id number] 03/04/18 14:01 DV 03/04/18 13:58 Wound Center Nurse 2 [Procedure/Treatment] -Time 14:00 -Correct Patient Yes -Correct Side, Site, Position Yes -Correct Procedure Yes -Procedure Performed Yes -Type of Procedure Debridement -Clinical Debridement Subcutaneous -Post Debridement Size (cm) - Length 0.9 -Post Debridement Size (cm) - Width 0.9 -Post Debridement Size (cm) - Depth 1.9 -Total Square Cm 0.81 -Wound/Ulcer Outcome Not Healed -Ulcer Cleansing Rinsed/ Irrigated with Saline -Foul Odor after Cleansing No -Bioengineered Tissue No -Bleeding Controlled with Pressure -Treatment Response Procedure Tolerated Well [See Physician Procedure note for Specifics] Neurological: Neuro grossly intact Psych/Mental Status: Normal Affect, Appropriate Debridement Note Post-Debridement Measurements/Treatment - Nurse 2 - General Ulcer CM Notes Start: 02/19/18 13:21 Freq: Status: Active Protocol: Activity Type Activity Date Activity User E-Sign Co-Sign Detail Recorded Client Recorded Date Recorded By Document 02/19/18 14:06 [id number] 02/19/18 14:07 Document 02/26/18 14:52 [id number] 02/26/18 15:02 Document 03/04/18 13:58 [id number] 03/04/18 14:01 DV 02/19/18 02/26/18 03/04/18 14:06 14:52 13:58 Wound Center Nurse 2 #2- RT UPPER BUTTOCK STAGE 3 PRESSURE ULCER -Time 14:06 14:53 14:00 -Correct Patient Yes Yes Yes -Correct Side, Site, Position Yes Yes Yes -Correct Procedure Yes Yes Yes -Procedure Performed Yes Yes Yes -Type of Procedure Debridement Debridement Debridement -Clinical Debridement Subcutaneous Subcutaneous Subcutaneous -Post Debridement Size (cm) - Length 1.0 0.8 0.9 -Post Debridement Size (cm) - Width 0.8 0.9 0.9 -Post Debridement Size (cm) - Depth 1.8 1.5 1.9 -Total Square Cm 0.80 0.72 0.81 -Wound/Ulcer Outcome Not Healed Not Healed Not Healed -Ulcer Cleansing Rinsed/ Rinsed/ Rinsed/ Irrigated with Irrigated with Irrigated with Saline Saline Saline -Foul Odor after Cleansing No No No -Bioengineered Tissue No No No -Topical Lidocaine (%) 5 5 -Bleeding Controlled with Pressure Pressure Pressure -Other undermining @3- 9 (0.9cm) -Treatment Response Procedure Procedure Procedure Tolerated Well Tolerated Well Tolerated Well Pain Scale: 0-10 Numeric Is Patient Pain Free? Yes Yes Wound debrided: Stage II right buttock ulcer Type of Debridement: Excisional debridement Anesthesia Used: 5% Lidocaine Gel Depth: in the subcutaneous layer Percentage of wound debrided: 100 Instrument Used: 3mm curette Tissue Removed: Slough and devitalized tissue Severity: Fat Layer Exposed Amount of bleeding with debridement: Mild Bleeding Controlled with: Pressure Patient tolerated procedure well Assessment/Plan Active Problems Pressure ulcer of right buttock, stage 2 (Chronic) Debility (Chronic) Dementia (Chronic) Immobility (Chronic) Diabetes (Chronic) Incontinence of urine (Chronic) 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 Will have them continue to use Santyl to the wound with optifoam or equivalent. This will be changed everyday and as needed for soiling. Continue to use OptiFoam or equivalent on both areas on the upper buttocks to minimize pressure and shear forces. Offloading measures encouraged with frequent position changes every 2 hours around the clock. These have been discussed with the patient and with her fnavgqlp-dp-kbg, who is at the bedside. The ueakxhpu-of-tgh is a nurse, and appears to understand the recommendations. Patient is to continue using her gel cushion on her wheelchair. Frequent repositioning has been recommended. Labs reviewed and WNL. Recent culture reviewed which showed staph epidermidis and patient was started on 7 days of doxycycline per culture sensitivities. Good nutrition has been recommended, with the use of nutritional supplements such as Glucerna. Optimization of the patient's glycemic status has been also recommended. F/U in 1 week. Code Visit 111xxx-113xx: [id number] Juliette subq tissue 20 sq cm/<
[2018-03-11 13:50] VITALS: BP 162/54; PULSE 87; RESP 18; TEMP 36.2
--- NOTE | 2018-03-11 20:52 | PCM.WC.PN ---
(1) Pressure ulcer of right buttock, stage 3 Status: Acute Code(s): L89.313 - Pressure ulcer of right buttock, stage 3 (2) Debility Status: Chronic Code(s): R53.81 - Other malaise (3) Dementia Status: Chronic Qualifiers: Dementia type: Alzheimer's disease Code(s): F03.90 - Unspecified dementia without behavioral disturbance (4) Immobility Status: Chronic Code(s): Z74.09 - Other reduced mobility (5) Diabetes Status: Chronic Qualifiers: Diabetes mellitus type: type 2 Diabetes mellitus [facility] insulin use: unspecified [facility] use status Code(s): E11.9 - Type 2 diabetes mellitus without complications (6) Hypertension Status: Chronic Code(s): I10 - Essential (primary) hypertension (7) Hyperlipidemia Status: Chronic Code(s): E78.5 - Hyperlipidemia, unspecified (8) Hypothyroidism Status: Chronic Code(s): E03.9 - Hypothyroidism, unspecified (9) Incontinence of urine Status: Chronic Qualifiers: Urinary Incontinence type: urinary incontinence without sensory awareness Qualified Code(s): N39.42 - Incontinence without sensory awareness Code(s): R32 - Unspecified urinary incontinence Type of Wound Date of Service: 03/11/18 Chief Complaint: Stage III pressure ulceration of the right upper buttock History of Wound: This is an 82-year-old female who is debilitated, and suffers from dementia. She lives with her son and tssdcxgr-pw-ast. Her kothxdwv-sh-lbm is a nurse. Patient presents with a stage II pressure ulceration of the right upper buttock, which is said to have been present for approximately 1 month. Additionally, there is a fullness in the left upper buttock, with overlying skin changes, though no breach in skin integrity. There are also signs of pressure phenomenon on each of the lower buttocks. The patient sleeps on a regular mattress. She has a gel cushion for her wheelchair. She is largely immobile, though walks short distances with the aid of a walker. The patient's appetite is said to be good. The patient has recently completed courses of Keflex and Cefdinir orally. She was seen by Dr. English last week and Santyl was prescribed for treatment. Her daughter in law has been doing this daily without complication. They have been working on offloading but bedtime is difficult. A low air loss mattress was ordered but they have not heard back from insurance at this time. Progress of Wound: Courtesy visit for Dr. Montenegro, depth of ulcer slightly decreased, Pt is currently in SNF at [place] to provide better offloading to help heal the pressure ulcer, has been compliant with santyl and tolerating the doxycycline for the staph epidermidis infection. - Physical Exam Vital Signs Temp Pulse Resp BP 97.1 F L 87 18 162/54 H 03/11/18 13:50 03/11/18 13:50 03/11/18 13:50 03/11/18 13:50 General: Alert, Oriented x3, Cooperative, No apparent distress HEENT: Atraumatic Cardiovascular: Regular rate Skin: Ulcer/ Wound - stage 3 pressure ulcer with adherant slough right buttock, no signs of infection at this time, depth has slightly decreased Neurological: Neuro grossly intact Psych/Mental Status: Normal Affect, Appropriate, Alert and oriented to time, place, person, mood and affect Debridement Note Post-Debridement Measurements/Treatment WC - Nurse 2 - General Ulcer CM Notes Start: 02/19/18 13:21 Freq: Status: Active Protocol: Activity Type Activity Date Activity User E-Sign Co-Sign Detail Recorded Client Recorded Date Recorded By Document 02/19/18 14:06 [id number] 02/19/18 14:07 TM Document 02/26/18 14:52 [id number] 02/26/18 15:02 TM Document 03/04/18 13:58 DV [id number] 03/04/18 14:01 DV Document 03/11/18 14:08 [id number] 03/11/18 14:09 02/19/18 02/26/18 03/04/18 14:06 14:52 13:58 Wound Center Nurse 2 #2- RT UPPER BUTTOCK STAGE 3 PRESSURE ULCER -Time 14:06 14:53 14:00 -Correct Patient Yes Yes Yes -Correct Side, Site, Position Yes Yes Yes -Correct Procedure Yes Yes Yes -Procedure Performed Yes Yes Yes -Type of Procedure Debridement Debridement Debridement -Clinical Debridement Subcutaneous Subcutaneous Subcutaneous -Post Debridement Size (cm) - Length 1.0 0.8 0.9 -Post Debridement Size (cm) - Width 0.8 0.9 0.9 -Post Debridement Size (cm) - Depth 1.8 1.5 1.9 -Total Square Cm 0.80 0.72 0.81 -Wound/Ulcer Outcome Not Healed Not Healed Not Healed -Ulcer Cleansing Rinsed/ Rinsed/ Rinsed/ Irrigated with Irrigated with Irrigated with Saline Saline Saline -Foul Odor after Cleansing No No No -Bioengineered Tissue No No No -Topical Lidocaine (%) 5 5 -Bleeding Controlled with Pressure Pressure Pressure -Other undermining @3- 9 (0.9cm) -Treatment Response Procedure Procedure Procedure Tolerated Well Tolerated Well Tolerated Well Pain Scale: 0-10 Numeric Is Patient Pain Free? Yes Yes 03/11/18 14:08 Wound Center Nurse 2 #2- RT UPPER BUTTOCK STAGE 3 PRESSURE ULCER -Time 14:09 -Correct Patient Yes -Correct Side, Site, Position Yes -Correct Procedure Yes -Procedure Performed Yes -Type of Procedure Debridement -Clinical Debridement Subcutaneous -Post Debridement Size (cm) - Length 0.6 -Post Debridement Size (cm) - Width 0.9 -Post Debridement Size (cm) - Depth 1.6 -Total Square Cm 0.54 -Wound/Ulcer Outcome Not Healed -Ulcer Cleansing Not Cleansed -Foul Odor after Cleansing No -Bioengineered Tissue No -Topical Lidocaine (%) -Bleeding Controlled with Pressure -Other -Treatment Response Procedure Tolerated Well Pain Scale: 0-10 Numeric Is Patient Pain Free? No Wound debrided: Right stage 3 buttock pressure ulcer Laterality: Right Wound Grade/Stage: stage 3 Type of Debridement: Excisional debridement Anesthesia Used: 4% Lidocaine Solution Depth: in the subcutaneous layer Percentage of wound debrided: 100 Instrument Used: 3mm curette Tissue Removed: slough and devitalized tissue Severity: Fat Layer Exposed Amount of bleeding with debridement: Mild Bleeding Controlled with: Pressure Patient tolerated procedure well Assessment/Plan Assessment: See above diagnoses Plan: Courtesy visit -the pressure ulcer is stable, better debridement today. Will have them discontinue the use of Santyl and apply daily loli to the wound with optifoam or equivalent. This will be changed everyday and as needed for soiling. Offloading measures encouraged with frequent position changes every 2 hours around the clock. These have been discussed with the patient and with her oyhbkwlq-cn-ouc, who is at the bedside. The skkaiyfc-ju-qrp is a nurse, and appears to understand the recommendations. Patient is to continue using her gel cushion on her wheelchair. Frequent repositioning has been recommended. Labs reviewed and WNL. Recent culture reviewed which showed staph epidermidis and patient was started on 7 days of doxycycline per culture sensitivities and tolerated the antibiotic well. Good nutrition has been recommended, with the use of nutritional supplements such as Glucerna. Optimization of the patient's glycemic status has been also recommended. F/U in 1 week. Code Visit 111xxx-113xx: [id number] Juliette subq tissue 20 sq cm/<
--- NOTE | 2018-03-16 09:56 | PN.PCM_ITS ---
(1) Pressure ulcer of right buttock, stage 3 Status: Acute Code(s): L89.313 - Pressure ulcer of right buttock, stage 3 (2) Debility Status: Chronic Code(s): R53.81 - Other malaise (3) Dementia Status: Chronic Qualifiers: Dementia type: Alzheimer's disease Code(s): F03.90 - Unspecified dementia without behavioral disturbance (4) Immobility Status: Chronic Code(s): Z74.09 - Other reduced mobility (5) Diabetes Status: Chronic Qualifiers: Diabetes mellitus type: type 2 Diabetes mellitus [facility]: [facility] status Code(s): E11.9 - Type 2 diabetes mellitus without complications (6) Hypertension Status: Chronic Code(s): I10 - Essential (primary) hypertension (7) Hyperlipidemia Status: Chronic Code(s): E78.5 - Hyperlipidemia, unspecified (8) Hypothyroidism Status: Chronic Code(s): E03.9 - Hypothyroidism, unspecified (9) Incontinence of urine Status: Chronic Qualifiers: Urinary Incontinence type: urinary incontinence without sensory awareness Qualified Code(s): N39.42 - Incontinence without sensory awareness Code(s): R32 - Unspecified urinary incontinence Type of Wound Date of Service: 03/11/18 Chief Complaint: Stage III pressure ulceration of the right upper buttock History of Wound: This is an 82-year-old female who is debilitated, and suffers from dementia. She lives with her son and qcoersfc-rm-nhu. Her rhqfhtmc-jh-tba is a nurse. Patient presents with a stage II pressure ulceration of the right upper buttock, which is said to have been present for approximately 1 month. Additionally, there is a fullness in the left upper buttock, with overlying skin changes, though no breach in skin integrity. There are also signs of pressure phenomenon on each of the lower buttocks. The patient sleeps on a regular mattress. She has a gel cushion for her wheelchair. She is largely immobile, though walks short distances with the aid of a walker. The patient's appetite is said to be good. The patient has recently completed courses of Keflex and Cefdinir orally. She was seen by Dr. English last week and Santyl was prescribed for treatment. Her daughter in law has been doing this daily without complication. They have been working on offloading but bedtime is difficult. A low air loss mattress was ordered but they have not heard back from insurance at this time. Progress of Wound: Courtesy visit for Dr. Montenegro, depth of ulcer slightly decreased, Pt is currently in SNF at [place] to provide better offloading to help heal the pressure ulcer, has been compliant with santyl and tolerating the doxycycline for the staph epidermidis infection. - Physical Exam Vital Signs Temp Pulse Resp BP 97.1 F L 87 18 162/54 H 03/11/18 13:50 03/11/18 13:50 03/11/18 13:50 03/11/18 13:50 General: Alert, Oriented x3, Cooperative, No apparent distress HEENT: Atraumatic Cardiovascular: Regular rate Skin: Ulcer/ Wound - stage 3 pressure ulcer with adherant slough right buttock, no signs of infection at this time, depth has slightly decreased Neurological: Neuro grossly intact Psych/Mental Status: Normal Affect, Appropriate, Alert and oriented to time, place, person, mood and affect Debridement Note Post-Debridement Measurements/Treatment WC - Nurse 2 - General Ulcer CM Notes Start: 02/19/18 13:21 Freq: Status: Active Protocol: Activity Type Activity Date Activity User E-Sign Co-Sign Detail Recorded Client Recorded Date Recorded By Document 02/19/18 14:06 [id number] 02/19/18 14:07 TM Document 02/26/18 14:52 [id number] 02/26/18 15:02 TM Document 03/04/18 13:58 DV [id number] 03/04/18 14:01 DV Document 03/11/18 14:08 [id number] 03/11/18 14:09 02/19/18 02/26/18 03/04/18 14:06 14:52 13:58 Wound Center Nurse 2 #2- RT UPPER BUTTOCK STAGE 3 PRESSURE ULCER -Time 14:06 14:53 14:00 -Correct Patient Yes Yes Yes -Correct Side, Site, Position Yes Yes Yes -Correct Procedure Yes Yes Yes -Procedure Performed Yes Yes Yes -Type of Procedure Debridement Debridement Debridement -Clinical Debridement Subcutaneous Subcutaneous Subcutaneous -Post Debridement Size (cm) - Length 1.0 0.8 0.9 -Post Debridement Size (cm) - Width 0.8 0.9 0.9 -Post Debridement Size (cm) - Depth 1.8 1.5 1.9 -Total Square Cm 0.80 0.72 0.81 -Wound/Ulcer Outcome Not Healed Not Healed Not Healed -Ulcer Cleansing Rinsed/ Rinsed/ Rinsed/ Irrigated with Irrigated with Irrigated with Saline Saline Saline -Foul Odor after Cleansing No No No -Bioengineered Tissue No No No -Topical Lidocaine (%) 5 5 -Bleeding Controlled with Pressure Pressure Pressure -Other undermining @3- 9 (0.9cm) -Treatment Response Procedure Procedure Procedure Tolerated Well Tolerated Well Tolerated Well Pain Scale: 0-10 Numeric Is Patient Pain Free? Yes Yes 03/11/18 14:08 Wound Center Nurse 2 #2- RT UPPER BUTTOCK STAGE 3 PRESSURE ULCER -Time 14:09 -Correct Patient Yes -Correct Side, Site, Position Yes -Correct Procedure Yes -Procedure Performed Yes -Type of Procedure Debridement -Clinical Debridement Subcutaneous -Post Debridement Size (cm) - Length 0.6 -Post Debridement Size (cm) - Width 0.9 -Post Debridement Size (cm) - Depth 1.6 -Total Square Cm 0.54 -Wound/Ulcer Outcome Not Healed -Ulcer Cleansing Not Cleansed -Foul Odor after Cleansing No -Bioengineered Tissue No -Topical Lidocaine (%) -Bleeding Controlled with Pressure -Other -Treatment Response Procedure Tolerated Well Pain Scale: 0-10 Numeric Is Patient Pain Free? No Wound debrided: Right stage 3 buttock pressure ulcer Laterality: Right Wound Grade/Stage: stage 3 Type of Debridement: Excisional debridement Anesthesia Used: 4% Lidocaine Solution Depth: in the subcutaneous layer Percentage of wound debrided: 100 Instrument Used: 3mm curette Tissue Removed: slough and devitalized tissue Severity: Fat Layer Exposed Amount of bleeding with debridement: Mild Bleeding Controlled with: Pressure Patient tolerated procedure well Assessment/Plan Assessment: See above diagnoses Plan: Courtesy visit -the pressure ulcer is stable, better debridement today. Will have them discontinue the use of Santyl and apply daily loli to the wound with optifoam or equivalent. This will be changed everyday and as needed for soiling. Offloading measures encouraged with frequent position changes every 2 hours around the clock. These have been discussed with the patient and with her iscmhlvf-jt-xkn, who is at the bedside. The acqfhopn-ng-yru is a nurse, and appears to understand the recommendations. Patient is to continue using her gel cushion on her wheelchair. Frequent repositioning has been recommended. Labs reviewed and WNL. Recent culture reviewed which showed staph epidermidis and patient was started on 7 days of doxycycline per culture sensitivities and tolerated the antibiotic well. Good nutrition has been recommended, with the use of nutritional supplements such as Glucerna. Optimization of the patient's glycemic status has been also recommended. F/U in 1 week. Code Visit 111xxx-113xx: [id number] Juliette subq tissue 20 sq cm/<
== END 2018-03-14 23:59 ==
LOC: WC 14:00
PROVIDERS: Visit Provider Family Medicine
DX: E11.622 Type 2 diabetes mellitus with other skin ulcer (principal); R32 Unspecified urinary incontinence; G30.9 Alzheimer's disease, unspecified; F02.80 Dementia in other diseases classified elsewhere, unspecified severity, without behavioral disturbance, psychotic disturbance, mood disturbance, and anxiety; L89.313 Pressure ulcer of right buttock, stage 3; I10 Essential (primary) hypertension; E78.5 Hyperlipidemia, unspecified
CPT/HCPCS: 11042; 87070; 87075; 87077; 87186; 87205; 97602

== ENCOUNTER 2018-04-02 13:00 | Outpatient (RCR) | payer MEDICARE, SELFPAY ==
[2018-03-15 01:00] VITALS: BP 162/54; PULSE 87; RESP 18; TEMP 36.2
[2018-03-19 13:26] VITALS: BP 155/88; PULSE 86; RESP 16; TEMP 36.4
--- NOTE | 2018-03-19 17:27 | PCM.WC.PN ---
(1) Debility Status: Chronic Current Visit: Yes Code(s): R53.81 - Other malaise (2) Dementia Status: Chronic Current Visit: Yes Qualifiers: Alzheimer's disease onset: unspecified onset Dementia behavioral disturbance: without behavioral disturbance Code(s): F03.90 - Unspecified dementia without behavioral disturbance (3) Immobility Status: Chronic Current Visit: Yes Code(s): Z74.09 - Other reduced mobility (4) Diabetes Status: Chronic Current Visit: Yes Qualifiers: Diabetes mellitus type: type 2 Diabetes mellitus group home insulin use: unspecified group home insulin use status Diabetes mellitus complication status: with unspecified complications Qualified Code(s): E11.8 - Type 2 diabetes mellitus with unspecified complications Code(s): E11.9 - Type 2 diabetes mellitus without complications (5) Incontinence of urine Status: Chronic Current Visit: Yes Qualifiers: 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 She lives with her son and fyirfuzq-pa-dtj. Her jngkfbfn-pz-sai is a nurse. Patient presents with a stage II pressure ulceration of the right upper buttock, which is said to have been present for approximately 1 month. Additionally, there is a fullness in the left upper buttock, with overlying skin changes, though no breach in skin integrity. There are also signs of pressure phenomenon on each of the lower buttocks. The patient sleeps on a regular mattress. She has a gel cushion for her wheelchair. She is largely immobile, though walks short distances with the aid of a walker. The patient's appetite is said to be good. The patient has recently completed courses of Keflex and Cefdinir orally. She was seen by Dr. English last week and Santyl was prescribed for treatment. Her daughter in law has been doing this daily without complication. They have been working on offloading but bedtime is difficult. A low air loss mattress was ordered but they have not heard back from insurance at this time. Progress of Wound: Ricardo is seen in follow up today for stage 3 pressure ulcer right buttock. Pt is currently in SNF at [place] to provide better offloading to help heal the pressure ulcer. There has been improvement in her wound. Bhavana has been being used for the last week. No increase in drainage or pain per the patient's daughter in law. She has a low air loss mattress on her bed at [facility]. - Physical Exam Vital Signs Temp Pulse Resp BP 97.5 F L 86 16 155/88 H 03/19/18 13:26 03/19/18 13:26 03/19/18 13:26 03/19/18 13:26 General: Alert, Oriented x3, Cooperative, No apparent distress HEENT: Atraumatic, Normocephalic Oral: Moist Mucosa Abdomen: Obese Skin: Ulcer/ Wound Wound Measurements and Assessment WC - Nurse 1 - General Ulcer Measurement Start: 03/19/18 13:26 Freq: Status: Active Protocol: Activity Type Activity Date Activity User E-Sign Co-Sign Detail Recorded Client Recorded Date Recorded By Document 03/19/18 13:26 MW [id number] 03/19/18 13:33 MW 03/19/18 13:26 Wound Center Nurse 1 [Ulcer Assessment] #2- RT UPPER BUTTOCK STAGE 3 PRESSURE ULCER -Combined with other wound No -Current Size (cm) - Length 0.4 -Current Size (cm) - Width 0.6 -Current Size (cm) - Depth 0.5 -Total Square Cm 0.24 -Photo Taken No -Epithelialization Small 1-33% -Tunneling No -Undermining/Tunneling No -Circular Undermining No -Exudate Amt None Present (0 %) -Wound Margin Distinct, Outline Attached -Granulation Amt Small (1-33%) -Granulation Quality [place] -Slough/Fibrin Yes -Necrosis Amt Medium (34-66%) -Necrotic Tissue Type Adherent Slough -Structure Exposed N/A -Texture (Catalina-wound Skin Appearance) Assessed Scarring -Moisture (Catalina-wound Skin Appearance Assessed ) -Color ([place]-wound Skin Appearance) No Abnormality Assessed -Temperature ([place]-wound Skin No Abnormality Appearance) (Pt Warm) -Tenderness on Palpation ([place]-wound No Skin Appearance) -Ulcer Cleansing Rinsed/ Irrigated with Saline -Foul Odor after Cleansing No -Anesthetic Used 5% Lidocaine Gel [Edema Assessment] -Lower Limb Edema Present No WC - Nurse 2 - General Ulcer CM Notes Start: 03/19/18 13:26 Freq: Status: Active Protocol: Activity Type Activity Date Activity User E-Sign Co-Sign Detail Recorded Client Recorded Date Recorded By Document 03/19/18 13:52 [id number] 03/19/18 14:04 03/19/18 13:52 Wound Center Nurse 2 [Procedure/Treatment] #2- RT UPPER BUTTOCK STAGE 3 PRESSURE ULCER -Time 13:56 -Correct Patient Yes -Correct Side, Site, Position Yes -Correct Procedure Yes -Procedure Performed Yes -Type of Procedure Debridement -Clinical Debridement Subcutaneous -Post Debridement Size (cm) - Length 0.3 -Post Debridement Size (cm) - Width 0.5 -Post Debridement Size (cm) - Depth 1.0 -Total Square Cm 0.15 -Wound/Ulcer Outcome Not Healed -Ulcer Cleansing Rinsed/ Irrigated with Saline -Foul Odor after Cleansing No -Bioengineered Tissue No -Topical Lidocaine (%) 5 -Bleeding Controlled with Pressure -Other UNDERMINING @ 4 -8 (0.8CM) -Treatment Response Procedure Tolerated Well [See Physician Procedure note for Specifics] Pain Scale: 0-10 Numeric [Pain] -Is Patient Pain Free? Yes Psych/Mental Status: Normal Affect, Appropriate Debridement Note Post-Debridement Measurements/Treatment WC - Nurse 2 - General Ulcer CM Notes Start: 03/19/18 13:26 Freq: Status: Active Protocol: Activity Type Activity Date Activity User E-Sign Co-Sign Detail Recorded Client Recorded Date Recorded By Document 03/19/18 13:52 [id number] 03/19/18 14:04 03/19/18 13:52 Wound Center Nurse 2 #2- RT UPPER BUTTOCK STAGE 3 PRESSURE ULCER -Time 13:56 -Correct Patient Yes -Correct Side, Site, Position Yes -Correct Procedure Yes -Procedure Performed Yes -Type of Procedure Debridement -Clinical Debridement Subcutaneous -Post Debridement Size (cm) - Length 0.3 -Post Debridement Size (cm) - Width 0.5 -Post Debridement Size (cm) - Depth 1.0 -Total Square Cm 0.15 -Wound/Ulcer Outcome Not Healed -Ulcer Cleansing Rinsed/ Irrigated with Saline -Foul Odor after Cleansing No -Bioengineered Tissue No -Topical Lidocaine (%) 5 -Bleeding Controlled with Pressure -Other UNDERMINING @ 4 -8 (0.8CM) -Treatment Response Procedure Tolerated Well Pain Scale: 0-10 Numeric Is Patient Pain Free? Yes Wound debrided: right buttock stage 3 pressure ulcer Laterality: Right Wound Grade/Stage: stage III Type of Debridement: Excisional debridement Anesthesia Used: 4% Lidocaine Solution, 5% Lidocaine Gel Depth: Down to and including healthy tissue, in the subcutaneous layer Percentage of wound debrided: 100 Instrument Used: 5mm curette Tissue Removed: yellow slough, devitalized tissue Severity: Fat Layer Exposed Amount of bleeding with debridement: Mild Bleeding Controlled with: Compression and gauze Patient tolerated procedure well Assessment/Plan Active Problems Debility (Chronic) Dementia (Chronic) Immobility (Chronic) Diabetes (Chronic) Incontinence of urine (Chronic) Pressure ulcer of right buttock, stage 3 (Acute) Assessment: See above diagnoses Plan: Will change dressing to Aquacel rope as the wound has depth to it but the outside is decreasing in size. This will be changed everyday and as needed for soiling. Continue to use OptiFoam or equivalent on both areas on the upper buttocks to minimize pressure and shear forces. Offloading measures encouraged with frequent position changes every 2 hours around the clock. These have been discussed with the patient and with her awzhvcfa-hm-zdl, who is at the bedside. The qwdyogbm-ca-wqz is a nurse, and appears to understand the recommendations. Patient is to continue using her gel cushion on her wheelchair. Frequent repositioning has been recommended. Labs reviewed and WNL. Good nutrition has been recommended, with the use of nutritional supplements such as Glucerna. Optimization of the patient's glycemic status has been also recommended. F/U in 2 weeks.
--- NOTE | 2018-03-19 17:33 | PN.PCM_ITS ---
(1) Debility Status: Chronic Current Visit: Yes Code(s): R53.81 - Other malaise (2) Dementia Status: Chronic Current Visit: Yes Qualifiers: Alzheimer's disease onset: unspecified onset Dementia behavioral disturbance: without behavioral disturbance Code(s): F03.90 - Unspecified dementia without behavioral disturbance (3) Immobility Status: Chronic Current Visit: Yes Code(s): Z74.09 - Other reduced mobility (4) Diabetes Status: Chronic Current Visit: Yes Qualifiers: Diabetes mellitus type: type 2 Diabetes mellitus alf insulin use: unspecified alf insulin use status Diabetes mellitus complication status: with unspecified complications Qualified Code(s): E11.8 - Type 2 diabetes mellitus with unspecified complications Code(s): E11.9 - Type 2 diabetes mellitus without complications (5) Incontinence of urine Status: Chronic Current Visit: Yes Qualifiers: 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 She lives with her son and haywwjom-vv-dxq. Her kezqvrpc-dl-ios is a nurse. Patient presents with a stage II pressure ulceration of the right upper buttock, which is said to have been present for approximately 1 month. Additionally, there is a fullness in the left upper buttock, with overlying skin changes, though no breach in skin integrity. There are also signs of pressure phenomenon on each of the lower buttocks. The patient sleeps on a regular mattress. She has a gel cushion for her wheelchair. She is largely immobile, though walks short distances with the aid of a walker. The patient's appetite is said to be good. The patient has recently completed courses of Keflex and Cefdinir orally. She was seen by Dr. English last week and Santyl was prescribed for treatment. Her daughter in law has been doing this daily without complication. They have been working on offloading but bedtime is difficult. A low air loss mattress was ordered but they have not heard back from insurance at this time. Progress of Wound: Ricardo is seen in follow up today for stage 3 pressure ulcer right buttock. Pt is currently in SNF at [place] to provide better offloading to help heal the pressure ulcer. There has been improvement in her wound. Bhavana has been being used for the last week. No increase in drainage or pain per the patient's daughter in law. She has a low air loss mattress on her bed at [facility]. - Physical Exam Vital Signs Temp Pulse Resp BP 97.5 F L 86 16 155/88 H 03/19/18 13:26 03/19/18 13:26 03/19/18 13:26 03/19/18 13:26 General: Alert, Oriented x3, Cooperative, No apparent distress HEENT: Atraumatic, Normocephalic Oral: Moist Mucosa Abdomen: Obese Skin: Ulcer/ Wound Wound Measurements and Assessment WC - Nurse 1 - General Ulcer Measurement Start: 03/19/18 13:26 Freq: Status: Active Protocol: Activity Type Activity Date Activity User E-Sign Co-Sign Detail Recorded Client Recorded Date Recorded By Document 03/19/18 13:26 MW [id number] 03/19/18 13:33 MW 03/19/18 13:26 Wound Center Nurse 1 [Ulcer Assessment] #2- RT UPPER BUTTOCK STAGE 3 PRESSURE ULCER -Combined with other wound No -Current Size (cm) - Length 0.4 -Current Size (cm) - Width 0.6 -Current Size (cm) - Depth 0.5 -Total Square Cm 0.24 -Photo Taken No -Epithelialization Small 1-33% -Tunneling No -Undermining/Tunneling No -Circular Undermining No -Exudate Amt None Present (0 %) -Wound Margin Distinct, Outline Attached -Granulation Amt Small (1-33%) -Granulation Quality [place] -Slough/Fibrin Yes -Necrosis Amt Medium (34-66%) -Necrotic Tissue Type Adherent Slough -Structure Exposed N/A -Texture ([place]-wound Skin Appearance) Assessed Scarring -Moisture ([place]-wound Skin Appearance Assessed ) -Color ([place]-wound Skin Appearance) No Abnormality Assessed -Temperature ([place]-wound Skin No Abnormality Appearance) (Pt Warm) -Tenderness on Palpation ([place]-wound No Skin Appearance) -Ulcer Cleansing Rinsed/ Irrigated with Saline -Foul Odor after Cleansing No -Anesthetic Used 5% Lidocaine Gel [Edema Assessment] -Lower Limb Edema Present No WC - Nurse 2 - General Ulcer CM Notes Start: 03/19/18 13:26 Freq: Status: Active Protocol: Activity Type Activity Date Activity User E-Sign Co-Sign Detail Recorded Client Recorded Date Recorded By Document 03/19/18 13:52 [id number] 03/19/18 14:04 03/19/18 13:52 Wound Center Nurse 2 [Procedure/Treatment] #2- RT UPPER BUTTOCK STAGE 3 PRESSURE ULCER -Time 13:56 -Correct Patient Yes -Correct Side, Site, Position Yes -Correct Procedure Yes -Procedure Performed Yes -Type of Procedure Debridement -Clinical Debridement Subcutaneous -Post Debridement Size (cm) - Length 0.3 -Post Debridement Size (cm) - Width 0.5 -Post Debridement Size (cm) - Depth 1.0 -Total Square Cm 0.15 -Wound/Ulcer Outcome Not Healed -Ulcer Cleansing Rinsed/ Irrigated with Saline -Foul Odor after Cleansing No -Bioengineered Tissue No -Topical Lidocaine (%) 5 -Bleeding Controlled with Pressure -Other UNDERMINING @ 4 -8 (0.8CM) -Treatment Response Procedure Tolerated Well [See Physician Procedure note for Specifics] Pain Scale: 0-10 Numeric [Pain] -Is Patient Pain Free? Yes Psych/Mental Status: Normal Affect, Appropriate Debridement Note Post-Debridement Measurements/Treatment WC - Nurse 2 - General Ulcer CM Notes Start: 03/19/18 13:26 Freq: Status: Active Protocol: Activity Type Activity Date Activity User E-Sign Co-Sign Detail Recorded Client Recorded Date Recorded By Document 03/19/18 13:52 [id number] 03/19/18 14:04 03/19/18 13:52 Wound Center Nurse 2 #2- RT UPPER BUTTOCK STAGE 3 PRESSURE ULCER -Time 13:56 -Correct Patient Yes -Correct Side, Site, Position Yes -Correct Procedure Yes -Procedure Performed Yes -Type of Procedure Debridement -Clinical Debridement Subcutaneous -Post Debridement Size (cm) - Length 0.3 -Post Debridement Size (cm) - Width 0.5 -Post Debridement Size (cm) - Depth 1.0 -Total Square Cm 0.15 -Wound/Ulcer Outcome Not Healed -Ulcer Cleansing Rinsed/ Irrigated with Saline -Foul Odor after Cleansing No -Bioengineered Tissue No -Topical Lidocaine (%) 5 -Bleeding Controlled with Pressure -Other UNDERMINING @ 4 -8 (0.8CM) -Treatment Response Procedure Tolerated Well Pain Scale: 0-10 Numeric Is Patient Pain Free? Yes Wound debrided: right buttock stage 3 pressure ulcer Laterality: Right Wound Grade/Stage: stage III Type of Debridement: Excisional debridement Anesthesia Used: 4% Lidocaine Solution, 5% Lidocaine Gel Depth: Down to and including healthy tissue, in the subcutaneous layer Percentage of wound debrided: 100 Instrument Used: 5mm curette Tissue Removed: yellow slough, devitalized tissue Severity: Fat Layer Exposed Amount of bleeding with debridement: Mild Bleeding Controlled with: Compression and gauze Patient tolerated procedure well Assessment/Plan Active Problems Debility (Chronic) Dementia (Chronic) Immobility (Chronic) Diabetes (Chronic) Incontinence of urine (Chronic) Pressure ulcer of right buttock, stage 3 (Acute) Assessment: See above diagnoses Plan: Will change dressing to Aquacel rope as the wound has depth to it but the outside is decreasing in size. This will be changed everyday and as needed for soiling. Continue to use OptiFoam or equivalent on both areas on the upper buttocks to minimize pressure and shear forces. Offloading measures encouraged with frequent position changes every 2 hours around the clock. These have been discussed with the patient and with her wazxcobj-ul-syj, who is at the bedside. The [id number]-si-qba is a nurse, and appears to understand the recommendations. Patient is to continue using her gel cushion on her wheelchair. Frequent repositioning has been recommended. Labs reviewed and WNL. Good nutrition has been recommended, with the use of nutritional supplements such as Glucerna. Optimization of the patient's glycemic status has been also recommended. F/U in 2 weeks.
[2018-04-02 13:18] VITALS: BP 121/50; PULSE 73; RESP 18; TEMP 36.2
--- NOTE | 2018-04-02 18:27 | PCM.WC.PN ---
(1) Debility Status: Chronic Current Visit: Yes Code(s): R53.81 - Other malaise (2) Dementia Status: Chronic Current Visit: Yes Qualifiers: Alzheimer's disease onset: unspecified onset Dementia behavioral disturbance: without behavioral disturbance Code(s): F03.90 - Unspecified dementia without behavioral disturbance (3) Immobility Status: Chronic Current Visit: Yes Code(s): Z74.09 - Other reduced mobility (4) Diabetes Status: Chronic Current Visit: Yes Qualifiers: Diabetes mellitus type: type 2 Diabetes mellitus jail insulin use: unspecified jail insulin use status Diabetes mellitus complication status: with unspecified complications Qualified Code(s): E11.8 - Type 2 diabetes mellitus with unspecified complications Code(s): E11.9 - Type 2 diabetes mellitus without complications (5) Incontinence of urine Status: Chronic Current Visit: Yes Qualifiers: 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 She lives with her son and xoftmthy-zq-isx. Her ceqdcano-bg-yiw is a nurse. Patient presents with a stage II pressure ulceration of the right upper buttock, which is said to have been present for approximately 1 month. Additionally, there is a fullness in the left upper buttock, with overlying skin changes, though no breach in skin integrity. There are also signs of pressure phenomenon on each of the lower buttocks. The patient sleeps on a regular mattress. She has a gel cushion for her wheelchair. She is largely immobile, though walks short distances with the aid of a walker. The patient's appetite is said to be good. The patient has recently completed courses of Keflex and Cefdinir orally. She was seen by Dr. English last week and Santyl was prescribed for treatment. Her daughter in law has been doing this daily without complication. They have been working on offloading but bedtime is difficult. A low air loss mattress was ordered but they have not heard back from insurance at this time. Progress of Wound: Ricardo is seen in follow up today for stage 3 pressure ulcer right buttock. Pt is currently in SNF at [place] to provide better offloading to help heal the pressure ulcer. There has been improvement in her wound. Aquacel rope is being used and she is tolerating treatment. No increase in drainage or pain per the patient's daughter in law. She has a low air loss mattress on her bed at [facility]. - Physical Exam Vital Signs Temp Pulse Resp BP 97.1 F L 73 18 121/50 H 04/02/18 13:18 04/02/18 13:18 04/02/18 13:18 04/02/18 13:18 General: Alert, Oriented x3, Cooperative, No apparent distress HEENT: Atraumatic, Normocephalic Oral: Moist Mucosa Abdomen: Obese Skin: Ulcer/ Wound Wound Measurements and Assessment WC - Nurse 1 - General Ulcer Measurement Start: 03/19/18 13:26 Freq: Status: Active Protocol: Activity Type Activity Date Activity User E-Sign Co-Sign Detail Recorded Client Recorded Date Recorded By Document 04/02/18 13:18 VA [id number] 04/02/18 13:20 VA 04/02/18 13:18 Wound Center Nurse 1 [Ulcer Assessment] #2- RT UPPER BUTTOCK STAGE 3 PRESSURE ULCER -Combined with other wound No -Current Size (cm) - Length 0.7 -Current Size (cm) - Width 1 -Current Size (cm) - Depth 0.7 -Total Square Cm 0.7 -Photo Taken No -Epithelialization Small 1-33% -Tunneling No -Undermining/Tunneling No -Circular Undermining No -Exudate Amt None Present (0 %) -Wound Margin Distinct, Outline Attached -Granulation Amt Large (67-100%) -Granulation Quality Pale [place] -Slough/Fibrin No -Texture (Catalina-wound Skin Appearance) Assessed -Moisture ([place]-wound Skin Appearance Assessed ) -Color ([place]-wound Skin Appearance) Assessed -Temperature ([place]-wound Skin No Abnormality Appearance) (Pt Warm) -Tenderness on Palpation (Catalina-wound No Skin Appearance) -Ulcer Cleansing Rinsed/ Irrigated with Saline -Foul Odor after Cleansing No -Anesthetic Used 5% Lidocaine Gel WC - Nurse 2 - General Ulcer CM Notes Start: 03/19/18 13:26 Freq: Status: Active Protocol: Activity Type Activity Date Activity User E-Sign Co-Sign Detail Recorded Client Recorded Date Recorded By Document 04/02/18 13:29 [id number] 04/02/18 13:30 04/02/18 13:29 Wound Center Nurse 2 [Procedure/Treatment] -Time 13:10 -Correct Patient Yes -Correct Side, Site, Position Yes -Correct Procedure Yes -Procedure Performed Yes -Type of Procedure Debridement -Clinical Debridement Subcutaneous -Post Debridement Size (cm) - Length 0.5 -Post Debridement Size (cm) - Width 0.2 -Post Debridement Size (cm) - Depth 0.7 -Total Square Cm 0.10 -Wound/Ulcer Outcome Not Healed -Ulcer Cleansing Not Cleansed -Foul Odor after Cleansing No -Bioengineered Tissue No -Bleeding Controlled with NA -Treatment Response Procedure Tolerated Well [See Physician Procedure note for Specifics] Pain Scale: 0-10 Numeric [Pain] -Is Patient Pain Free? Yes Psych/Mental Status: Normal Affect, Appropriate Debridement Note Post-Debridement Measurements/Treatment - Nurse 2 - General Ulcer CM Notes Start: 03/19/18 13:26 Freq: Status: Active Protocol: Activity Type Activity Date Activity User E-Sign Co-Sign Detail Recorded Client Recorded Date Recorded By Document 03/19/18 13:52 [id number] 03/19/18 14:04 Document 04/02/18 13:29 [id number] 04/02/18 13:30 03/19/18 04/02/18 13:52 13:29 Wound Center Nurse 2 #2- RT UPPER BUTTOCK STAGE 3 PRESSURE ULCER -Time 13:56 13:10 -Correct Patient Yes Yes -Correct Side, Site, Position Yes Yes -Correct Procedure Yes Yes -Procedure Performed Yes Yes -Type of Procedure Debridement Debridement -Clinical Debridement Subcutaneous Subcutaneous -Post Debridement Size (cm) - Length 0.3 0.5 -Post Debridement Size (cm) - Width 0.5 0.2 -Post Debridement Size (cm) - Depth 1.0 0.7 -Total Square Cm 0.15 0.10 -Wound/Ulcer Outcome Not Healed Not Healed -Ulcer Cleansing Rinsed/ Not Cleansed Irrigated with Saline -Foul Odor after Cleansing No No -Bioengineered Tissue No No -Topical Lidocaine (%) 5 -Bleeding Controlled with Pressure NA -Other UNDERMINING @ 4 -8 (0.8CM) -Treatment Response Procedure Procedure Tolerated Well Tolerated Well Pain Scale: 0-10 Numeric Is Patient Pain Free? Yes Yes Wound debrided: right upper buttock stage III pressure ulcer Laterality: Right Type of Debridement: Excisional debridement Anesthesia Used: 4% Lidocaine Solution Depth: Down to and including healthy tissue, in the subcutaneous layer Percentage of wound debrided: 100 Instrument Used: 5mm curette Tissue Removed: yellow slough, devitalized tissue Severity: Fat Layer Exposed Amount of bleeding with debridement: Mild Bleeding Controlled with: Compression and gauze Patient tolerated procedure well Assessment/Plan Active Problems Debility (Chronic) Dementia (Chronic) Immobility (Chronic) Diabetes (Chronic) Incontinence of urine (Chronic) Pressure ulcer of right buttock, stage 3 (Chronic) Assessment: See above diagnoses Plan: Will continue dressing with Aquacel rope. This will be changed everyday and as needed for soiling. Continue to use OptiFoam or equivalent on both areas on the upper buttocks to minimize pressure and shear forces. Offloading measures encouraged with frequent position changes every 2 hours around the clock. These have been discussed with the patient and with her gplcdlor-eh-xmn, who is at the bedside. The kbzzxgoz-tb-pmw is a nurse, and appears to understand the recommendations. Patient is to continue using her gel cushion on her wheelchair. Frequent repositioning has been recommended. Labs reviewed and WNL. Good nutrition has been recommended, with the use of nutritional supplements such as Glucerna. Optimization of the patient's glycemic status has been also recommended. F/U in 2 weeks.
--- NOTE | 2018-04-02 18:30 | PN.PCM_ITS ---
(1) Debility Status: Chronic Current Visit: Yes Code(s): R53.81 - Other malaise (2) Dementia Status: Chronic Current Visit: Yes Qualifiers: Alzheimer's disease onset: unspecified onset Dementia behavioral disturbance: without behavioral disturbance Code(s): F03.90 - Unspecified dementia without behavioral disturbance (3) Immobility Status: Chronic Current Visit: Yes Code(s): Z74.09 - Other reduced mobility (4) Diabetes Status: Chronic Current Visit: Yes Qualifiers: Diabetes mellitus type: type 2 Diabetes mellitus senior care insulin use: unspecified senior care insulin use status Diabetes mellitus complication status: with unspecified complications Qualified Code(s): E11.8 - Type 2 diabetes mellitus with unspecified complications Code(s): E11.9 - Type 2 diabetes mellitus without complications (5) Incontinence of urine Status: Chronic Current Visit: Yes Qualifiers: 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 She lives with her son and bqwccnlz-lz-lkz. Her kqgnnfpe-wl-udd is a nurse. Patient presents with a stage II pressure ulceration of the right upper buttock, which is said to have been present for approximately 1 month. Additionally, there is a fullness in the left upper buttock, with overlying skin changes, though no breach in skin integrity. There are also signs of pressure phenomenon on each of the lower buttocks. The patient sleeps on a regular mattress. She has a gel cushion for her wheelchair. She is largely immobile, though walks short distances with the aid of a walker. The patient's appetite is said to be good. The patient has recently completed courses of Keflex and Cefdinir orally. She was seen by Dr. English last week and Santyl was prescribed for treatment. Her daughter in law has been doing this daily without complication. They have been working on offloading but bedtime is difficult. A low air loss mattress was ordered but they have not heard back from insurance at this time. Progress of Wound: Ricardo is seen in follow up today for stage 3 pressure ulcer right buttock. Pt is currently in SNF at [place] to provide better offloading to help heal the pressure ulcer. There has been improvement in her wound. Aquacel rope is being used and she is tolerating treatment. No increase in drainage or pain per the patient's daughter in law. She has a low air loss mattress on her bed at [facility]. - Physical Exam Vital Signs Temp Pulse Resp BP 97.1 F L 73 18 121/50 H 04/02/18 13:18 04/02/18 13:18 04/02/18 13:18 04/02/18 13:18 General: Alert, Oriented x3, Cooperative, No apparent distress HEENT: Atraumatic, Normocephalic Oral: Moist Mucosa Abdomen: Obese Skin: Ulcer/ Wound Wound Measurements and Assessment WC - Nurse 1 - General Ulcer Measurement Start: 03/19/18 13:26 Freq: Status: Active Protocol: Activity Type Activity Date Activity User E-Sign Co-Sign Detail Recorded Client Recorded Date Recorded By Document 04/02/18 13:18 MA [id number] 04/02/18 13:20 MA 04/02/18 13:18 Wound Center Nurse 1 [Ulcer Assessment] #2- RT UPPER BUTTOCK STAGE 3 PRESSURE ULCER -Combined with other wound No -Current Size (cm) - Length 0.7 -Current Size (cm) - Width 1 -Current Size (cm) - Depth 0.7 -Total Square Cm 0.7 -Photo Taken No -Epithelialization Small 1-33% -Tunneling No -Undermining/Tunneling No -Circular Undermining No -Exudate Amt None Present (0 %) -Wound Margin Distinct, Outline Attached -Granulation Amt Large (67-100%) -Granulation Quality Pale [place] -Slough/Fibrin No -Texture (Catalina-wound Skin Appearance) Assessed -Moisture ([place]ina-wound Skin Appearance Assessed ) -Color (Catalina-wound Skin Appearance) Assessed -Temperature (Catalina-wound Skin No Abnormality Appearance) (Pt Warm) -Tenderness on Palpation (Catalina-wound No Skin Appearance) -Ulcer Cleansing Rinsed/ Irrigated with Saline -Foul Odor after Cleansing No -Anesthetic Used 5% Lidocaine Gel WC - Nurse 2 - General Ulcer CM Notes Start: 03/19/18 13:26 Freq: Status: Active Protocol: Activity Type Activity Date Activity User E-Sign Co-Sign Detail Recorded Client Recorded Date Recorded By Document 04/02/18 13:29 [id number] 04/02/18 13:30 04/02/18 13:29 Wound Center Nurse 2 [Procedure/Treatment] -Time 13:10 -Correct Patient Yes -Correct Side, Site, Position Yes -Correct Procedure Yes -Procedure Performed Yes -Type of Procedure Debridement -Clinical Debridement Subcutaneous -Post Debridement Size (cm) - Length 0.5 -Post Debridement Size (cm) - Width 0.2 -Post Debridement Size (cm) - Depth 0.7 -Total Square Cm 0.10 -Wound/Ulcer Outcome Not Healed -Ulcer Cleansing Not Cleansed -Foul Odor after Cleansing No -Bioengineered Tissue No -Bleeding Controlled with NA -Treatment Response Procedure Tolerated Well [See Physician Procedure note for Specifics] Pain Scale: 0-10 Numeric [Pain] -Is Patient Pain Free? Yes Psych/Mental Status: Normal Affect, Appropriate Debridement Note Post-Debridement Measurements/Treatment - Nurse 2 - General Ulcer CM Notes Start: 03/19/18 13:26 Freq: Status: Active Protocol: Activity Type Activity Date Activity User E-Sign Co-Sign Detail Recorded Client Recorded Date Recorded By Document 03/19/18 13:52 [id number] 03/19/18 14:04 Document 04/02/18 13:29 [id number] 04/02/18 13:30 03/19/18 04/02/18 13:52 13:29 Wound Center Nurse 2 #2- RT UPPER BUTTOCK STAGE 3 PRESSURE ULCER -Time 13:56 13:10 -Correct Patient Yes Yes -Correct Side, Site, Position Yes Yes -Correct Procedure Yes Yes -Procedure Performed Yes Yes -Type of Procedure Debridement Debridement -Clinical Debridement Subcutaneous Subcutaneous -Post Debridement Size (cm) - Length 0.3 0.5 -Post Debridement Size (cm) - Width 0.5 0.2 -Post Debridement Size (cm) - Depth 1.0 0.7 -Total Square Cm 0.15 0.10 -Wound/Ulcer Outcome Not Healed Not Healed -Ulcer Cleansing Rinsed/ Not Cleansed Irrigated with Saline -Foul Odor after Cleansing No No -Bioengineered Tissue No No -Topical Lidocaine (%) 5 -Bleeding Controlled with Pressure NA -Other UNDERMINING @ 4 -8 (0.8CM) -Treatment Response Procedure Procedure Tolerated Well Tolerated Well Pain Scale: 0-10 Numeric Is Patient Pain Free? Yes Yes Wound debrided: right upper buttock stage III pressure ulcer Laterality: Right Type of Debridement: Excisional debridement Anesthesia Used: 4% Lidocaine Solution Depth: Down to and including healthy tissue, in the subcutaneous layer Percentage of wound debrided: 100 Instrument Used: 5mm curette Tissue Removed: yellow slough, devitalized tissue Severity: Fat Layer Exposed Amount of bleeding with debridement: Mild Bleeding Controlled with: Compression and gauze Patient tolerated procedure well Assessment/Plan Active Problems Debility (Chronic) Dementia (Chronic) Immobility (Chronic) Diabetes (Chronic) Incontinence of urine (Chronic) Pressure ulcer of right buttock, stage 3 (Chronic) Assessment: See above diagnoses Plan: Will continue dressing with Aquacel rope. This will be changed everyday and as needed for soiling. Continue to use OptiFoam or equivalent on both areas on the upper buttocks to minimize pressure and shear forces. Offloading measures encouraged with frequent position changes every 2 hours around the clock. These have been discussed with the patient and with her yweepzau-jc-obj, who is at the bedside. The esggejxc-sh-tfo is a nurse, and appears to understand the recommendations. Patient is to continue using her gel cushion on her wheelchair. Frequent repositioning has been recommended. Labs reviewed and WNL. Good nutrition has been recommended, with the use of nutritional supplements such as Glucerna. Optimization of the patient's glycemic status has been also recommended. F/U in 2 weeks.
== END 2018-04-14 23:59 ==
LOC: WC 13:00
PROVIDERS: Visit Provider Family Medicine
DX: E11.622 Type 2 diabetes mellitus with other skin ulcer (principal); N39.46 Mixed incontinence; L89.313 Pressure ulcer of right buttock, stage 3; G30.9 Alzheimer's disease, unspecified; F02.80 Dementia in other diseases classified elsewhere, unspecified severity, without behavioral disturbance, psychotic disturbance, mood disturbance, and anxiety
CPT/HCPCS: 11042

== ENCOUNTER 2018-05-14 13:30 | Outpatient (RCR) | payer MEDICARE, SELFPAY ==
[2018-04-15 01:04] VITALS: BP 121/50; PULSE 73; RESP 18; TEMP 36.2
[2018-04-16 13:02] VITALS: BP 141/72; PULSE 77; RESP 16; TEMP 36.3
--- NOTE | 2018-04-16 17:43 | PCM.WC.PN ---
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 mellitus long term care pharmacist insulin use: unspecified halfway insulin use status Diabetes mellitus complication status: with unspecified complications Qualified Code(s): E11.8 - Type 2 diabetes mellitus with unspecified complications Code(s): E11.9 - Type 2 diabetes mellitus without complications (4) Pressure ulcer of right buttock, stage 3 Status: Chronic Current Visit: Yes Code(s): L89.313 - Pressure ulcer of right buttock, stage 3 Type of Wound Date of Service: 04/16/18 Chief Complaint: Stage III pressure ulceration of the right upper buttock History of Wound: This is an 82-year-old female who is debilitated, and suffers from dementia. She lives with her son and sdzothxx-rb-row. Her kkvrmttw-il-oca is a nurse. Patient presents with a stage II pressure ulceration of the right upper buttock, which is said to have been present for approximately 1 month. Additionally, there is a fullness in the left upper buttock, with overlying skin changes, though no breach in skin integrity. There are also signs of pressure phenomenon on each of the lower buttocks. The patient sleeps on a regular mattress. She has a gel cushion for her wheelchair. She is largely immobile, though walks short distances with the aid of a walker. The patient's appetite is said to be good. The patient has recently completed courses of Keflex and Cefdinir orally. She was seen by Dr. English last week and Santyl was prescribed for treatment. Her daughter in law has been doing this daily without complication. They have been working on offloading but bedtime is difficult. A low air loss mattress was ordered but they have not heard back from insurance at this time. Progress of Wound: Ricardo is seen in follow up today for stage 3 pressure ulcer right buttock. Pt is currently in SNF at [place] to provide better offloading to help heal the pressure ulcer. There has been mild improvement in her wound. Aquacel rope is being used and she is tolerating treatment. No increase in drainage or pain per the patient's daughter in law. She has a low air loss mattress on her bed at [facility]. - Physical Exam Vital Signs Temp Pulse Resp BP 97.3 F L 77 16 141/72 H 04/16/18 13:02 04/16/18 13:02 04/16/18 13:02 04/16/18 13:02 General: Alert, Oriented x3, Cooperative, No apparent distress HEENT: Atraumatic, Normocephalic Oral: Moist Mucosa Abdomen: Obese Skin: Ulcer/ Wound Wound Measurements and Assessment WC - Nurse 1 - General Ulcer Measurement Start: 04/16/18 12:55 Freq: Status: Active Protocol: Activity Type Activity Date Activity User E-Sign Co-Sign Detail Recorded Client Recorded Date Recorded By Document 04/16/18 13:02 [facility] [id number] 04/16/18 13:10 [facility] 04/16/18 13:02 Wound Center Nurse 1 [Ulcer Assessment] #2- RT UPPER BUTTOCK STAGE 3 PRESSURE ULCER -Combined with other wound No -Current Size (cm) - Length 0.6 -Current Size (cm) - Width 0.8 -Current Size (cm) - Depth 1 -Total Square Cm 0.48 -Photo Taken No -Epithelialization None Present -Tunneling No -Undermining/Tunneling No -Circular Undermining No -Exudate Amt Small (1-33%) -Exudate Type Sanguineous -Wound Margin Distinct, Outline Attached -Granulation Amt Large (67-100%) -Granulation Quality Red -Slough/Fibrin No -Necrosis Amt None Present (0 %) -Texture (Catalina-wound Skin Appearance) Scarring -Moisture ([place]-wound Skin Appearance Assessed ) -Color ([place]-wound Skin Appearance) Erythema -Temperature ([place]-wound Skin No Abnormality Appearance) (Pt Warm) -Tenderness on Palpation ([place]-wound No Skin Appearance) -Ulcer Cleansing Rinsed/ Irrigated with Saline -Foul Odor after Cleansing No -Anesthetic Used 4% Lidocaine Solution WC - Nurse 2 - General Ulcer CM Notes Start: 04/16/18 12:55 Freq: Status: Active Protocol: Activity Type Activity Date Activity User E-Sign Co-Sign Detail Recorded Client Recorded Date Recorded By Document 11/02/18 13:42 [id number] 04/16/18 13:50 04/16/18 13:42 Wound Center Nurse 2 [Procedure/Treatment] -Time 13:42 -Correct Patient Yes -Correct Side, Site, Position Yes -Correct Procedure Yes -Procedure Performed Yes -Type of Procedure Debridement -Clinical Debridement Subcutaneous -Post Debridement Size (cm) - Length 0.7 -Post Debridement Size (cm) - Width 1 -Post Debridement Size (cm) - Depth 0.7 -Total Square Cm 0.7 -Wound/Ulcer Outcome Not Healed -Ulcer Cleansing Not Cleansed -Foul Odor after Cleansing No -Bleeding Controlled with Pressure -Treatment Response Procedure Tolerated Well [See Physician Procedure note for Specifics] Pain Scale: 0-10 Numeric [Pain] -Is Patient Pain Free? Yes Psych/Mental Status: Normal Affect, Appropriate Debridement Note Post-Debridement Measurements/Treatment WC - Nurse 2 - General Ulcer CM Notes Start: 04/16/18 12:55 Freq: Status: Active Protocol: Activity Type Activity Date Activity User E-Sign Co-Sign Detail Recorded Client Recorded Date Recorded By Document 04/16/18 13:42 [id number] 04/16/18 13:50 04/16/18 13:42 Wound Center Nurse 2 #2- RT UPPER BUTTOCK STAGE 3 PRESSURE ULCER -Time 13:42 -Correct Patient Yes -Correct Side, Site, Position Yes -Correct Procedure Yes -Procedure Performed Yes -Type of Procedure Debridement -Clinical Debridement Subcutaneous -Post Debridement Size (cm) - Length 0.7 -Post Debridement Size (cm) - Width 1 -Post Debridement Size (cm) - Depth 0.7 -Total Square Cm 0.7 -Wound/Ulcer Outcome Not Healed -Ulcer Cleansing Not Cleansed -Foul Odor after Cleansing No -Bleeding Controlled with Pressure -Treatment Response Procedure Tolerated Well Pain Scale: 0-10 Numeric Is Patient Pain Free? Yes Wound debrided: right upper buttock stage III pressure ulcer Laterality: Right Wound Grade/Stage: Stage III Type of Debridement: Excisional debridement Anesthesia Used: 4% Lidocaine Solution Depth: Down to and including healthy tissue, in the subcutaneous layer Percentage of wound debrided: 100 Instrument Used: 7mm curette Tissue Removed: devitalized tissue, yellow slough Severity: Fat Layer Exposed Amount of bleeding with debridement: Mild Bleeding Controlled with: Compression and gauze Patient tolerated procedure well Assessment/Plan Active Problems Debility (Chronic) Dementia (Chronic) Diabetes (Chronic) Pressure ulcer of right buttock, stage 3 (Chronic) Assessment: See above diagnoses Plan: Will continue dressing with Aquacel rope. This will be changed everyday and as needed for soiling. Continue to use OptiFoam or equivalent on both areas on the upper buttocks to minimize pressure and shear forces. Due to lack of pogress will check wound culture to r/o infection. Will treat based on results. Offloading measures encouraged with frequent position changes every 2 hours around the clock. These have been discussed with the patient and with her tjpxswei-ye-xjp, who is at the bedside. The knpjlmom-er-mne is a nurse, and appears to understand the recommendations. Patient is to continue using her gel cushion on her wheelchair. Frequent repositioning has been recommended. Labs reviewed and WNL. Good nutrition has been recommended, with the use of nutritional supplements such as Glucerna. Optimization of the patient's glycemic status has been also recommended. Her son was also present today and was unhappy with her progress. Reiterated importance of increased protein and offloading. Discussed schedule of offloading to follow at SNF. Could consider possible epifix application if insurance will cover. F/U 2 weeks.
--- NOTE | 2018-04-16 17:50 | PN.PCM_ITS ---
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 exterminator insulin use: unspecified jail insulin use status Diabetes mellitus complication status: with unspecified complications Qualified Code(s): E11.8 - Type 2 diabetes mellitus with unspecified complications Code(s): E11.9 - Type 2 diabetes mellitus without complications (4) Pressure ulcer of right buttock, stage 3 Status: Chronic Current Visit: Yes Code(s): L89.313 - Pressure ulcer of right buttock, stage 3 Type of Wound Date of Service: 04/16/18 Chief Complaint: Stage III pressure ulceration of the right upper buttock History of Wound: This is an 82-year-old female who is debilitated, and suffers from dementia. She lives with her son and gvsbydng-gm-toq. Her phqxjvju-vr-yqk is a nurse. Patient presents with a stage II pressure ulceration of the right upper buttock, which is said to have been present for approximately 1 month. Additionally, there is a fullness in the left upper buttock, with overlying skin changes, though no breach in skin integrity. There are also signs of pressure phenomenon on each of the lower buttocks. The patient sleeps on a regular mattress. She has a gel cushion for her wheelchair. She is largely immobile, though walks short distances with the aid of a walker. The patient's appetite is said to be good. The patient has recently completed courses of Keflex and Cefdinir orally. She was seen by Dr. English last week and Santyl was prescribed for treatment. Her daughter in law has been doing this daily without complication. They have been working on offloading but bedtime is difficult. A low air loss mattress was ordered but they have not heard back from insurance at this time. Progress of Wound: Ricardo is seen in follow up today for stage 3 pressure ulcer right buttock. Pt is currently in SNF at [place] to provide better offloading to help heal the pressure ulcer. There has been mild improvement in her wound. Aquacel rope is being used and she is tolerating treatment. No increase in drainage or pain per the patient's daughter in law. She has a low air loss mattress on her bed at [facility]. - Physical Exam Vital Signs Temp Pulse Resp BP 97.3 F L 77 16 141/72 H 04/16/18 13:02 04/16/18 13:02 04/16/18 13:02 04/16/18 13:02 General: Alert, Oriented x3, Cooperative, No apparent distress HEENT: Atraumatic, Normocephalic Oral: Moist Mucosa Abdomen: Obese Skin: Ulcer/ Wound Wound Measurements and Assessment WC - Nurse 1 - General Ulcer Measurement Start: 04/16/18 12:55 Freq: Status: Active Protocol: Activity Type Activity Date Activity User E-Sign Co-Sign Detail Recorded Client Recorded Date Recorded By Document 04/16/18 13:02 [facility] [id number] 04/16/18 13:10 [facility] 04/16/18 13:02 Wound Center Nurse 1 [Ulcer Assessment] #2- RT UPPER BUTTOCK STAGE 3 PRESSURE ULCER -Combined with other wound No -Current Size (cm) - Length 0.6 -Current Size (cm) - Width 0.8 -Current Size (cm) - Depth 1 -Total Square Cm 0.48 -Photo Taken No -Epithelialization None Present -Tunneling No -Undermining/Tunneling No -Circular Undermining No -Exudate Amt Small (1-33%) -Exudate Type Sanguineous -Wound Margin Distinct, Outline Attached -Granulation Amt Large (67-100%) -Granulation Quality Red -Slough/Fibrin No -Necrosis Amt None Present (0 %) -Texture (Catalina-wound Skin Appearance) Scarring -Moisture ([place]ina-wound Skin Appearance Assessed ) -Color ([place]-wound Skin Appearance) Erythema -Temperature ([place]-wound Skin No Abnormality Appearance) (Pt Warm) -Tenderness on Palpation ([place]-wound No Skin Appearance) -Ulcer Cleansing Rinsed/ Irrigated with Saline -Foul Odor after Cleansing No -Anesthetic Used 4% Lidocaine Solution WC - Nurse 2 - General Ulcer CM Notes Start: 04/16/18 12:55 Freq: Status: Active Protocol: Activity Type Activity Date Activity User E-Sign Co-Sign Detail Recorded Client Recorded Date Recorded By Document 11/02/18 13:42 [id number] 04/16/18 13:50 04/16/18 13:42 Wound Center Nurse 2 [Procedure/Treatment] -Time 13:42 -Correct Patient Yes -Correct Side, Site, Position Yes -Correct Procedure Yes -Procedure Performed Yes -Type of Procedure Debridement -Clinical Debridement Subcutaneous -Post Debridement Size (cm) - Length 0.7 -Post Debridement Size (cm) - Width 1 -Post Debridement Size (cm) - Depth 0.7 -Total Square Cm 0.7 -Wound/Ulcer Outcome Not Healed -Ulcer Cleansing Not Cleansed -Foul Odor after Cleansing No -Bleeding Controlled with Pressure -Treatment Response Procedure Tolerated Well [See Physician Procedure note for Specifics] Pain Scale: 0-10 Numeric [Pain] -Is Patient Pain Free? Yes Psych/Mental Status: Normal Affect, Appropriate Debridement Note Post-Debridement Measurements/Treatment WC - Nurse 2 - General Ulcer CM Notes Start: 04/16/18 12:55 Freq: Status: Active Protocol: Activity Type Activity Date Activity User E-Sign Co-Sign Detail Recorded Client Recorded Date Recorded By Document 04/16/18 13:42 [id number] 04/16/18 13:50 04/16/18 13:42 Wound Center Nurse 2 #2- RT UPPER BUTTOCK STAGE 3 PRESSURE ULCER -Time 13:42 -Correct Patient Yes -Correct Side, Site, Position Yes -Correct Procedure Yes -Procedure Performed Yes -Type of Procedure Debridement -Clinical Debridement Subcutaneous -Post Debridement Size (cm) - Length 0.7 -Post Debridement Size (cm) - Width 1 -Post Debridement Size (cm) - Depth 0.7 -Total Square Cm 0.7 -Wound/Ulcer Outcome Not Healed -Ulcer Cleansing Not Cleansed -Foul Odor after Cleansing No -Bleeding Controlled with Pressure -Treatment Response Procedure Tolerated Well Pain Scale: 0-10 Numeric Is Patient Pain Free? Yes Wound debrided: right upper buttock stage III pressure ulcer Laterality: Right Wound Grade/Stage: Stage III Type of Debridement: Excisional debridement Anesthesia Used: 4% Lidocaine Solution Depth: Down to and including healthy tissue, in the subcutaneous layer Percentage of wound debrided: 100 Instrument Used: 7mm curette Tissue Removed: devitalized tissue, yellow slough Severity: Fat Layer Exposed Amount of bleeding with debridement: Mild Bleeding Controlled with: Compression and gauze Patient tolerated procedure well Assessment/Plan Active Problems Debility (Chronic) Dementia (Chronic) Diabetes (Chronic) Pressure ulcer of right buttock, stage 3 (Chronic) Assessment: See above diagnoses Plan: Will continue dressing with Aquacel rope. This will be changed everyday and as needed for soiling. Continue to use OptiFoam or equivalent on both areas on the upper buttocks to minimize pressure and shear forces. Due to lack of pogress will check wound culture to r/o infection. Will treat based on results. Offloading measures encouraged with frequent position changes every 2 hours ilda und the clock. These have been discussed with the patient and with her sgfrtfye-uh-nzg, who is at the bedside. The ixrevhbq-ah-abe is a nurse, and appears to understand the recommendations. Patient is to continue using her gel cushion on her wheelchair. Frequent repositioning has been recommended. Labs reviewed and WNL. Good nutrition has been recommended, with the use of nutritional supplements such as Glucerna. Optimization of the patient's glycemic status has been also recommended. Her son was also present today and was unhappy with her progress. Reiterated importance of increased protein and offloading. Discussed schedule of offloading to follow at SNF. Could consider possible epifix application if insurance will cover. F/U 2 weeks.
[2018-04-30 12:23] VITALS: BP 145/60; PULSE 75; RESP 18; TEMP 35.4
--- NOTE | 2018-04-30 17:12 | PCM.WC.PN ---
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 mellitus roasterman insulin use: unspecified prison insulin use status Diabetes mellitus complication status: with unspecified complications Qualified Code(s): E11.8 - Type 2 diabetes mellitus with unspecified complications Code(s): E11.9 - Type 2 diabetes mellitus without complications (4) Pressure ulcer of right buttock, stage 3 Status: Chronic Current Visit: Yes Code(s): L89.313 - Pressure ulcer of right buttock, stage 3 Type of Wound Date of Service: 04/30/18 Chief Complaint: Stage III pressure ulceration of the right upper buttock History of Wound: This is an 82-year-old female who is debilitated, and suffers from dementia. She lives with her son and kqnrnqpo-co-anf. Her ogzzsrrk-ti-hnp is a nurse. Patient presents with a stage II pressure ulceration of the right upper buttock, which is said to have been present for approximately 1 month. Additionally, there is a fullness in the left upper buttock, with overlying skin changes, though no breach in skin integrity. There are also signs of pressure phenomenon on each of the lower buttocks. The patient sleeps on a regular mattress. She has a gel cushion for her wheelchair. She is largely immobile, though walks short distances with the aid of a walker. The patient's appetite is said to be good. The patient has recently completed courses of Keflex and Cefdinir orally. She was seen by Dr. English last week and Santyl was prescribed for treatment. Her daughter in law has been doing this daily without complication. They have been working on offloading but bedtime is difficult. A low air loss mattress was ordered but they have not heard back from insurance at this time. Progress of Wound: Ricardo is seen in follow up today for stage 3 pressure ulcer right buttock. Pt is currently in SNF at [place] to provide better offloading to help heal the pressure ulcer. There has been mild improvement in her wound. Aquacel rope is being used and she is tolerating treatment. No increase in drainage or pain per the patient's daughter in law. She has a low air loss mattress on her bed at [facility]. - Physical Exam Vital Signs Temp Pulse Resp BP 95.7 F L 75 18 145/60 H 04/30/18 12:23 04/30/18 12:23 04/30/18 12:23 04/30/18 12:23 General: Alert, Oriented x3, Cooperative, No apparent distress HEENT: Atraumatic, Normocephalic Oral: Moist Mucosa Abdomen: Obese Skin: Ulcer/ Wound Wound Measurements and Assessment WC - Nurse 1 - General Ulcer Measurement Start: 04/16/18 12:55 Freq: Status: Active Protocol: Activity Type Activity Date Activity User E-Sign Co-Sign Detail Recorded Client Recorded Date Recorded By Document 04/30/18 12:23 [facility] [id number] 04/30/18 12:30 [facility] 04/30/18 12:23 Wound Center Nurse 1 [Ulcer Assessment] #2- RT UPPER BUTTOCK STAGE 3 PRESSURE ULCER -Combined with other wound No -Current Size (cm) - Length 0.3 -Current Size (cm) - Width 0.3 -Current Size (cm) - Depth 1.2 -Total Square Cm 0.09 -Date of Last Picture (Recall this 04/30/18 field) -Photo Taken Yes -Epithelialization None Present -Tunneling No -Undermining/Tunneling No -Circular Undermining No -Exudate Amt Small (1-33%) -Exudate Type Sanguineous -Wound Margin Distinct, Outline Attached -Granulation Amt Large (67-100%) -Granulation Quality Red -Slough/Fibrin No -Necrosis Amt None Present (0 %) -Texture (Catalina-wound Skin Appearance) Scarring -Moisture (Catalina-wound Skin Appearance Assessed ) -Color (Catalina-wound Skin Appearance) Assessed Erythema -Temperature (Catalina-wound Skin No Abnormality Appearance) (Pt Warm) -Tenderness on Palpation (Catalina-wound No Skin Appearance) -Ulcer Cleansing Rinsed/ Irrigated with Saline -Foul Odor after Cleansing No -Anesthetic Used 5% Lidocaine Gel WC - Nurse 2 - General Ulcer CM Notes Start: 04/16/18 12:55 Freq: Status: Active Protocol: Activity Type Activity Date Activity User E-Sign Co-Sign Detail Recorded Client Recorded Date Recorded By Document 04/30/18 13:31 [id number] 04/30/18 13:32 04/30/18 13:31 Wound Center Nurse 2 [Procedure/Treatment] -Time 13:31 -Correct Patient Yes -Correct Side, Site, Position Yes -Correct Procedure Yes -Procedure Performed Yes -Type of Procedure Debridement -Clinical Debridement Subcutaneous -Post Debridement Size (cm) - Length 0.5 -Post Debridement Size (cm) - Width 0.4 -Post Debridement Size (cm) - Depth 0.7 -Total Square Cm 0.20 -Wound/Ulcer Outcome Not Healed -Ulcer Cleansing Rinsed/ Irrigated with Saline -Foul Odor after Cleansing No -Bioengineered Tissue No -Bleeding Controlled with Pressure -Treatment Response Procedure Tolerated Well [See Physician Procedure note for Specifics] Pain Scale: 0-10 Numeric [Pain] -Is Patient Pain Free? Yes Psych/Mental Status: Normal Affect, Appropriate Debridement Note Post-Debridement Measurements/Treatment WC - Nurse 2 - General Ulcer CM Notes Start: 04/16/18 12:55 Freq: Status: Active Protocol: Activity Type Activity Date Activity User E-Sign Co-Sign Detail Recorded Client Recorded Date Recorded By Document 04/16/18 13:42 [id number] 04/16/18 13:50 Document 04/30/18 13:31 [id number] 04/30/18 13:32 04/16/18 04/30/18 13:42 13:31 Wound Center Nurse 2 #2- RT UPPER BUTTOCK STAGE 3 PRESSURE ULCER -Time 13:42 13:31 -Correct Patient Yes Yes -Correct Side, Site, Position Yes Yes -Correct Procedure Yes Yes -Procedure Performed Yes Yes -Type of Procedure Debridement Debridement -Clinical Debridement Subcutaneous Subcutaneous -Post Debridement Size (cm) - Length 0.7 0.5 -Post Debridement Size (cm) - Width 1 0.4 -Post Debridement Size (cm) - Depth 0.7 0.7 -Total Square Cm 0.7 0.20 -Wound/Ulcer Outcome Not Healed Not Healed -Ulcer Cleansing Not Cleansed Rinsed/ Irrigated with Saline -Foul Odor after Cleansing No No -Bioengineered Tissue No -Bleeding Controlled with Pressure Pressure -Treatment Response Procedure Procedure Tolerated Well Tolerated Well Pain Scale: 0-10 Numeric Is Patient Pain Free? Yes Yes Wound debrided: right upper buttock stage III pressure ulcer Laterality: Right Type of Debridement: Excisional debridement Anesthesia Used: 4% Lidocaine Solution Depth: Down to and including healthy tissue, in the subcutaneous layer Percentage of wound debrided: 100 Instrument Used: 5mm curette Tissue Removed: yellow slough, devitalized tissue Severity: Fat Layer Exposed Amount of bleeding with debridement: Mild Bleeding Controlled with: Compression and gauze Patient tolerated procedure well Assessment/Plan Active Problems Debility (Chronic) Dementia (Chronic) Diabetes (Chronic) Pressure ulcer of right buttock, stage 3 (Chronic) Assessment: See above diagnoses Plan: Will continue dressing with Aquacel rope. This will be changed everyday and as needed for soiling. Continue to use OptiFoam or equivalent on both areas on the upper buttocks to minimize pressure and shear forces. MRSA found on wound culture and she has completed antibiotics. Offloading measures encouraged with frequent position changes every 2 hours around the clock. These have been discussed with the patient and with her gvmasoiw-yo-opl, who is at the bedside. The gerlttsm-hm-hzf is a nurse, and appears to understand the recommendations. Patient is to continue using her gel cushion on her wheelchair. Frequent repositioning has been recommended. Labs reviewed and WNL. Good nutrition has been recommended, with the use of nutritional supplements such as Glucerna. Optimization of the patient's glycemic status has been also recommended. Her son was also present today and was unhappy with her progress. Reiterated importance of increased protein and offloading. Discussed schedule of offloading to follow at SNF. Could consider possible epifix application if insurance will cover. F/U 2 weeks.
--- NOTE | 2018-04-30 17:15 | PN.PCM_ITS ---
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 mellitus master chef insulin use: unspecified usp insulin use status Diabetes mellitus complication status: with unspecified complications Qualified Code(s): E11.8 - Type 2 diabetes mellitus with unspecified complications Code(s): E11.9 - Type 2 diabetes mellitus without complications (4) Pressure ulcer of right buttock, stage 3 Status: Chronic Current Visit: Yes Code(s): L89.313 - Pressure ulcer of right buttock, stage 3 Type of Wound Date of Service: 04/30/18 Chief Complaint: Stage III pressure ulceration of the right upper buttock History of Wound: This is an 82-year-old female who is debilitated, and suffers from dementia. She lives with her son and opzkhsbt-cn-idw. Her qpjiibef-pc-dcp is a nurse. Patient presents with a stage II pressure ulceration of the right upper buttock, which is said to have been present for approximately 1 month. Additionally, there is a fullness in the left upper buttock, with overlying skin changes, though no breach in skin integrity. There are also signs of pressure phenomenon on each of the lower buttocks. The patient sleeps on a regular mattress. She has a gel cushion for her wheelchair. She is largely immobile, though walks short distances with the aid of a walker. The patient's appetite is said to be good. The patient has recently completed courses of Keflex and Cefdinir orally. She was seen by Dr. English last week and Santyl was prescribed for treatment. Her daughter in law has been doing this daily without complication. They have been working on offloading but bedtime is difficult. A low air loss mattress was ordered but they have not heard back from insurance at this time. Progress of Wound: Ricardo is seen in follow up today for stage 3 pressure ulcer right buttock. Pt is currently in SNF at [place] to provide better offloading to help heal the pressure ulcer. There has been mild improvement in her wound. Aquacel rope is being used and she is tolerating treatment. No increase in drainage or pain per the patient's daughter in law. She has a low air loss mattress on her bed at [facility]. - Physical Exam Vital Signs Temp Pulse Resp BP 95.7 F L 75 18 145/60 H 04/30/18 12:23 04/30/18 12:23 04/30/18 12:23 04/30/18 12:23 General: Alert, Oriented x3, Cooperative, No apparent distress HEENT: Atraumatic, Normocephalic Oral: Moist Mucosa Abdomen: Obese Skin: Ulcer/ Wound Wound Measurements and Assessment WC - Nurse 1 - General Ulcer Measurement Start: 04/16/18 12:55 Freq: Status: Active Protocol: Activity Type Activity Date Activity User E-Sign Co-Sign Detail Recorded Client Recorded Date Recorded By Document 04/30/18 12:23 [facility] [id number] 04/30/18 12:30 [facility] 04/30/18 12:23 Wound Center Nurse 1 [Ulcer Assessment] #2- RT UPPER BUTTOCK STAGE 3 PRESSURE ULCER -Combined with other wound No -Current Size (cm) - Length 0.3 -Current Size (cm) - Width 0.3 -Current Size (cm) - Depth 1.2 -Total Square Cm 0.09 -Date of Last Picture (Recall this 04/30/18 field) -Photo Taken Yes -Epithelialization None Present -Tunneling No -Undermining/Tunneling No -Circular Undermining No -Exudate Amt Small (1-33%) -Exudate Type Sanguineous -Wound Margin Distinct, Outline Attached -Granulation Amt Large (67-100%) -Granulation Quality Red -Slough/Fibrin No -Necrosis Amt None Present (0 %) -Texture (Catalina-wound Skin Appearance) Scarring -Moisture (Catalina-wound Skin Appearance Assessed ) -Color (Catalina-wound Skin Appearance) Assessed Erythema -Temperature (Catalina-wound Skin No Abnormality Appearance) (Pt Warm) -Tenderness on Palpation (Catalina-wound No Skin Appearance) -Ulcer Cleansing Rinsed/ Irrigated with Saline -Foul Odor after Cleansing No -Anesthetic Used 5% Lidocaine Gel WC - Nurse 2 - General Ulcer CM Notes Start: 04/16/18 12:55 Freq: Status: Active Protocol: Activity Type Activity Date Activity User E-Sign Co-Sign Detail Recorded Client Recorded Date Recorded By Document 04/30/18 13:31 [id number] 04/30/18 13:32 04/30/18 13:31 Wound Center Nurse 2 [Procedure/Treatment] -Time 13:31 -Correct Patient Yes -Correct Side, Site, Position Yes -Correct Procedure Yes -Procedure Performed Yes -Type of Procedure Debridement -Clinical Debridement Subcutaneous -Post Debridement Size (cm) - Length 0.5 -Post Debridement Size (cm) - Width 0.4 -Post Debridement Size (cm) - Depth 0.7 -Total Square Cm 0.20 -Wound/Ulcer Outcome Not Healed -Ulcer Cleansing Rinsed/ Irrigated with Saline -Foul Odor after Cleansing No -Bioengineered Tissue No -Bleeding Controlled with Pressure -Treatment Response Procedure Tolerated Well [See Physician Procedure note for Specifics] Pain Scale: 0-10 Numeric [Pain] -Is Patient Pain Free? Yes Psych/Mental Status: Normal Affect, Appropriate Debridement Note Post-Debridement Measurements/Treatment WC - Nurse 2 - General Ulcer CM Notes Start: 04/16/18 12:55 Freq: Status: Active Protocol: Activity Type Activity Date Activity User E-Sign Co-Sign Detail Recorded Client Recorded Date Recorded By Document 04/16/18 13:42 [id number] 04/16/18 13:50 Document 04/30/18 13:31 [id number] 04/30/18 13:32 04/16/18 04/30/18 13:42 13:31 Wound Center Nurse 2 #2- RT UPPER BUTTOCK STAGE 3 PRESSURE ULCER -Time 13:42 13:31 -Correct Patient Yes Yes -Correct Side, Site, Position Yes Yes -Correct Procedure Yes Yes -Procedure Performed Yes Yes -Type of Procedure Debridement Debridement -Clinical Debridement Subcutaneous Subcutaneous -Post Debridement Size (cm) - Length 0.7 0.5 -Post Debridement Size (cm) - Width 1 0.4 -Post Debridement Size (cm) - Depth 0.7 0.7 -Total Square Cm 0.7 0.20 -Wound/Ulcer Outcome Not Healed Not Healed -Ulcer Cleansing Not Cleansed Rinsed/ Irrigated with Saline -Foul Odor after Cleansing No No -Bioengineered Tissue No -Bleeding Controlled with Pressure Pressure -Treatment Response Procedure Procedure Tolerated Well Tolerated Well Pain Scale: 0-10 Numeric Is Patient Pain Free? Yes Yes Wound debrided: right upper buttock stage III pressure ulcer Laterality: Right Type of Debridement: Excisional debridement Anesthesia Used: 4% Lidocaine Solution Depth: Down to and including healthy tissue, in the subcutaneous layer Percentage of wound debrided: 100 Instrument Used: 5mm curette Tissue Removed: yellow slough, devitalized tissue Severity: Fat Layer Exposed Amount of bleeding with debridement: Mild Bleeding Controlled with: Compression and gauze Patient tolerated procedure well Assessment/Plan Active Problems Debility (Chronic) Dementia (Chronic) Diabetes (Chronic) Pressure ulcer of right buttock, stage 3 (Chronic) Assessment: See above diagnoses Plan: Will continue dressing with Aquacel rope. This will be changed everyday and as needed for soiling. Continue to use OptiFoam or equivalent on both areas on the upper buttocks to minimize pressure and shear forces. MRSA found on wound culture and she has completed antibiotics. Offloading measures encouraged with frequent position changes every 2 hours around the clock. These have been discussed with the patient and with her mxmrwaxq-xo-zsn, who is at the bedside. The avtqeksp-iz-krn is a nurse, and appears to understand the recommendations. Patient is to continue using her gel cushion on her wheelchair. Frequent repositioning has been recommended. Labs reviewed and WNL. Good nutrition has been recommended, with the use of nutritional supplements such as Glucerna. Optimization of the patient's glycemic status has been also recommended. Her son was also present today and was unhappy with her progress. Reiterated importance of increased protein and offloading. Discussed schedule of offloading to follow at SNF. Could consider possible epifix application if insurance will cover. F/U 2 weeks.
[2018-05-14 12:28] VITALS: BP 165/73; PULSE 81; RESP 16; TEMP 36.3
--- NOTE | 2018-05-14 18:06 | PCM.WC.PN ---
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 mellitus lobsterman insulin use: unspecified usp insulin use status Diabetes mellitus complication status: with unspecified complications Qualified Code(s): E11.8 - Type 2 diabetes mellitus with unspecified complications Code(s): E11.9 - Type 2 diabetes mellitus without complications (4) Pressure ulcer of right buttock, stage 3 Status: Chronic Current Visit: Yes Code(s): L89.313 - Pressure ulcer of right buttock, stage 3 Type of Wound Date of Service: 05/14/18 Chief Complaint: Stage III pressure ulceration of the right upper buttock History of Wound: This is an 82-year-old female who is debilitated, and suffers from dementia. She lives with her son and iaqpzcrv-cx-jwr. Her cyjsvcel-oz-fcg is a nurse. Patient presents with a stage II pressure ulceration of the right upper buttock, which is said to have been present for approximately 1 month. Additionally, there is a fullness in the left upper buttock, with overlying skin changes, though no breach in skin integrity. There are also signs of pressure phenomenon on each of the lower buttocks. The patient sleeps on a regular mattress. She has a gel cushion for her wheelchair. She is largely immobile, though walks short distances with the aid of a walker. The patient's appetite is said to be good. The patient has recently completed courses of Keflex and Cefdinir orally. She was seen by Dr. English last week and Santyl was prescribed for treatment. Her daughter in law has been doing this daily without complication. They have been working on offloading but bedtime is difficult. A low air loss mattress was ordered but they have not heard back from insurance at this time. Progress of Wound: Ricardo is seen in follow up today for stage 3 pressure ulcer right buttock. Pt is currently in SNF at [place] to provide better offloading to help heal the pressure ulcer but her family intends to bring her home on 05/22/18. They are obtaining a hospital bed with low air loss mattress to continue offloading and prevent pressure ulcer worsening and development. There has been improvement in her wound. Aquacel rope is being used and she is tolerating treatment. No increase in drainage or pain per the patient's daughter in law. She has a low air loss mattress on her bed at [facility]. - Physical Exam Vital Signs Temp Pulse Resp BP 97.3 F L 81 16 165/73 H 05/14/18 12:28 05/14/18 12:28 05/14/18 12:28 05/14/18 12:28 General: Alert, Oriented x3, Cooperative, No apparent distress HEENT: Atraumatic, Normocephalic Oral: Moist Mucosa Abdomen: Obese Skin: Ulcer/ Wound Wound Measurements and Assessment - Nurse 1 - General Ulcer Measurement Start: 04/16/18 12:55 Freq: Status: Active Protocol: Activity Type Activity Date Activity User E-Sign Co-Sign Detail Recorded Client Recorded Date Recorded By Document 05/14/18 12:28 [facility] [id number] 05/14/18 12:34 [facility] 05/14/18 12:28 Wound Center Nurse 1 [Ulcer Assessment] #2- RT UPPER BUTTOCK STAGE 3 PRESSURE ULCER -Combined with other wound No -Current Size (cm) - Length 0.3 -Current Size (cm) - Width 0.2 -Current Size (cm) - Depth 0.2 -Total Square Cm 0.06 -Photo Taken No -Epithelialization Medium 34-66% -Tunneling No -Undermining/Tunneling No -Circular Undermining No -Exudate Amt Small (1-33%) -Exudate Type Serous -Wound Margin Distinct, Outline Attached -Granulation Amt Large (67-100%) -Granulation Quality [place] -Slough/Fibrin No -Necrosis Amt None Present (0 %) -Texture (Catalina-wound Skin Appearance) Scarring -Moisture (Catalina-wound Skin Appearance Dry/Scaly ) -Color (Catalina-wound Skin Appearance) Erythema -Temperature (Catalina-wound Skin No Abnormality Appearance) (Pt Warm) -Tenderness on Palpation (Catalina-wound No Skin Appearance) -Ulcer Cleansing Rinsed/ Irrigated with Saline -Foul Odor after Cleansing No -Anesthetic Used 5% Lidocaine Gel WC - Nurse 2 - General Ulcer CM Notes Start: 04/16/18 12:55 Freq: Status: Active Protocol: Activity Type Activity Date Activity User E-Sign Co-Sign Detail Recorded Client Recorded Date Recorded By Document 05/14/18 13:21 [id number] 05/14/18 13:21 05/14/18 13:21 Wound Center Nurse 2 [Procedure/Treatment] -Time 13:21 -Correct Patient Yes -Correct Side, Site, Position Yes -Correct Procedure Yes -Procedure Performed Yes -Type of Procedure Debridement -Clinical Debridement Subcutaneous -Post Debridement Size (cm) - Length 0.4 -Post Debridement Size (cm) - Width 0.4 -Post Debridement Size (cm) - Depth 0.3 -Total Square Cm 0.16 -Wound/Ulcer Outcome Not Healed -Ulcer Cleansing Not Cleansed -Foul Odor after Cleansing No -Bioengineered Tissue No -Bleeding Controlled with NA -Offloading No [See Physician Procedure note for Specifics] Pain Scale: 0-10 Numeric [Pain] -Is Patient Pain Free? Yes Psych/Mental Status: Normal Affect, Appropriate Debridement Note Post-Debridement Measurements/Treatment - Nurse 2 - General Ulcer CM Notes Start: 04/16/18 12:55 Freq: Status: Active Protocol: Activity Type Activity Date Activity User E-Sign Co-Sign Detail Recorded Client Recorded Date Recorded By Document 04/16/18 13:42 [id number] 04/16/18 13:50 CS Document 04/30/18 13:31 [id number] 04/30/18 13:32 CS Document 05/14/18 13:21 [id number] 05/14/18 13:21 04/16/18 04/30/18 05/14/18 13:42 13:31 13:21 Wound Center Nurse 2 #2- RT UPPER BUTTOCK STAGE 3 PRESSURE ULCER -Time 13:42 13:31 13:21 -Correct Patient Yes Yes Yes -Correct Side, Site, Position Yes Yes Yes -Correct Procedure Yes Yes Yes -Procedure Performed Yes Yes Yes -Type of Procedure Debridement Debridement Debridement -Clinical Debridement Subcutaneous Subcutaneous Subcutaneous -Post Debridement Size (cm) - Length 0.7 0.5 0.4 -Post Debridement Size (cm) - Width 1 0.4 0.4 -Post Debridement Size (cm) - Depth 0.7 0.7 0.3 -Total Square Cm 0.7 0.20 0.16 -Wound/Ulcer Outcome Not Healed Not Healed Not Healed -Ulcer Cleansing Not Cleansed Rinsed/ Not Cleansed Irrigated with Saline -Foul Odor after Cleansing No No No -Bioengineered Tissue No No -Bleeding Controlled with Pressure Pressure NA -Offloading No -Treatment Response Procedure Procedure Tolerated Well Tolerated Well Pain Scale: 0-10 Numeric Is Patient Pain Free? Yes Yes Yes Wound debrided: right upper buttock stage III Laterality: Right Wound Grade/Stage: stage III Type of Debridement: Excisional debridement Anesthesia Used: 4% Lidocaine Solution, 5% Lidocaine Gel Depth: Down to and including healthy tissue, in the subcutaneous layer Percentage of wound debrided: 100 Instrument Used: 3mm curette Tissue Removed: yellow slough, devitalized tissue Severity: Fat Layer Exposed Amount of bleeding with debridement: Mild Bleeding Controlled with: Compression and gauze Patient tolerated procedure well Assessment/Plan Active Problems Debility (Chronic) Dementia (Chronic) Diabetes (Chronic) Pressure ulcer of right buttock, stage 3 (Chronic) Assessment: See above diagnoses Plan: Will continue dressing with Aquacel rope. This will be changed everyday and as needed for soiling. Continue to use OptiFoam or equivalent on both areas on the upper buttocks to minimize pressure and shear forces. Offloading measures encouraged with frequent position changes every 2 hours around the clock. These have been discussed with the patient and with her vcqjbyuz-sb-lch, who is at the bedside. The vutdfeqi-ng-qcs is a nurse, and appears to understand the recommendations. Patient is to continue using her gel cushion on her wheelchair. Frequent repositioning has been recommended. Labs reviewed and WNL. Good nutrition has been recommended, with the use of nutritional supplements such as Glucerna. Optimization of the patient's glycemic status has been also recommended. Reiterated importance of increased protein and offloading. Discussed schedule of offloading to follow at SNF. F/U 2 weeks.
--- NOTE | 2018-05-14 18:10 | PN.PCM_ITS ---
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 mellitus buttermaker insulin use: unspecified senior living insulin use status Diabetes mellitus complication status: with unspecified complications Qualified Code(s): E11.8 - Type 2 diabetes mellitus with unspecified complications Code(s): E11.9 - Type 2 diabetes mellitus without complications (4) Pressure ulcer of right buttock, stage 3 Status: Chronic Current Visit: Yes Code(s): L89.313 - Pressure ulcer of right buttock, stage 3 Type of Wound Date of Service: 05/14/18 Chief Complaint: Stage III pressure ulceration of the right upper buttock History of Wound: This is an 82-year-old female who is debilitated, and suffers from dementia. She lives with her son and cekbgept-ql-dxw. Her agqkpmnr-yh-hyj is a nurse. Patient presents with a stage II pressure ulceration of the right upper buttock, which is said to have been present for approximately 1 month. Additionally, there is a fullness in the left upper buttock, with overlying skin changes, though no breach in skin integrity. There are also signs of pressure phenomenon on each of the lower buttocks. The patient sleeps on a regular mattress. She has a gel cushion for her wheelchair. She is largely immobile, though walks short distances with the aid of a walker. The patient's appetite is said to be good. The patient has recently completed courses of Keflex and Cefdinir orally. She was seen by Dr. English last week and Santyl was prescribed for treatment. Her daughter in law has been doing this daily without complication. They have been working on offloading but bedtime is difficult. A low air loss mattress was ordered but they have not heard back from insurance at this time. Progress of Wound: Ricardo is seen in follow up today for stage 3 pressure ulcer right buttock. Pt is currently in SNF at [place] to provide better offloading to help heal the pressure ulcer but her family intends to bring her home on 05/22/18. They are obtaining a hospital bed with low air loss mattress to continue offloading and prevent pressure ulcer worsening and development. There has been improvement in her wound. Aquacel rope is being used and she is tolerating treatment. No increase in drainage or pain per the patient's daughter in law. She has a low air loss mattress on her bed at [facility]. - Physical Exam Vital Signs Temp Pulse Resp BP 97.3 F L 81 16 165/73 H 05/14/18 12:28 05/14/18 12:28 05/14/18 12:28 05/14/18 12:28 General: Alert, Oriented x3, Cooperative, No apparent distress HEENT: Atraumatic, Normocephalic Oral: Moist Mucosa Abdomen: Obese Skin: Ulcer/ Wound Wound Measurements and Assessment - Nurse 1 - General Ulcer Measurement Start: 04/16/18 12:55 Freq: Status: Active Protocol: Activity Type Activity Date Activity User E-Sign Co-Sign Detail Recorded Client Recorded Date Recorded By Document 05/14/18 12:28 [facility] [id number] 05/14/18 12:34 [facility] 05/14/18 12:28 Wound Center Nurse 1 [Ulcer Assessment] #2- RT UPPER BUTTOCK STAGE 3 PRESSURE ULCER -Combined with other wound No -Current Size (cm) - Length 0.3 -Current Size (cm) - Width 0.2 -Current Size (cm) - Depth 0.2 -Total Square Cm 0.06 -Photo Taken No -Epithelialization Medium 34-66% -Tunneling No -Undermining/Tunneling No -Circular Undermining No -Exudate Amt Small (1-33%) -Exudate Type Serous -Wound Margin Distinct, Outline Attached -Granulation Amt Large (67-100%) -Granulation Quality [place] -Slough/Fibrin No -Necrosis Amt None Present (0 %) -Texture (Catalina-wound Skin Appearance) Scarring -Moisture (Catalina-wound Skin Appearance Dry/Scaly ) -Color (Catalina-wound Skin Appearance) Erythema -Temperature (Catalina-wound Skin No Abnormality Appearance) (Pt Warm) -Tenderness on Palpation (Catalina-wound No Skin Appearance) -Ulcer Cleansing Rinsed/ Irrigated with Saline -Foul Odor after Cleansing No -Anesthetic Used 5% Lidocaine Gel WC - Nurse 2 - General Ulcer CM Notes Start: 04/16/18 12:55 Freq: Status: Active Protocol: Activity Type Activity Date Activity User E-Sign Co-Sign Detail Recorded Client Recorded Date Recorded By Document 05/14/18 13:21 [id number] 05/14/18 13:21 05/14/18 13:21 Wound Center Nurse 2 [Procedure/Treatment] -Time 13:21 -Correct Patient Yes -Correct Side, Site, Position Yes -Correct Procedure Yes -Procedure Performed Yes -Type of Procedure Debridement -Clinical Debridement Subcutaneous -Post Debridement Size (cm) - Length 0.4 -Post Debridement Size (cm) - Width 0.4 -Post Debridement Size (cm) - Depth 0.3 -Total Square Cm 0.16 -Wound/Ulcer Outcome Not Healed -Ulcer Cleansing Not Cleansed -Foul Odor after Cleansing No -Bioengineered Tissue No -Bleeding Controlled with NA -Offloading No [See Physician Procedure note for Specifics] Pain Scale: 0-10 Numeric [Pain] -Is Patient Pain Free? Yes Psych/Mental Status: Normal Affect, Appropriate Debridement Note Post-Debridement Measurements/Treatment - Nurse 2 - General Ulcer CM Notes Start: 04/16/18 12:55 Freq: Status: Active Protocol: Activity Type Activity Date Activity User E-Sign Co-Sign Detail Recorded Client Recorded Date Recorded By Document 04/16/18 13:42 [id number] 04/16/18 13:50 CS Document 04/30/18 13:31 [id number] 04/30/18 13:32 CS Document 05/14/18 13:21 [id number] 05/14/18 13:21 04/16/18 04/30/18 05/14/18 13:42 13:31 13:21 Wound Center Nurse 2 #2- RT UPPER BUTTOCK STAGE 3 PRESSURE ULCER -Time 13:42 13:31 13:21 -Correct Patient Yes Yes Yes -Correct Side, Site, Position Yes Yes Yes -Correct Procedure Yes Yes Yes -Procedure Performed Yes Yes Yes -Type of Procedure Debridement Debridement Debridement -Clinical Debridement Subcutaneous Subcutaneous Subcutaneous -Post Debridement Size (cm) - Length 0.7 0.5 0.4 -Post Debridement Size (cm) - Width 1 0.4 0.4 -Post Debridement Size (cm) - Depth 0.7 0.7 0.3 -Total Square Cm 0.7 0.20 0.16 -Wound/Ulcer Outcome Not Healed Not Healed Not Healed -Ulcer Cleansing Not Cleansed Rinsed/ Not Cleansed Irrigated with Saline -Foul Odor after Cleansing No No No -Bioengineered Tissue No No -Bleeding Controlled with Pressure Pressure NA -Offloading No -Treatment Response Procedure Procedure Tolerated Well Tolerated Well Pain Scale: 0-10 Numeric Is Patient Pain Free? Yes Yes Yes Wound debrided: right upper buttock stage III Laterality: Right Wound Grade/Stage: stage III Type of Debridement: Excisional debridement Anesthesia Used: 4% Lidocaine Solution, 5% Lidocaine Gel Depth: Down to and including healthy tissue, in the subcutaneous layer Percentage of wound debrided: 100 Instrument Used: 3mm curette Tissue Removed: yellow slough, devitalized tissue Severity: Fat Layer Exposed Amount of bleeding with debridement: Mild Bleeding Controlled with: Compression and gauze Patient tolerated procedure well Assessment/Plan Active Problems Debility (Chronic) Dementia (Chronic) Diabetes (Chronic) Pressure ulcer of right buttock, stage 3 (Chronic) Assessment: See above diagnoses Plan: Will continue dressing with Aquacel rope. This will be changed everyday and as needed for soiling. Continue to use OptiFoam or equivalent on both areas on the upper buttocks to minimize pressure and shear forces. Offloading measures encouraged with frequent position changes every 2 hours around the clock. These have been discussed with the patient and with her ibswjnmu-gi-uxb, who is at the bedside. The xnxbhgjx-lv-yfp is a nurse, and appears to understand the recommendations. Patient is to continue using her gel cushion on her wheelch air. Frequent repositioning has been recommended. Labs reviewed and WNL. Good nutrition has been recommended, with the use of nutritional supplements such as Glucerna. Optimization of the patient's glycemic status has been also recommended. Reiterated importance of increased protein and offloading. Discussed schedule of offloading to follow at SNF. F/U 2 weeks.
== END 2018-05-14 23:59 ==
LOC: WC 13:30
PROVIDERS: Visit Provider Family Medicine
DX: E11.622 Type 2 diabetes mellitus with other skin ulcer (principal); F03.90 Unspecified dementia, unspecified severity, without behavioral disturbance, psychotic disturbance, mood disturbance, and anxiety; L89.313 Pressure ulcer of right buttock, stage 3; Z86.14 Personal history of Methicillin resistant Staphylococcus aureus infection
CPT/HCPCS: 11042; 87070; 87075; 87077; 87186; 87205

== ENCOUNTER 2018-06-04 12:00 | Outpatient (RCR) | payer MEDICARE, SELFPAY ==
[2018-05-15 00:59] VITALS: BP 165/73; PULSE 81; RESP 16; TEMP 36.3
[2018-06-04 12:13] VITALS: BP 163/78; PULSE 72; RESP 18; TEMP 36.2
--- NOTE | 2018-06-04 13:14 | PCM.WC.PN ---
(1) Debility Status: Chronic Current Visit: Yes Code(s): R53.81 - Other malaise (2) Dementia Status: Chronic Current Visit: Yes Qualifiers: Dementia type: unspecified type Dementia behavioral disturbance: without behavioral disturbance Qualified Code(s): F03.90 - Unspecified dementia without behavioral disturbance Code(s): F03.90 - Unspecified dementia without behavioral disturbance (3) Overweight (BMI 25.0-29.9) Status: Chronic Current Visit: Yes Code(s): E66.3 - Overweight (4) Pressure ulcer of right buttock, stage 3 Status: Chronic Current Visit: Yes Code(s): L89.313 - Pressure ulcer of right buttock, stage 3 Type of Wound Date of Service: 06/04/18 Chief Complaint: Stage III pressure ulceration of the right upper buttock History of Wound: This is an 82-year-old female who is debilitated, and suffers from dementia. She lives with her son and fehiadfg-wl-bqa. Her gmkweokz-jp-qpg is a nurse. Patient presents with a stage II pressure ulceration of the right upper buttock, which is said to have been present for approximately 1 month. Additionally, there is a fullness in the left upper buttock, with overlying skin changes, though no breach in skin integrity. There are also signs of pressure phenomenon on each of the lower buttocks. The patient sleeps on a regular mattress. She has a gel cushion for her wheelchair. She is largely immobile, though walks short distances with the aid of a walker. The patient's appetite is said to be good. The patient has recently completed courses of Keflex and Cefdinir orally. She was seen by Dr. English last week and Santyl was prescribed for treatment. Her daughter in law has been doing this daily without complication. They have been working on offloading but bedtime is difficult. A low air loss mattress was ordered but they have not heard back from insurance at this time. Progress of Wound: Ricardo is seen in follow up today for stage 3 pressure ulcer right buttock. Pt is currently home and in a hospital bed with low air loss mattress to continue offloading and prevent pressure ulcer worsening and development. There has been improvement in her wound. Aquacel rope was being used until the last week when she has just been using optifoam. Denies drainage or pain per the patient's daughter in law. - Physical Exam Vital Signs Temp Pulse Resp BP 97.1 F L 72 18 163/78 H 06/04/18 12:13 06/04/18 12:13 06/04/18 12:13 06/04/18 12:13 General: Alert, Cooperative, No apparent distress HEENT: Atraumatic, Normocephalic Abdomen: Soft, Non Tender Skin: Ulcer/ Wound Wound Measurements and Assessment WC - Nurse 1 - General Ulcer Measurement Start: 06/04/18 12:13 Freq: Status: Active Protocol: Activity Type Activity Date Activity User E-Sign Co-Sign Detail Recorded Client Recorded Date Recorded By Document 06/04/18 12:13 RB [id number] 06/04/18 12:16 RB 06/04/18 12:13 Wound Center Nurse 1 [Ulcer Assessment] #2- RT UPPER BUTTOCK STAGE 3 PRESSURE ULCER -Combined with other wound No -Current Size (cm) - Length 0.1 -Current Size (cm) - Width 0.1 -Current Size (cm) - Depth 0.1 -Total Square Cm 0.01 -Photo Taken No -Tunneling No -Undermining/Tunneling No -Circular Undermining No -Exudate Amt None Present (0 %) -Wound Margin Distinct, Outline Attached -Granulation Amt Large (67-100%) -Granulation Quality [place] -Slough/Fibrin No -Structure Exposed N/A -Texture (Catalina-wound Skin Appearance) Assessed -Moisture (Catalina-wound Skin Appearance Assessed ) -Color (Catalina-wound Skin Appearance) Assessed -Temperature (Catalina-wound Skin No Abnormality Appearance) (Pt Warm) -Tenderness on Palpation (Catalina-wound No Skin Appearance) -Ulcer Cleansing Rinsed/ Irrigated with Saline -Foul Odor after Cleansing No -Anesthetic Used 5% Lidocaine Gel WC - Nurse 2 - General Ulcer CM Notes Start: 06/04/18 12:13 Freq: Status: Active Protocol: Activity Type Activity Date Activity User E-Sign Co-Sign Detail Recorded Client Recorded Date Recorded By Document 06/04/18 12:35 CS [id number] 06/04/18 12:35 CS 06/04/18 12:35 Wound Center Nurse 2 [Procedure/Treatment] -Time 12:35 -Correct Patient Yes -Correct Side, Site, Position Yes -Correct Procedure Yes -Procedure Performed Yes -Type of Procedure Debridement -Clinical Debridement Subcutaneous -Post Debridement Size (cm) - Length 0.2 -Post Debridement Size (cm) - Width 0.2 -Post Debridement Size (cm) - Depth 0.2 -Total Square Cm 0.04 -Wound/Ulcer Outcome Not Healed -Ulcer Cleansing Not Cleansed -Foul Odor after Cleansing No -Bioengineered Tissue No -Bleeding Controlled with NA -Offloading No -Treatment Response Procedure Tolerated Well [See Physician Procedure note for Specifics] Pain Scale: 0-10 Numeric [Pain] -Is Patient Pain Free? Yes Psych/Mental Status: Normal Affect, Appropriate Debridement Note Post-Debridement Measurements/Treatment WC - Nurse 2 - General Ulcer CM Notes Start: 06/04/18 12:13 Freq: Status: Active Protocol: Activity Type Activity Date Activity User E-Sign Co-Sign Detail Recorded Client Recorded Date Recorded By Document 06/04/18 12:35 [id number] 06/04/18 12:35 06/04/18 12:35 Wound Center Nurse 2 #2- RT UPPER BUTTOCK STAGE 3 PRESSURE ULCER -Time 12:35 -Correct Patient Yes -Correct Side, Site, Position Yes -Correct Procedure Yes -Procedure Performed Yes -Type of Procedure Debridement -Clinical Debridement Subcutaneous -Post Debridement Size (cm) - Length 0.2 -Post Debridement Size (cm) - Width 0.2 -Post Debridement Size (cm) - Depth 0.2 -Total Square Cm 0.04 -Wound/Ulcer Outcome Not Healed -Ulcer Cleansing Not Cleansed -Foul Odor after Cleansing No -Bioengineered Tissue No -Bleeding Controlled with NA -Offloading No -Treatment Response Procedure Tolerated Well Pain Scale: 0-10 Numeric Is Patient Pain Free? Yes Wound debrided: right upper buttock stage III pressure ulcer Laterality: Right Wound Grade/Stage: Stage III pressure ulcer Type of Debridement: Excisional debridement Anesthesia Used: 4% Lidocaine Solution Depth: Down to and including healthy tissue, in the subcutaneous layer Percentage of wound debrided: 100 Instrument Used: 5mm curette Tissue Removed: yellow slough, devitalized tissue Severity: Fat Layer Exposed Amount of bleeding with debridement: Mild Bleeding Controlled with: Compression and gauze Patient tolerated procedure well Assessment/Plan Active Problems Debility (Chronic) Dementia (Chronic) Overweight (BMI 25.0-29.9) (Chronic) Pressure ulcer of right buttock, stage 3 (Chronic) Assessment: See above diagnoses Plan: Will change to Bhavana dressing. This will be changed everyday and as needed for soiling. Continue to use OptiFoam or equivalent on both areas on the upper buttocks to minimize pressure and shear forces. Offloading measures encouraged with frequent position changes every 2 hours around the clock. These have been discussed with the patient and with her oynzgwji-ci-jqz, who is at the bedside. The arwdiwye-gf-llo is a nurse, and appears to understand the recommendations. Patient is to continue using her gel cushion on her wheelchair. Frequent repositioning has been recommended. Labs reviewed and WNL. Good nutrition has been recommended, with the use of nutritional supplements such as Glucerna. Optimization of the patient's glycemic status has been also recommended. Reiterated importance of increased protein and offloading. F/U 2 weeks.
--- NOTE | 2018-06-04 13:18 | PN.PCM_ITS ---
(1) Debility Status: Chronic Current Visit: Yes Code(s): R53.81 - Other malaise (2) Dementia Status: Chronic Current Visit: Yes Qualifiers: Dementia type: unspecified type Dementia behavioral disturbance: without behavioral disturbance Qualified Code(s): F03.90 - Unspecified dementia without behavioral disturbance Code(s): F03.90 - Unspecified dementia without behavioral disturbance (3) Overweight (BMI 25.0-29.9) Status: Chronic Current Visit: Yes Code(s): E66.3 - Overweight (4) Pressure ulcer of right buttock, stage 3 Status: Chronic Current Visit: Yes Code(s): L89.313 - Pressure ulcer of right buttock, stage 3 Type of Wound Date of Service: 06/04/18 Chief Complaint: Stage III pressure ulceration of the right upper buttock History of Wound: This is an 82-year-old female who is debilitated, and suffers from dementia. She lives with her son and adimbfdh-mv-aye. Her ctgdsvxv-gj-rkk is a nurse. Patient presents with a stage II pressure ulceration of the right upper buttock, which is said to have been present for approximately 1 month. Additionally, there is a fullness in the left upper buttock, with overlying skin changes, though no breach in skin integrity. There are also signs of pressure phenomenon on each of the lower buttocks. The patient sleeps on a regular mattress. She has a gel cushion for her wheelchair. She is largely immobile, though walks short distances with the aid of a walker. The patient's appetite is said to be good. The patient has recently completed courses of Keflex and Cefdinir orally. She was seen by Dr. English last week and Santyl was prescribed for treatment. Her daughter in law has been doing this daily without complication. They have been working on offloading but bedtime is difficult. A low air loss mattress was ordered but they have not heard back from insurance at this time. Progress of Wound: Ricardo is seen in follow up today for stage 3 pressure ulcer right buttock. Pt is currently home and in a hospital bed with low air loss mattress to continue offloading and prevent pressure ulcer worsening and development. There has been improvement in her wound. Aquacel rope was being used until the last week when she has just been using optifoam. Denies drainage or pain per the patient's daughter in law. - Physical Exam Vital Signs Temp Pulse Resp BP 97.1 F L 72 18 163/78 H 06/04/18 12:13 06/04/18 12:13 06/04/18 12:13 06/04/18 12:13 General: Alert, Cooperative, No apparent distress HEENT: Atraumatic, Normocephalic Abdomen: Soft, Non Tender Skin: Ulcer/ Wound Wound Measurements and Assessment WC - Nurse 1 - General Ulcer Measurement Start: 06/04/18 12:13 Freq: Status: Active Protocol: Activity Type Activity Date Activity User E-Sign Co-Sign Detail Recorded Client Recorded Date Recorded By Document 06/04/18 12:13 RB [id number] 06/04/18 12:16 RB 06/04/18 12:13 Wound Center Nurse 1 [Ulcer Assessment] #2- RT UPPER BUTTOCK STAGE 3 PRESSURE ULCER -Combined with other wound No -Current Size (cm) - Length 0.1 -Current Size (cm) - Width 0.1 -Current Size (cm) - Depth 0.1 -Total Square Cm 0.01 -Photo Taken No -Tunneling No -Undermining/Tunneling No -Circular Undermining No -Exudate Amt None Present (0 %) -Wound Margin Distinct, Outline Attached -Granulation Amt Large (67-100%) -Granulation Quality Woodruff -Slough/Fibrin No -Structure Exposed N/A -Texture (Catalina-wound Skin Appearance) Assessed -Moisture (Catalina-wound Skin Appearance Assessed ) -Color (Catalina-wound Skin Appearance) Assessed -Temperature (Catalina-wound Skin No Abnormality Appearance) (Pt Warm) -Tenderness on Palpation (Catalina-wound No Skin Appearance) -Ulcer Cleansing Rinsed/ Irrigated with Saline -Foul Odor after Cleansing No -Anesthetic Used 5% Lidocaine Gel WC - Nurse 2 - General Ulcer CM Notes Start: 06/04/18 12:13 Freq: Status: Active Protocol: Activity Type Activity Date Activity User E-Sign Co-Sign Detail Recorded Client Recorded Date Recorded By Document 06/04/18 12:35 CS [id number] 06/04/18 12:35 CS 06/04/18 12:35 Wound Center Nurse 2 [Procedure/Treatment] -Time 12:35 -Correct Patient Yes -Correct Side, Site, Position Yes -Correct Procedure Yes -Procedure Performed Yes -Type of Procedure Debridement -Clinical Debridement Subcutaneous -Post Debridement Size (cm) - Length 0.2 -Post Debridement Size (cm) - Width 0.2 -Post Debridement Size (cm) - Depth 0.2 -Total Square Cm 0.04 -Wound/Ulcer Outcome Not Healed -Ulcer Cleansing Not Cleansed -Foul Odor after Cleansing No -Bioengineered Tissue No -Bleeding Controlled with NA -Offloading No -Treatment Response Procedure Tolerated Well [See Physician Procedure note for Specifics] Pain Scale: 0-10 Numeric [Pain] -Is Patient Pain Free? Yes Psych/Mental Status: Normal Affect, Appropriate Debridement Note Post-Debridement Measurements/Treatment WC - Nurse 2 - General Ulcer CM Notes Start: 06/04/18 12:13 Freq: Status: Active Protocol: Activity Type Activity Date Activity User E-Sign Co-Sign Detail Recorded Client Recorded Date Recorded By Document 06/04/18 12:35 [id number] 06/04/18 12:35 06/04/18 12:35 Wound Center Nurse 2 #2- RT UPPER BUTTOCK STAGE 3 PRESSURE ULCER -Time 12:35 -Correct Patient Yes -Correct Side, Site, Position Yes -Correct Procedure Yes -Procedure Performed Yes -Type of Procedure Debridement -Clinical Debridement Subcutaneous -Post Debridement Size (cm) - Length 0.2 -Post Debridement Size (cm) - Width 0.2 -Post Debridement Size (cm) - Depth 0.2 -Total Square Cm 0.04 -Wound/Ulcer Outcome Not Healed -Ulcer Cleansing Not Cleansed -Foul Odor after Cleansing No -Bioengineered Tissue No -Bleeding Controlled with NA -Offloading No -Treatment Response Procedure Tolerated Well Pain Scale: 0-10 Numeric Is Patient Pain Free? Yes Wound debrided: right upper buttock stage III pressure ulcer Laterality: Right Wound Grade/Stage: Stage III pressure ulcer Type of Debridement: Excisional debridement Anesthesia Used: 4% Lidocaine Solution Depth: Down to and including healthy tissue, in the subcutaneous layer Percentage of wound debrided: 100 Instrument Used: 5mm curette Tissue Removed: yellow slough, devitalized tissue Severity: Fat Layer Exposed Amount of bleeding with debridement: Mild Bleeding Controlled with: Compression and gauze Patient tolerated procedure well Assessment/Plan Active Problems Debility (Chronic) Dementia (Chronic) Overweight (BMI 25.0-29.9) (Chronic) Pressure ulcer of right buttock, stage 3 (Chronic) Assessment: See above diagnoses Plan: Will change to Bhavana dressing. This will be changed everyday and as needed for soiling. Continue to use OptiFoam or equivalent on both areas on the upper buttocks to minimize pressure and shear forces. Offloading measures encouraged with frequent position changes every 2 hours around the clock. These have been discussed with the patient and with her anygvept-kr-sgq, who is at the bedside. The dlpkviye-iv-yzy is a nurse, and appears to understand the recommendations. Patient is to continue using her gel cushion on her wheelchair. Frequent repositioning has been recommended. Labs reviewed and WNL. Good nutrition has been recommended, with the use of nutritional supplements such as Glucerna. Optimization of the patient's glycemic status has been also recommended. Reiterated importance of increased protein and offloading. F/U 2 weeks.
--- OUTSIDE RECORDS SUMMARY | 2018-09-01 21:46 | XMS RPT_ITS ---
:1935 Author Organization [facility] Support Name Relationship Address Phone ANN STACK Unavailable Unavailable + STACK CANDE Unavailable [address] + [place] [address] SEDA ANN Unavailable [address] + [place] [address] R Unavailable Unavailable Unavailable SEDA CANDE Unavailable [address] + [place] [address] SEDA ANN Unavailable [address] + [place] [id number] R Unavailable Unavailable Unavailable STACK, CANDE Unavailable [address] + [place] [address] STACK ANN Unavailable [address] + [place] [address] R Unavailable Unavailable Unavailable STACK, CANDE Unavailable [address] + [place] [address] STACK ANN Unavailable [address] + [place] [address] R Unavailable Unavailable Unavailable STACK, CANDE Unavailable [address] + [place] [address] STACK, ANN Unavailable [address] + [place] [address] STACK, CANDE Unavailable [address] + [place] [address] SEDA ANN Unavailable [address] + [place] [address] STACK, CANDE Unavailable [address] + [place] [address] SEDA ANN Unavailable [address] + [place] [address] STACK CANDE Unavailable [address] + [place] [address] STACK, ANN Unavailable [address] + [place] [address] STACK, CANDE Unavailable [address] + [facility] [place] [address] STACK, ANN Unavailable [address] + [place] [address] R Unavailable Unavailable Unavailable STACK, CANDE Unavailable [address] + [place] [address] STACK, ANN Unavailable [address] + [place] [address] R Unavailable Unavailable Unavailable STACK, CANDE Unavailable [address] + [place] [address] STACK, ANN Unavailable [address] + [place] [address] R Unavailable Unavailable Unavailable STACK, CANDE Unavailable [address] + [place] [address] STACK, ANN Unavailable [address] + [place] [address] STACK, CANDE Unavailable [address] + [place] [address] STACK, ANN Unavailable [address] + [place] [address] STACK, ANN Unavailable Unavailable + STACK, CANDE Unavailable [address] + [place] [address] STACK, ANN Unavailable [address] + [place] [address] R Unavailable Unavailable Unavailable STACK, CANDE Unavailable [address] + [place] [address] STACK, ANN Unavailable [address] + [place] [address] R Unavailable Unavailable Unavailable STACK, ANN Unavailable Unavailable + Care Team Providers Name Role Phone Kinza Montenegro Attending Unavailable DOCTOR, OUT OF TOWN Primary Care Unavailable Kinza Montenegro Attending Unavailable DOCTOR, OUT OF TOWN Primary Care Unavailable Kinza Montenegro Attending Unavailable DOCTOR, OUT OF TOWN Primary Care Unavailable Juan Magana CARRIER DRIVER-C Attending Unavailable DOCTOR, OUT OF TOWN Primary Care Unavailable Malys, Kinza Consulting Unavailable Malys, Kinza Attending Unavailable DOCTOR, OUT OF TOWN Primary Care Unavailable Malys, Kinza Attending Unavailable DOCTOR, OUT OF TOWN Primary Care Unavailable Malys, Kinza Attending Unavailable DOCTOR, OUT OF TOWN Primary Care Unavailable Juan Magana CARRIER DRIVER-C Attending Unavailable DOCTOR, OUT OF TOWN Primary Care Unavailable Malys, Kinza Consulting Unavailable DOCTOR, OUT OF TOWN Primary Care Unavailable Malys, Kinza Attending Unavailable Chris SOLARES, Dr. Akua Murillo Admitting Unavailable Chris SOLARES, Dr. Akua Murillo Attending Unavailable Chris SOLARES, Dr. Akua Murillo Admitting Unavailable Chris SOLARES, Dr. Akua Murillo Attending Unavailable Chris SOLARES, Dr. Akua Murillo Admitting Unavailable Chris SOLARES, Dr. Akua Murillo Attending Unavailable Gahlawat, Maricel Attending Unavailable Dorobek, Ramiro M Primary Care Unavailable Gahlawat, Maricel Admitting Unavailable Gahlawat, Maricel Attending Unavailable Dorobek, Ramiro M Primary Care Unavailable Dorobek, Ramiro M Primary Care Unavailable Peter Turcios Admitting Unavailable Peter Turcios Attending Unavailable ConradBran goodson Attending Unavailable Dorobek, Ramiro M Primary Care Unavailable Conrad, Bran Mejia Attending Unavailable Dorobek, Ramiro M Primary Care Unavailable Dorobek, Ramiro M Primary Care Unavailable Srini Arevalo Admitting Unavailable Srini Arevalo Attending Unavailable Hillary Mcclendon Attending Unavailable Hillary Mcclendon Admitting Unavailable Hillary Mcclendon Primary Care Unavailable Conrad, Bran Mejia Admitting Unavailable Conrad, Bran Mejia Attending Unavailable Dorobek, Ramiro M Primary Care Unavailable Hillary Mcclendon Attending Unavailable Hillary Mcclendon Primary Care Unavailable PROBLEMS PROBLEMS No Problem Records FoundPROCEDURES PROCEDURES No Procedure Records FoundRESULTS RESULTS UA COMPLETE Collected: 06/23/2018 Status: F Source: [place] 4:16 PM [facility] REPOSITORY TYPE CODE TESTS RESULT OUT OF RANGE REFERENCE UNITS LAB 66834247( Yellow LOINC) Normal UA Color Yellow LAB 20468626( Clear LOINC) UA Clarity Abnormal SltCloudy LAB 05996054( Negative LOINC) UA Glucose 2+ Abnormal LAB 25766575( Negative LOINC) Normal UA Bili Negative LAB 46154210( Negative LOINC) Normal UA Ketones Negative LAB 08272285( 1.003-1.030 LOINC) Normal UA Spec Grav 1.020 LAB 03907589( 4.6-8.0 LOINC) Normal UA pH 5.0 LAB 82140137( Negative LOINC) Normal UA Protein Negative LAB 94341782( mg/dL LOINC) Normal UA Urobilinogen Negative Result Comment: Due to a manufacturing issue, low positive urobilinogen results may be fasely positive. Correlate with urine bilirubin and additional clinical/laboratory findings to assess the risk of hemolytic anemia or liver disease. If clinically indicated, repeat testing with an alternate method is available by contacting the laboratory within 24 hours. LAB 13556140(LOINC) Negative Normal UA Nitrite Negative LAB 87763686(LOINC) Negative Normal UA Blood Negative LAB 93094589(LOINC) Negative UA Abnormal Leuk Est 1+ LAB 11817204(LOINC) 0-5 /HPF UA Abnormal WBC 20-50 LAB 07064030(LOINC) 0-5 /HPF Normal UA Squam 0-5 Epithelial LAB 31775861(LOINC) None /HPF UA Abnormal Bacteria Trace LAB 26389249(LOINC) Trace /LPF UA Abnormal Mucous Trace LAB CD:3188283741(LOINC) <=19 mg/d High L UA Ascorbic Acid 40 Performed By: #### [id number] #### [place] [address] Observed: 05/14/2018 Status: F Source: [place] CULTURE, DEEP WOUND 1:20 PM [facility] REPOSITORY Gram Stain Gram Stain 1+ Red Blood Cells No White Blood Cells No organisms seen Wound Culture #2 There are no CLSI standards for interpretation of this Drug/Organism combination. ORGANISM 1: Staphylococcus aureus Amount Growth 2+ ORGANISM 2: Corynebacterium striatum Amount Growth 2+ Staphylococcus aureus: REACTION Benzylpenicillin NF >=0.5 R Cefoxitin *NF - Clindamycin $$ <=0.25 S Inducable Clindamycin Resistan - Erythromycin $ <=0.25 S Gentamicin $ <=0.5 S Levofloxacin $ 0.25 S Linezolid $$$$ 2 S Moxifloxicin *NF <=0.25 S Oxacillin NF 0.5 S Tigecycline $$$$ <=0.12 S Rifampin $$ <=0.5 S Tetracycline NF <=1 S Trimethoprim/Sulfametho $ <=10 S Vancomycin $ 1 S (NF) indicates non-formulary drug at [facility]. Approval by Infectious Disease Specialist required before non-formulary drugs may be ordered and/or dispensed. * CLSI guidelines does not recommend testing of cephalosporins. This interpretation is deduced from Beta-lactam/penicillin results. Cult, Anaerobic No anaerobic bacteria isolated. Performed By: #### M100.1500 #### [facility] [address] [place], [address] PROGRESS Observed: 04/22/2018 Status: COMPLETED Source: [place] 12:00 AM [facility] REPOSITORY HNO ID: [id number] Author: Akua Perez Service: (none) Author Type: Physician Type: Progress Notes Filed: 04/23/2018 5:27 PM Note Text: [facility] HOME NOTE NAME: KATYA STACK NO.: [id number] DATE OF SERVICE: 04/22/2018 [facility] DATE OF : 1935 Follow up multiple medical chronic issues. She is currently up in her room in a wheelchair. She is alert and responsive though not verbalizing much. She is indicating that she is comfortable and denies having shortness of breath or chest pain. Her son is also present. Oral intake has been fair. Nursing reports no new problems. She has had the chronic right buttock wound which had been followed closely by the Wound Care Service as an outpatient in their clinic. MEDICATIONS: Reviewed. EXAMINATION: Afebrile, vital signs are stable. HEENT: Intact. Lungs: Clear. Heart: Regular. Abdomen: Soft and nontender. Bowel sounds present. Extremities: No edema. IMPRESSION: 1. Diabetes mellitus type 2. - Blood sugars have been within a fair range. 2. Hypertension. - Blood pressures have been within a fair range. 3. Previous L4 burst fracture. - She has no complaints of back pain at this time. 4. Dementia. - Monitor her cognitive status. She is on Aricept therapy. She did have recent laboratories which are within a fair range. ADDENDUM Review of her labs reveals actually that her most recent glucose was quite low and her hemoglobin A1c level is also on the low side. Given her advanced age, her diabetes is under too tight of a control. I will therefore decrease her current metformin dose to once a day and continue to monitor her blood sugars. She also has a history of hypothyroidism and is on thyroid supplement, which we will continue. DICTATED BY: MD KRAIG Chpaman/Conrad JOB# [id number] cc:[facility] Observed: 04/16/2018 Status: F Source: [place] CULTURE, DEEP WOUND 1:45 PM [facility] REPOSITORY Gram Stain Gram Stain 2+ Red Blood Cells No White Blood Cells No organisms seen Wound Culture ORGANISM 1: Staphylococcus aureus Amount Growth 1+ Staphylococcus aureus: REACTION Benzylpenicillin NF >=0.5 R Cefoxitin *NF - Clindamycin $$ <=0.25 S Inducable Clindamycin Resistan - Erythromycin $ <=0.25 S Gentamicin $ <=0.5 S Levofloxacin $ 0.25 S Linezolid $$$$ 2 S Moxifloxicin *NF <=0.25 S Oxacillin NF <=0.25 S Tigecycline $$$$ <=0.12 S Rifampin $$ <=0.5 S Tetracycline NF <=1 S Trimethoprim/Sulfametho $ <=10 S Vancomycin $ <=0.5 S (NF) indicates non-formulary drug at [facility]. Approval by Infectious Disease Specialist required before non-formulary drugs may be ordered and/or dispensed. * CLSI guidelines does not recommend testing of cephalosporins. This interpretation is deduced from Beta-lactam/penicillin results. Cult, Anaerobic No anaerobic bacteria isolated. Performed By: #### M100.1500 #### [facility] [address] [place], [address] MICROALBUMIN, UR RANDOM Collected: 03/14/2018 Status: F Source: [facility] PANEL 8:00 PM [facility] REPOSITORY TYPE CODE TESTS RESULT OUT OF RANGE REFERENCE UNITS LAB CREAURR mg/dL Normal 37.40 Creatinine, Urine Random Result Comment: No established reference range. LAB MIALB 0.0-1.8 mg/dL Microalbumin, Normal Urine Random < 0.5 LAB MALB:CRU 0.0-25.0 MIALB/Creatinine Normal Ratio 13 Performed By: #### MIALBURR #### Unless otherwise noted, all testing performed by [address] [address] CLIA: [id number] Try Out Person: Luis Durbin M.D. EXCEPTION NOTICE Collected: 03/12/2018 Status: F Source: [facility] 8:39 AM [facility] REPOSITORY TYPE CODE TESTS RESULT OUT OF RANGE REFERENCE UNITS LAB EXCEP Normal Exception Notice Result Comment: SPECIMEN FOR URINE CREATININE AND ALBUMIN WAS LABELLED A DIFFERENT PATIENT THAN THE ORDER. RECOLLECTION NECESSARY. CBC W/O DIFF Collected: 03/04/2018 Status: F Source: [facility] 5:40 AM [facility] REPOSITORY TYPE CODE TESTS RESULT OUT OF REFERENCE UNITS RANGE LAB WBC 3.4-10.6 K/mcL WBC High 11.5 LAB RBC 3.7-5.0 M/mcL RBC 3.80 LAB HGB 11.6-15.4 g/dL Hemoglobin 12.2 LAB HCT 34.4-44.8 % Hematocrit 35.7 LAB MCV 82.6-98.9 FL MCV 94.0 LAB MCH 27.9-33.9 pg MCH 32.1 LAB MCHC 33.1-35.1 g/dL MCHC 34.1 LAB RDW 10.0-14.4 % RDW 14.1 LAB PLT 162-402 K/mcL Low Platelet Count 159 LAB MPV 7.0-10.6 FL MPV 8.6 Performed By: #### CBCWOD #### Unless otherwise noted, all testing performed by [address] [address] CLIA: [id number] Try Out Person: Luis Durbin M.D. Observed: 02/26/2018 Status: F Source: [place] CULTURE, DEEP WOUND 3:00 PM [facility] REPOSITORY Gram Stain Gram Stain 2+ White Blood Cells 2+ Red Blood Cells No organisms seen Wound Culture #2 There are no CLSI standards for interpretation of this Drug/Organism combination. Clinical correlation necessary, Possible skin contamination. ORGANISM 1: Staphylococcus epidermidis Amount Growth 1+ ORGANISM 2: Corynebacterium amycolatum Amount Growth 2+ Staphylococcus epidermidis: REACTION Benzylpenicillin NF >=0.5 R Cefoxitin *NF + Clindamycin $$ <=0.25 S Inducable Clindamycin Resistan - Erythromycin $ >=8 R Gentamicin $ <=0.5 S Levofloxacin $ >=8 R Linezolid $$$$ 1 S Oxacillin NF >=4 R Tigecycline $$$$ <=0.12 S Rifampin $$ <=0.5 S Tetracycline NF <=1 S Vancomycin $ 1 S (NF) indicates non-formulary drug at [facility]. Approval by Infectious Disease Specialist required before non-formulary drugs may be ordered and/or dispensed. * CLSI guidelines does not recommend testing of cephalosporins. This interpretation is deduced from Beta-lactam/penicillin results. Cult, Anaerobic No anaerobic bacteria isolated. Performed By: #### M100.1500 #### [facility] [place], [address] CBC WITH DIFF Collected: 02/24/2018 Status: F Source: [facility] 4:21 AM [facility] REPOSITORY TYPE CODE TESTS RESULT OUT OF REFERENCE UNITS RANGE LAB WBC 3.4-10.6 K/mcL WBC High 12.8 LAB RBC 3.7-5.0 M/mcL RBC 3.80 LAB HGB 11.6-15.4 g/dL Hemoglobin 12.1 LAB HCT 34.4-44.8 % Hematocrit 35.5 LAB MCV 82.6-98.9 FL MCV 93.5 LAB MCH 27.9-33.9 pg MCH 31.8 LAB MCHC 33.1-35.1 g/dL MCHC 34.0 LAB RDW 10.0-14.4 % RDW 14.0 LAB PLT 162-402 K/mcL Platelet Count 167 LAB MPV 7.0-10.6 FL MPV 8.6 LAB NEUT# 1.2-6.9 K/mcL High Neutrophil # 7.7 LAB LYMPH# 1.0-3.7 K/mcL Lymphocyte # 3.7 LAB MONO# 0.1-0.6 K/mcL Monocyte High # 1.0 LAB EOS# 0-0.5 K/mcL Eosinophil # 0.3 LAB BASO# 0-0.2 K/mcL Basophil # 0.1 LAB SEGNEU% % Segmented Neut % 60.2 LAB LYMP% % Lymphocyte% 29.0 LAB MO% % Monocyte % 7.9 LAB EO% % Eosinophil % 2.5 LAB BA% % Basophil % 0.4 Performed By: #### CHEM8, HBA1C, CBCDIF #### Unless otherwise noted, all testing performed by [place] [address] CLIA: [id number] Try Out Person: Luis Durbin M.D. BASIC METABOLIC PANEL Collected: 02/24/2018 Status: F Source: [facility] 4:21 AM [facility] REPOSITORY TYPE CODE TESTS RESULT OUT OF REFERENCE UNITS RANGE LAB GLU 70-99 mg/dL Low Alert Glucose 65 Result Comment: Identified as outpatient location, no call required This test result might be falsely depressed or falsely elevated on samples drawn from patients taking Sulfasalazine and Sulfapyridine. Venipuncture should occur prior to taking either of these drugs. LAB BUN 8-25 mg/dL BUN High 27 LAB CREA 0.60-1.20 mg/dL Creatinine 0.74 LAB eGFR ml/min/1.73s q.m eGFR,NonAfrican-Am erican >=60 Result Comment: Non- GFR Calc eGFR is an estimated Glomerular Filtration Rate based on the value of the patient's serum creatinine. In outpatients, eGFR should be used as a helpful tool in screening for CKD. In inpatients or patients with acute renal failure, eGFR represents the GFR at the moment of the draw and should be used with caution. LAB eGFRB ml/min/1.73sq.m eGFR, -Albanian >=60 Result Comment: GFR Calc LAB CALCM 8.4-10.2 mg/dL Calcium 8.7 LAB NA 135-145 mmol/L Sodium 144 LAB K 3.5-5.1 mmol/L Potassium 4.1 LAB CL 98-108 mmol/L Chloride 106 LAB CO2 21-32 mmol/L CO2 31 Performed By: #### CHEM8, HBA1C, CBCDIF #### Unless otherwise noted, all testing performed by [address] [address] CLIA: [id number] Try Out Person: Luis Durbin M.D. HEMOGLOBIN A1C Collected: 02/24/2018 Status: F Source: [facility] 4:21 AM [facility] REPOSITORY TYPE CODE TESTS RESULT OUT OF RANGE REFERENCE UNITS LAB HBA1C 4.1-6.5 % Normal Hemoglobin A1C 6.1 Performed By: #### CHEM8, HBA1C, CBCDIF #### Unless otherwise noted, all testing performed by [facility] [address] [place], [place] [address] CLIA: [id number] Try Out Person: Luis Durbin M.D. 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 The family apparently can no longer take care of her at home. After arriving here, according to the nursing staff, the family took her to the emergency room for evaluation. However, we do not have any records. She was then brought back by the daughter. She is currently sitting up in a wheelchair. She is alert and responsive though quite confused and forgetful. She does not know the correct year, month or present location. She is unable to give me any details regarding her past medical history. She is indicating that she is comfortable and in good health. She denies any pain. Nursing reports no shortness of breath, chest pain, abdominal pain, nausea, vomiting or bleeding. 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 She has had frequent urinary tract infections. Information from previous encounter and outside records reveals that she had no prior significant cardiac history. No abdominal pain, nausea, vomiting or bleeding ulcers. No history of prior strokes or seizures. FAMILY HISTORY: Unclear. Possible heart condition. SOCIAL/FUNCTIONAL HISTORY: She does not smoke or abuse alcohol. She had been living with family. She apparently does require some help and supervision with her ADLs. MEDICATIONS: Benazepril 20 mg daily, calcium tablet with vitamin D daily, donepezil 10 mg at bedtime, Flagyl 500 mg b.i.d., gabapentin 600 mg q.8 hours, Humalog insulin sliding scale coverage, Lantus insulin 15 units subcu at bedtime, levothyroxine 100 mcg daily, loratadine 10 mg daily, lovastatin 40 mg daily, melatonin 5 mg daily, metformin 500 mg b.i.d., multivitamin daily, Senokot b.i.d., and vitamin D 1000 units daily. ALLERGIES: No known drug allergies. PHYSICAL EXAMINATION: Afebrile, vital signs stable. She is in no distress. She appears chronically ill. HEENT: Extraocular muscles intact, sclerae nonicteric. Ears are intact. Lungs are clear. Heart: Regular. Abdomen: Soft, overweight, nontender. Bowel sounds present. Extremities: No significant edema. IMPRESSION: 1. Hypertension - continue to monitor blood pressure closely and make adjustments as needed. 2. Diabetes mellitus type 2 - maintain current diabetic regimen. We will monitor blood sugars and make adjustments as needed. 3. Dementia - continue with current Aricept. Monitor cognitive status closely. 4. Previous L4 burst fracture with spinal canal narrowing secondary to acute fall on November 28, 2017 - she appears to be asymptomatic at this time. She is here for long-term care. We will obtain baseline labs including CBC, BMP and hemoglobin A1c levels. ADDENDUM History and physical The patient does have the chronic stage III right buttock ulcer. She will be receiving daily wound care. She is being followed by the [facility] as an outpatient DICTATED BY: MD KRAIG Chapman/Conrad JOB# [id number] cc:[facility] COMPLETE Collected: 02/18/2018 Status: F Source: [place] 4:57 PM [facility] REPOSITORY TYPE CODE TESTS RESULT OUT OF RANGE REFERENCE UNITS LAB 19242230( Yellow LOINC) Normal UA Color Yellow LAB 01414538( Clear LOINC) Normal UA Clarity Clear LAB 59583166( Negative LOINC) Normal UA Glucose Negative LAB 07614332( Negative LOINC) Normal UA Bili Negative LAB 92856014( Negative LOINC) Normal UA Ketones Negative LAB 78865955( 1.003-1.030 LOINC) Normal UA Spec Grav 1.023 LAB 29338417( 4.6-8.0 LOINC) Normal UA pH 5.0 LAB 00268791( Negative LOINC) Normal UA Protein Negative LAB 91033858( mg/dL LOINC) Normal UA Urobilinogen Negative LAB 29768400( Negative LOINC) Normal UA Nitrite Negative LAB 32267460( Negative LOINC) Normal UA Blood Negative LAB 50662439( Negative LOINC) Normal UA Leuk Est Negative LAB 03509070( 0-3 /HPF LOINC) Normal UA RBC 0-3 LAB 46823082( 0-5 /HPF LOINC) Normal UA WBC 0-5 LAB 52991012( 0-5 /HPF LOINC) Normal UA Squam Epithelial 0-5 LAB 29576717( Trace /LPF LOINC) UA Mucous Abnormal Trace LAB CD:957269 <=19 mg/dL 3971(LOIN High C) UA Ascorbic Acid 40 Performed By: #### [id number] #### LELO Urinalysis Automated Subsection [address] [place] [address] XR CHEST AP PORTABLE Observed: 02/18/2018 Status: F Source: [place] 3:26 PM [facility] REPOSITORY Exam Date/Time: 02/18/2018 15:32 EDT Reason for Exam: altered mental status;Other (please specify) Report STUDY: XR Chest AP Portable; 02/18/2018 3:32 pm INDICATION: Altered mental status COMPARISON: 03/07/2017 ACCESSION NUMBER(S): [id number] ORDERING CLINICIAN: Meryl Pack FINDINGS: AP portable view of the chest is obtained. Limited exam due to portable nature. Magnified cardiac silhouette. No infiltrates, effusions or pneumothorax. Old fracture deformity of the proximal left humerus. IMPRESSION: 1. No evidence of acute cardiopulmonary process. FINAL REPORT Dictated: 02/18/2018 4:50 pm Lawanda Leavitt MD Signed (Electronic Signature): 02/18/2018 4:50 pm Signed by: Lawanda Leavitt MD Technologist: YUVAL, CBC W/ AUTO DIFF Collected: 02/18/2018 Status: F Source: [place] 3:17 PM [facility] REPOSITORY TYPE CODE TESTS RESULT OUT OF RANGE REFERENCE UNITS LAB 42457175(L 3.6-11.0 E3/mcL OINC) Normal WBC 10.8 LAB 41435900(L 3.90-5.40 E6/mcL OINC) Normal RBC 4.10 LAB 49484033(L 12.0-16.0 G/DL OINC) Normal Hgb 13.1 LAB 07884780(L 36.0-48.0 % OINC) Normal Hct 39.4 LAB 10493025(L 11.5-14.5 % OINC) Normal RDW 14.0 LAB 90932290(L 27.0-31.0 pg OINC) High MCH 32.0 LAB 43804469(L 33.0-37.0 G/DL OINC) Normal MCHC 33.3 LAB 22548928(L 78.0-100.0 fL OINC) Normal MCV 96.2 LAB 14902463(L 7.4-11.0 fL OINC) Normal MPV 8.9 LAB 00670766(L 130-400 E3/mcL OINC) Normal Platelet 173 Performed By: #### [id number] #### LELO RemHemo [address] [place] [address] AUTO DIFF Collected: 02/18/2018 Status: F Source: [place] 3:17 PM [facility] REPOSITORY Order Comment: Order Added by Discern Expert. TYPE CODE TESTS RESULT OUT OF RANGE REFERENCE UNITS LAB 12541311(L 37.0-75.0 % OINC) Normal Neutro Auto 62.7 LAB 40660371(L 20.0-55.0 % OINC) Normal Lymph Auto 28.9 LAB 85965145(L 0.0-10.0 % OINC) Normal Fergus Auto 6.4 LAB 83881049(L 0.0-11.0 % OINC) Normal Eos Auto 1.7 LAB 17466669(L 0.0-2.0 % OINC) Normal Basophil Auto 0.3 LAB 37058320(L 1.4-6.5 E3/mcL OINC) High Neutro 6.7 Absolute LAB 78892145(L 1.2-3.4 E3/mcL OINC) Normal Lymph Absolute 3.1 LAB 43596301(L 0.0-0.7 E3/mcL OINC) Normal Fergus Absolute 0.7 LAB 92148950(L 0.0-0.7 E3/mcL OINC) Normal Eos Absolute 0.2 LAB 19325549(L 0.0-0.2 E3/mcL OINC) Normal Basophil 0.0 Absolute Performed By: #### [id number] #### LELO RemHemo [facility] [place] [id number] BMP Collected: 02/18/2018 Status: F Source: [place] 3:17 [facility] REPOSITORY TYPE CODE TESTS RESULT OUT OF RANGE REFERENCE UNITS LAB 59500281(L 70-99 mg/dL OINC) High Glucose Lvl 134 LAB [id number](L 8.4-10.2 mg/dL OINC) Calcium Normal Lvl 9.6 LAB 81317738(L 136-145 mEq/L OINC) Sodium Normal Lvl 142 LAB 94760801(L 3.5-5.1 mEq/L OINC) Normal Potassium Lvl 4.2 LAB 86892379(L 98-107 mEq/L OINC) Chloride Normal 101 LAB [id number](L 24.0-30.0 mEq/L OINC) High CO2 31.4 LAB 03838083(L 7-18 mg/dL OINC) High BUN 27 LAB 3342371(LO 0.6-1.3 mg/dL INC) Normal Creatinine 0.8 LAB 17954965(L 5.4-30.0 ratio OINC) High BUN/Creat Ratio 33.8 Performed By: #### [id number] #### LELO [facility] [id number] EGFR Collected: 02/18/2018 Status: F Source: ANGLICAN 3:17 PM [facility] REPOSITORY Order Comment: Order added by Discern Expert. TYPE CODE TESTS RESULT OUT OF RANGE REFERENCE UNITS LAB [id number](LO mL/min/1.73 INC) m2 Normal eGFR >60 LAB 14288782(LO mL/min/1.73 INC) m2 Normal eGFR AA >60 Performed By: #### [id number] #### LELO [facility] [address] [place] [address] TROPONIN-I Collected: 02/18/2018 Status: F Source: ANGLICAN 3:17 PM [facility] REPOSITORY TYPE CODE TESTS RESULT OUT OF RANGE REFERENCE UNITS LAB [id number](LO .00-.03 ng/mL INC) Normal .01 Troponin-I Performed By: #### [id number] #### [facility] [id number] HEAD OR BRAIN W/O Observed: 02/18/2018 Status: F Source: ANGLICAN CONTRAST 3:15 PM [facility] REPOSITORY Exam Date/Time: 02/18/2018 15:27 EDT Reason for Exam: Altered mental status Report STUDY: CT Head or Brain w/o Contrast; 02/18/2018 3:27 pm INDICATION: Altered mental status. COMPARISON: 03/07/2017 ACCESSION NUMBER(S): [id number] ORDERING CLINICIAN: Meryl Pakc TECHNIQUE: Noncontrast axial CT scan of head was performed. Angled reformats in brain and bone windows were generated. The images were reviewed in bone, brain, blood and soft tissue windows. FINDINGS: The ventricles, cisterns and sulci are prominent, consistent with moderate diffuse volume loss. There are areas of nonspecific white matter hypodensity, which are probably age-related or microvascular in nature. Arauz-white differentiation is intact and there is no evidence of acute cortical infarct. No mass, mass effect or midline shift is seen. There is no evidence of hemorrhage. The visualized paranasal sinuses are clear. IMPRESSION: No evidence of acute cortical infarct or intracranial hemorrhage. Chronic changes of volume loss and small vessel ischemic disease.. No evidence of intracranial hemorrhage or displaced skull fracture. FINAL REPORT Dictated: 02/18/2018 3:35 pm Lawanda Leavitt MD Signed (Electronic Signature): 02/18/2018 3:35 pm Signed by: Faraji MD, Arezou Technologist: SAMMI BLANCO COMPLETE Collected: 02/18/2018 Status: F Source: ANGLICAN 2:37 PM [facility] REPOSITORY TYPE CODE TESTS RESULT OUT OF RANGE REFERENCE UNITS LAB [id number]( Yellow LOINC) Normal UA Color Yellow LAB 08690630( Clear LOINC) UA Clarity Abnormal Cloudy LAB 74789793( Negative LOINC) Normal UA Glucose Negative LAB 11121885( Negative LOINC) Normal UA Bili Negative LAB 10997991( Negative LOINC) Normal UA Ketones Negative LAB 53774776( 1.003-1.030 LOINC) Normal UA Spec Grav 1.026 LAB 60920243( 4.6-8.0 LOINC) Normal UA pH 5.0 LAB 85907900( Negative LOINC) Normal UA Protein Negative LAB 68939866( mg/dL LOINC) Normal UA Urobilinogen Negative LAB 54778884( Negative LOINC) Normal UA Nitrite Negative LAB 34192771( Negative LOINC) Normal UA Blood Negative LAB 00282032( Negative LOINC) UA Leuk Est Abnormal 3+ LAB 58105277( 0-3 /HPF LOINC) Normal UA RBC 0-3 LAB 55512798( 0-5 /HPF LOINC) UA WBC Abnormal 20-50 LAB 46386901( 0-5 /HPF LOINC) UA Squam Abnormal Epithelial >30 LAB 48684691( None /HPF LOINC) UA Bacteria Abnormal 2+ LAB 17915315( Trace /LPF LOINC) UA Mucous Abnormal Moderate LAB CD:276009 <=19 mg/dL 3971(LOIN High C) UA Ascorbic Acid 40 Performed By: #### [id number] #### LELO [place] [address] HEP FUNC PANEL Collected: 02/18/2018 Status: F Source: ANGLICAN 2:37 PM [facility] REPOSITORY TYPE CODE TESTS RESULT OUT OF RANGE REFERENCE UNITS LAB [id number](L 10-40 Int._Unit/L OINC) Normal ALT 12 LAB 03854223(L 10-42 Int._Unit/L OINC) Normal AST 20 LAB 05997351(L 3.2-5.0 G/DL OINC) Normal Albumin Lvl 3.6 LAB 37693138(L 2.0-4.0 G/DL OINC) Normal Globulin 2.9 LAB 54630317(L 1.1-1.9 ratio OINC) Normal A/G Ratio 1.2 LAB 99991926(L 42-121 Int._Unit/L OINC) Low Alk Phos 36 LAB 76852251(L .00-.20 mg/dL OINC) Normal Bili Direct .15 LAB 29153082(L OINC) Normal Bili Indirect 0.2 Result Comment: No established ranges available for the Indirect Biliruben. LAB 20065218(LOINC) 0.2-1.0 mg/dL Normal Bili Total 0.4 LAB 00095948(LOINC) 6.4-8.3 G/DL Normal Total Protein 6.5 Performed By: #### [id number] #### [facility] [place] [address] Observed: 02/18/2018 Status: F Source: ANGLICAN C URINE 2:37 PM [facility] REPOSITORY Final Report: Normal skin jenna isolated Performed By: #### [id number] #### LELO Microbiology Subsection [facility] [place] [address] Observed: 01/15/2018 Status: F Source: NORDHE[place] CULTURE, DEEP WOUND 4:00 PM [facility] REPOSITORY Comments: STG III PRESSURE ULCER/R UPPER BUTTOCKS Gram Stain Gram Stain 1+ Red Blood Cells No White Blood Cells No organisms seen Wound Culture One colony each on one plate; no growth in broth medium. Possible skin contamination, further Identification and sensitivity will be performed only by physician's request. ORGANISM 1: Coag Negative Staph Amount Growth Very Rare ORGANISM 2: Gram positive emeka Amount Growth Very Rare ORGANISM 3: Coag Negative Staph Amount Growth Very Rare ORGANISM 4: Gram positive emeka Amount Growth Very Rare Cult, Anaerobic Studies have confirmed that Anaerobic Gram Positive Cocci are routinely susceptible to: Penicillin/Ampicillin, Ampicillin/Sulbactam, Piperacillin/Tazobactam, Cefoxatin, Ertapenem, Imipenem, Meropenem and Metronidazole and vary in resistance to: Clindamycin and Moxifloxacin. ORGANISM 1: Anaerobic cocci Performed By: #### M100.1500 #### [facility] [address], [address] WOUND CTR HISTORY Observed: 12/25/2017 Status: F Source: SHANAE AND PHYSICAL 6:35 PM [facility] REPOSITORY [facility] W[facility]aling Center [address] [place] [address] Wound Ctr History AND Physical 12/25/177 MR#: [id number] Acct: [id number] Name: RANDY STACK Rep #: [id number] : 1935 82 From: Kinza Montenegro DO PCP: OUT OF TOWN DOCTOR Status: REG RCR Y Location: 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 mellitus fdc insulin use: unspecified fdc insulin use status Diabetes mellitus complication status: with unspecified complications Qualified Code(s): E11.8 - Type 2 diabetes mellitus with unspecified complications Code(s): E11.9 - Type 2 diabetes mellitus without complications (4) Immobility Status: Chronic Current Visit: Yes Code(s): Z74.09 - Other reduced mobility (5) Pressure ulcer of right buttock, stage 2 Status: Chronic Current Visit: Yes Code(s): L89.312 - Pressure ulcer of right buttock, stage 2 History of Present Illness Date of Service: 12/25/17 Chief Complaint: Stage II pressure ulceration of the right upper buttock History of Wound: This is an 82-year-old female who is debilitated, and suffers from dementia. She lives with her son and sqrflyyt-hc-cps. Her okmfpyca-tu-phb is a nurse. Patient presents with a stage II pressure ulceration of the right upper buttock, which is said to have been present for approximately 1 month. Additionally, there is a fullness in the left upper buttock, with overlying skin changes, though no breach in skin integrity. There are also signs of pressure phenomenon on each of the lower buttocks. The patient sleeps on a regular mattress. She has a gel cushion for her wheelchair. She is largely immobile, though walks short distances with the aid of a walker. The patient's appetite is said to be good. The patient has recently completed courses of Keflex and Cefdinir orally. She was seen by Dr. English last week and Santyl was prescribed for treatment. Her daughter in law has been doing this daily without complication. They have been working on offloading but bedtime is difficult. A low air loss mattress was ordered but they have not heard back from insurance at this time. Past Medical History Past Medical History: Chronic Problems Pressure ulcer of right buttock, stage 2 (Chronic) Debility (Chronic) Dementia (Chronic) Immobility (Chronic) Diabetes (Chronic) Hypertension (Chronic) Hyperlipidemia (Chronic) Hypothyroidism (Chronic) Incontinence of urine (Chronic) Lumbar and sacral arthritis (Chronic) Overweight (BMI 25.0-29.9) (Chronic) Surgical History: - - Patient has a history of cholecystectomy in the past. She is a Ab0. Allergies/Adverse Reactions: Allergies No Known Allergies Allergy (Verified 12/15/17 10:02) Home Medications: Ambulatory Orders Medication Instructions Recorded Acetaminophen [Tylenol Extra 1,000 mg PO BID 12/15/17 - Family History Paternal - - Patient's father at a young age from a myocardial infarction. The patient's mother in her 70s from a cerebrovascular accident. Lives: With Family Smoking Status: Never smoker Tobacco Use: Non-smoker Alcohol: None Drugs: None Review of Systems Constitutional: Denies: Chills, Fever, Weight Change Eyes: Denies: Pain, Vision Change HEENT: Reports: Difficulty Hearing. Denies: Difficulty Swallowing, Sinus Congestion Cardiovascular: Denies: Chest Pain, Palpitations Respiratory: Denies: Cough, Shortness of Breath Gastrointestinal: Denies: Diarrhea, Nausea, Vomiting Genitourinary: Denies: Dysuria, Hematuria Musculoskeletal: Reports: Joint Pain Skin: Reports: Wounds Neurological: Reports: Confusion Hematologic/ Lymphatic: Denies: Easy Bruising, Easy Bleeding - Physical Exam Vital Signs Temp Pulse Resp BP 97.6 F L 76 16 147/64 H 12/25/17 15:25 12/25/17 15:25 12/25/17 15:25 12/25/17 15:25 General: Alert, Cooperative, No apparent distress HEENT: Atraumatic, Normocephalic Oral: Moist Mucosa Neck: Supple, No JVD Lungs: Clear to auscultation Cardiovascular: Regular rate, Regular Rhythm Abdomen: Soft, Non Tender, Obese Extremities: Edema Skin: Ulcer/ Wound Wound Measurements and Assessment WC - Nurse 1 - General Ulcer Measurement Start: 12/15/17 09:39 Freq: Status: Active Protocol: Activity Type Activity Date Activity User E-Sign Co-Sign Detail Recorded Client Recorded Date Recorded By Document 12/25/17 15:25 [id number] 12/25/17 15:33 CS Wound Center Nurse 1 [Ulcer Assessment] #2- RT UPPER BUTTOCK -Combined with other wound No -Current Size (cm) - Length 0.8 WC - Nurse 2 - General Ulcer CM Notes Start: 12/15/17 09:39 Freq: Status: Active Protocol: Activity Type Activity Date Activity User E-Sign Co-Sign Detail Recorded Client Recorded Date Recorded By Document 12/25/17 16:14 TM [id number] 12/25/17 16:23 TM Wound Center Nurse 2 [Procedure/Treatment] Psych/Mental Status: Normal Affect, Appropriate Debridement Note Post-Debridement Measurements/Treatment WC - Nurse 2 - General Ulcer CM Notes Start: 12/15/17 09:39 Freq: Status: Active Protocol: Activity Type Activity Date Activity User E-Sign Co-Sign Detail Wound Center Nurse 2 #2- RT UPPER BUTTOCK Wound debrided: right upper buttock Laterality: Right Wound Grade/Stage: Stage II Type of Debridement: Excisional debridement Anesthesia Used: 4% Lidocaine Solution Depth: Down to and including healthy tissue, in the subcutaneous layer Percentage of wound debrided: 100 Instrument Used: 5mm curette Tissue Removed: yellow slough, devitalized tissue Severity: Fat Layer Exposed Amount of bleeding with debridement: Mild Bleeding Controlled with: Compression and gauze Patient tolerated procedure well Assessment/Plan Active Problems Pressure ulcer of right buttock, stage 2 (Chronic) Debility (Chronic) Dementia (Chronic) Immobility (Chronic) Diabetes (Chronic) Assessment: This is an 82-year-old female who presents with evidence of pressure phenomenon in the buttocks. There is a stage II pressure ulceration on the right upper buttock. There is evidence of fullness in the left upper buttock, though no breach of skin integrity. There are also some early skin changes in the lower buttocks, also suggesting pressure phenomenon. Plan: Offloading measures encouraged. These have been discussed with the patient and with her jeksosaw-ty-krx, who is at the bedside. The uoryoeit-pb-frt is a nurse, and appears to understand the recommendations. Awaiting response regarding a low air loss overlay to the patient's mattress. Patient is to continue using her gel cushion on her wheelchair. Frequent repositioning has been recommended. We are to use collagenase Santyl topically on the open ulceration on the right upper buttock. This will be applied daily. We are to use OptiFoam or equivalent on both areas on the upper buttocks to minimize pressure and shear forces. Labs reviewed and WNL. Good nutrition has been recommended, with the use of nutritional supplements such as Glucerna. Optimization of the patient's glycemic status has been also recommended. F/U in 1 week. 12/25/17 3855 <Electronically signed by Kinza Montenegro DO> Date Kinza Montenegro DO CC: Signed CBC-COMPLETE BLOOD CNT Collected: 12/15/2017 Status: F Source: NORDHE[place] NO DIFF 11:20 AM [facility] REPOSITORY TYPE CODE TESTS RESULT OUT OF RANGE REFERENCE UNITS LAB L100.1000 4.4-11.0 K/mm3 High WBC 12.2 LAB L100.1200 4.2-5.4 M/mm3 Low RBC 4.18 LAB L100.1300 12.0-15.0 g/dl Normal HGB 13.3 LAB L100.1400 37-47 % Normal HCT 40.4 LAB L100.1500 81-99 fL Normal MCV 96.7 LAB L100.1600 27.0-32.0 pg Normal MCH 31.8 LAB L100.1700 32-36 g/gl Normal MCHC 32.9 LAB L100.1810 11.6-14.6 % Normal RDW CV 13.7 LAB L100.1820 35.1-43.9 fl High RDW SD 47.1 LAB L100.1900 150-450 K/mm3 Normal PLT 195 LAB L100.2000 6.2-12.0 fl Normal MPV 11.0 Performed By: #### L100.0500 #### [facility] [address] [place], [address] HEMOGLOBIN A1C Collected: 12/15/2017 Status: F Source: NORDHEIM 11:20 AM [facility] REPOSITORY TYPE CODE TESTS RESULT OUT OF RANGE REFERENCE UNITS LAB L501.9985 4.2-6.3 % High HGB A1C 6.5 Performed By: #### L501.9985 #### [facility] [address] [place], [address] COMPREHENSIVE METABOLIC Collected: 12/15/2017 Status: F Source: [facility] 11:20 AM [facility] REPOSITORY TYPE CODE TESTS RESULT OUT OF RANGE REFERENCE UNITS LAB L501.0100 74-106 mg/dL High GLU 133 Result Comment: Fasting Glucose result greater than or equal to 126 mg/dL suggests DIABETES MELLITUS per A.D.A. criteria. Please note revised GLUCOSE reference range effective 2017. LAB L501.1000 7-18 mg/dL High BUN 21 LAB L501.1100 0.55-1.02 mg/dL Normal CREAT,SERUM 0.93 Result Comment: The validity of the calculated GFR AND GFRAA in patients over 70 years has not been determined. Clinical correlation is essential. LAB L501.1110 >60 mL/min Normal EST GFR 61 Result Comment: Non- GFR Calc LAB L501.1115 >60 mL/min Normal EST GFR - AA 74 Result Comment: GFR Calc LAB L501.1255 ml/min Normal Estimated CRCL 50.42 LAB L501.1300 10-20 RATIO High BUN/CRE 22.5 LAB L501.1500 6.4-8. g/dL Normal 2 T PROT 7.8 LAB L501.1800 3.2-5. g/dL Normal 0 ALB 3.5 LAB L501.1950 2.2-4. g/dL High 2 GLOB 4.3 LAB L501.2000 0.9-2. RATIO Low 4 A/G 0.8 LAB L501.2200 8.5-10 mg/dL Normal .1 CA 9.4 LAB L501.4100 15-37 U/L Normal AST 23 Result Comment: Slight Hemolysis, Result may be falsely increased. LAB L501.4305 45-117 U/L Normal ALK P 59 LAB L501.4405 13-56 U/L Normal ALT 18 LAB L501.4600 0.20-1.00 mg/dL Normal T BILI 0.20 LAB L501.5300 136-145 mmol/L High NA 146 LAB L501.5600 3.5-5.1 mmol/L Normal K 4.4 Result Comment: Slight Hemolysis, Result may be falsely increased. LAB L501.5900 98-107 mmol/L Normal CL 104 LAB L501.6100 21.0-32.0 mmol/L High CO2 35.0 LAB L501.6200 5-15 Normal 7 GAP Performed By: #### L500.4050, L506.0500 #### [facility] [address] [facility] [place], [address] PREALBUMIN Collected: 12/15/2017 Status: F Source: NORDHEIM 11:20 AM [facility] REPOSITORY TYPE CODE TESTS RESULT OUT OF RANGE REFERENCE UNITS LAB L506.0500 20.0-40.0 mg/dL Normal PREALBUMIN 23.0 Performed By: #### L500.4050, L506.0500 #### [facility] [address] [facility], [address] WOUND CTR HISTORY Observed: 12/15/2017 Status: F Source: SHANAE AND PHYSICAL 11:06 AM [facility] REPOSITORY [facility] Wound Healing Center [address] [place] [address] Wound Ctr History AND Physical 12/15/17 1048 MR#: [id number] Acct: [id number] Name: RANDY STACK Rep #: [id number] : 1935 82 From: Jero English MD PCP: OUT OF TOWN DOCTOR Status: REG RCR Y Location: WC (1) Pressure ulcer of right buttock, stage 2 Status: Chronic Current Visit: Yes Code(s): L89.312 - Pressure ulcer of right buttock, stage 2 (2) Debility Status: Chronic Current Visit: Yes Code(s): R53.81 - Other malaise (3) Dementia Status: Chronic Current Visit: Yes Code(s): F03.90 - Unspecified dementia without behavioral disturbance (4) Immobility Status: Chronic Current Visit: Yes Code(s): Z74.09 - Other reduced mobility (5) Diabetes Status: Chronic Current Visit: Yes Qualifiers: Diabetes mellitus type: type 2 Code(s): E11.9 - Type 2 diabetes mellitus without complications (6) Hypertension Status: Chronic Current Visit: No Code(s): I10 - Essential (primary) hypertension (7) Hyperlipidemia Status: Chronic Current Visit: No Code(s): E78.5 - Hyperlipidemia, unspecified (8) Hypothyroidism Status: Chronic Current Visit: No Code(s): E03.9 - Hypothyroidism, unspecified (9) Incontinence of urine Status: Chronic Current Visit: No Code(s): R32 - Unspecified urinary incontinence (10) Lumbar and sacral arthritis Status: Chronic Current Visit: No Code(s): M48.9 - Spondylopathy, unspecified (11) Overweight (BMI 25.0-29.9) Status: Chronic Current Visit: No Code(s): E66.3 - Overweight History of Present Illness Date of Service: 12/15/17 Chief Complaint: Stage II pressure ulceration of the right upper buttock History of Wound: This is an 82-year-old female who is debilitated, and suffers from dementia. She lives with her son and jwzuilwa-ee-qwj. Her uodxhbub-oa-ocm is a nurse. Patient presents with a stage II pressure ulceration of the right upper buttock, which is said to have been present for approximately 1 month. Additionally, there is a fullness in the left upper buttock, with overlying skin changes, though no breach in skin integrity. There are also signs of pressure phenomenon on each of the lower buttocks. The patient sleeps on a regular mattress. She has a gel cushion for her wheelchair. She is largely immobile, though walks short distances with the aid of a walker. The patient's appetite is said to be good. The patient has recently completed courses of Keflex and Cefdinir orally. Past Medical History Past Medical History: Chronic Problems Pressure ulcer of right buttock, stage 2 (Chronic) Debility (Chronic) Dementia (Chronic) Immobility (Chronic) Diabetes (Chronic) Hypertension (Chronic) Hyperlipidemia (Chronic) Hypothyroidism (Chronic) Incontinence of urine (Chronic) Lumbar and sacral arthritis (Chronic) Overweight (BMI 25.0-29.9) (Chronic) Past Medical History: The patient's history is negative for myocardial infarction, congestive heart failure, cerebrovascular accident, renal disease, pulmonary disease, and cancer. She suffers from dementia, diabetes mellitus, hypertension, hyperlipidemia, hypothyroidism, lumbar fractures, and urinary incontinence. Surgical History: - - Patient has a history of cholecystectomy in the past. She is a Ab0. Allergies/Adverse Reactions: Allergies No Known Allergies Allergy (Verified 12/15/17 10:02) Home Medications: Ambulatory Orders Medication Instructions Recorded Acetaminophen [Tylenol Extra 1,000 mg PO BID 12/15/17 - Family History Paternal - - Patient's father at a young age from a myocardial infarction. The patient's mother in her 70s from a cerebrovascular accident. Social History: Patient denies use of alcohol and tobacco products. She is . She lives with her son and xrsvmora-ev-hdf, who are her caregivers. Lives: With Family Smoking Status: Never smoker Tobacco Use: Non-smoker Alcohol: None Drugs: None Review of Systems Constitutional: Denies: Chills, Fever, Weight Change Eyes: Denies: Pain, Vision Change HEENT: Denies: Difficulty Hearing, Difficulty Swallowing, Sinus Congestion Cardiovascular: Denies: Chest Pain, Palpitations Respiratory: Denies: Cough, Shortness of Breath Gastrointestinal: Denies: Diarrhea, Nausea, Vomiting Genitourinary: Denies: Dysuria, Hematuria Endocrine: Denies: Heat/ Cold Intolerance, Polydipsia, Polyuria Hematologic/ Lymphatic: Denies: Easy Bruising, Easy Bleeding - Physical Exam Vital Signs Temp Pulse Resp BP 95.5 F L 80 16 158/75 H 12/15/17 09:39 12/15/17 09:39 12/15/17 09:39 12/15/17 09:39 General: Alert, Oriented x3, Cooperative, No apparent distress, Well developed, Well nourished, - - The patient is relatively immobile HEENT: Atraumatic, PERRLA, EOMI, Normocephalic Oral: Moist Mucosa Neck: Supple, No JVD, Negative Carotid Bruits, Negative Hepatojugular Reflux, No Nodes, No Nuchal Rigidity, Trachea Midline Lungs: Clear to auscultation, Normal air movement, No rhonchi, No wheeze, No rales Cardiovascular: Regular rate, Regular Rhythm, Normal S1, Normal S2, No murmurs Abdomen: Soft, Non Tender, Non-Distended Extremities: No clubbing, No cyanosis, No edema Skin: - - A superficial stage II pressure ulceration is noted on the right upper buttock. Dimensions are documented elsewhere. There is no sign of infection or cellulitis. There is a moderate amount of bioburden and evidence of some nonviable tissue. There is a fullness on the left upper buttock, though the skin remains intact, with some mild erythematous discoloration that does not suggest cellulitis. There are some early skin changes on the lower buttocks that are suggestive of pressure phenomenon, though no hanane breech of skin integrity. Wound Measurements and Assessment WC - Nurse 1 - General Ulcer Measurement Start: 12/15/17 09:39 Freq: Status: Active Protocol: Activity Type Activity Date Activity User E-Sign Co-Sign Detail Recorded Client Recorded Date Recorded By Document 12/15/17 09:39 [facility] [id number] 12/15/17 09:55 [facility] Wound Center Nurse 1 [Ulcer Assessment] #2- RT UPPER BUTTOCK -Combined with other wound No -Current Size (cm) - Length 2 -Current Size (cm) - Width 2.5 WC - Nurse 2 - General Ulcer CM Notes Start: 12/15/17 09:39 Freq: Status: Active Protocol: Activity Type Activity Date Activity User E-Sign Co-Sign Detail Recorded Client Recorded Date Recorded By Document 12/15/17 10:35 [id number] 12/15/17 10:45 Wound Center Nurse 2 [Procedure/Treatment] #2- RT UPPER BUTTOCK -Time 10:36 -Correct Patient Yes -Correct Side, Site, Position Yes Musculoskeletal: Muscle Wasting Neurological: Cranial nerves II-XII grossly intact, Neuro grossly intact Psych/Mental Status: Normal Affect, Appropriate, Alert and oriented to time, place, person, mood and affect Debridement Note Post-Debridement Measurements/Treatment WC - Nurse 2 - General Ulcer CM Notes Start: 12/15/17 09:39 Freq: Status: Active Protocol: Activity Type Activity Date Activity User E-Sign Co-Sign Detail Recorded Client Recorded Date Recorded By Document 12/15/17 10:35 [id number] 12/15/17 10:45 Wound Center Nurse 2 Laterality: Right - Upper buttock Type of Debridement: Excisional debridement Anesthesia Used: 4% Lidocaine Solution Depth: Down to and including healthy tissue, in the subcutaneous layer Percentage of wound debrided: 100 Instrument Used: 5mm curette Severity: Fat Layer Exposed Amount of bleeding with debridement: Mild Bleeding Controlled with: Compression and gauze Patient tolerated procedure well Assessment/Plan Active Problems Pressure ulcer of right buttock, stage 2 (Chronic) Debility (Chronic) Dementia (Chronic) Immobility (Chronic) Diabetes (Chronic) Assessment: This is an 82-year-old female who presents with evidence of pressure phenomenon in the buttocks. There is a stage II pressure ulceration on the right upper buttock. There is evidence of fullness in the left upper buttock, though no breach of skin integrity. There are also some early skin changes in the lower buttocks, also suggesting pressure phenomenon. Plan: Offloading measures are to be implemented. These have been discussed with the patient and with her pabegkhs-wl-fbb, who is at the bedside. The revbjptt-ww-yxd is a nurse, and appears to understand the recommendations. We are to request a low air loss overlay to the patient's mattress. Patient is to continue using her gel cushion on her wheelchair. Frequent repositioning has been recommended. We are to use collagenase Santyl topically on the open ulceration on the right upper buttock. This will be applied daily. We are to use OptiFoam or equivalent on both areas on the upper buttocks to minimize pressure and shear forces. We are to obtain routine laboratory studies, including a CBC, conference of metabolic profile, hemoglobin A1c, and serum prealbumin. His laboratory results will give information regarding nutritional status, diabetes control, etc. Good nutrition has been recommended, with the use of nutritional supplements such as Glucerna. Optimization of the patient's glycemic status has been also recommended. The patient is not a smoker. Influenza vaccine was not administered today. Patient stands 5 feet 9 inches tall. She weighs 185 pounds. Her BMI is 27.3, which places her in an overweight category. Weight loss has been recommended, and collaboration with her primary care physician in this regard has been advised, though adequate nutritional intake has also been recommended. 12/15/17 1106 <Electronically signed by Jero English MD> Date Jero English MD CC: Signed Observed: 08/14/2017 Status: F Source: BHARATH CLOSTRIDIUM DIFFICILE 6:31 PM [facility] REPOSITORY ORDERED BY: RAMIRO MONTANEZ SOURCE: Stool COLLECTED: 08/14/17 18:31 ANTIBIOTICS AT SHARI.: RECEIVED : 08/14/17 19:27 ORDER WAS CANCELLED 08/15/2017 07:09, Rejected: Quantity not sufficient. Clostridium difficile Amplification FINAL 08/15/17 13:38 Negative for Clostridia Difficile A/B Normal Range: Negative ALLERGIES ALLERGIES DATE TYPE / CODE NAME / CODE REACTION SEVERITY SOURCE 12/15/2017 Drug No Known Unknown Shanae Allergy/416 Allergies/C540328 [facility] 396451(SNOM 388(RXNORM) [facility] ED CT) Repository Drug/287327 No Known L[facility]-Day 003(SNOMED Allergies [facility]) System Repository Drug/877158 No Known Latter-Day 003(SNOMED Medication [facility] CT) Allergies System Repository ENCOUNTERS ENCOUNTERS ADMIT/DISCHARGE ACCOUNT NUMBER ADMITTING ENCOUNTER LOCATION SOURCE CLASS 06/30/2018 [id number] Critical access hospital ding:[facility] Repository rac 06/30/2018/06/30/19 [id number] Hillary Mcclendon [address] ding:[facility] Repository racRoom: Room 3 06/23/2018/06/23/19 [id number] Bran Conrad [address] ding:[facility] Repository 06/23/[id number] Repository 06/18/2018 [id number] [facility] ding: Repository 06/04/2018/06/14/20 [id number] Ambulatory [address] ding: Repository 05/14/2018/05/14/[id number] ding: Repository 04/02/2018/04/14/20 [id number] Ambulatory [address] ding: Repository 03/14/[id number] Ambulatory [facility] Repository 03/12/[id number] Ambulatory [facility] Repository 03/11/2018 [id number] Ambulatory BMSBuilding: Shanae BMS.CF.[facility] Repository 03/11/2018/03/14/20 [id number] Ambulatory Shanae Shanae [address] [place] [address] ding: Repository 03/04/2018 [id number] Ambulatory BMSBuilding: [place] BMS.CF.[facility] Repository 03/04/2018 [id number] Chris SOLARES, Ambulatory [facility] Repository 02/18/2018/02/19/20 [id number] Srini Arevalo [address] ding:[facility] System EDRoom: Repository 02/18/2018 [id number] Ambulatory [address] [place] [address] Repository 02/12/2018/02/13/20 [id number] Ambulatory Shanae Shanae [address] [place] [address] ding: Repository 01/08/2018/01/13/20 [id number] [place] [address] [place] [address] ding: Repository 01/06/2018 [id number] [facility] ing:[place] 01/06/2018/01/07/20 [id number] Ambulatory [address] [facility] ing:AMUAshla ndRoom: Room 1 12/14/2017 [id number] [place], [facility] ding:[facility] Health System Repository 12/12/2017/12/13/[id number] ding: Health System EDRoom: WR Repository 12/12/2017 [id number] Ambulatory [address] [place] [address] Repository 11/26/2017/11/27/19 [id number] Ambulatory [place] [address] uilding:[facility] urgCareRoom: Health System Procedure Repository PAYERS PAYERS ENCOUNTER GUARANTOR PAYER SUBSCRIBER SOURCE 06/30/2018 RANDY Sullivan Primary RANDY ORTEZB: Insurance:1500 HUMANA [facility] CHOICE MEDICAREPolicy [id number] System [facility] Number: Effective [facility], Repository [place] Date:2018-06-30 - [place] [address]Xva: [id number] [address]Ara: Name:CD:[id number] (HP) [address] [place] [address] (HP)Tel: 000) [phone]: (WP) [phone] 06/30/2018 RANDY Sullivan Primary RANDY ORTEZB: Insurance:1500 HUMANA CAMDENDOB: [facility] CHOICE MEDICAREPolicy [id number] System [facility] Number: Effective [facility], Repository [place] Date:2018-06-30 [place] [address]Szk: 6905-95-28Rghb [address]Jjc: Name:CD:[id number] (HP) [address] [place] [address] (HP)Tel: (000) [phone]: (WP) [phone] 06/23/2018 RANDY Sullivan Primary RANDY ORTEZB: Insurance:HUMANAPolic [facility] y Number: Effective [id number] System [facility], Date:2018-06-23 - [facility], Repository [place] [id number] [place] [address]Jgu: Name:CD:[id number] [facility] [address]Hur: [address] [place] [address] (HP) [phone]: [phone]) (HP) [phone] (WP) 06/23/2018 RANDY INEZ: Primary RANDY ORTEZB: [place] Insurance:Humana [facility] [id number] Hospitals [facility] Number: JAYCEE ELLIS, Repository [place] [id number]: [id number] [place] [id number]: Date:Plan Name:[facility] () () 06/18/2018 RANDY JAVIER0 Primary RANDY Jolly [facility], Insurance:HUMANA CAMDENDOB: [facility] [place] [address]Ylz: MEDICARE PPOPolicy [id number] Hospital Number: Repository () [id number] Date:9707-41-46LB [id number] [place] [address]YE: 06/18/2018 Secondary NOT GIVENUNK [place] Insurance:SELF PAY [facility] Number: Effective Repository Date:2018-06-15 06/04/2018 RANDY JAVIER0 Primary RANDY Jolly [facility], Insurance:YOLANDAOLEG STACKB: [facility] [place] [address]Rxx: MEDICARE SENIOR [id number] Hospital ADVANTAPolicy Number: Repository () [id number] Date:5812-69-61HM [address], [place] [address]BH: 06/04/2018 Secondary NOT GIVENUNK [place] Insurance:SELF PAY [facility] Number: Effective Repository Date:2018-05-15 05/14/2018 RANDY STACK810 Primary RANDY Jolly [facility], Insurance:ANTHOLEG NEELIMAB: [place] [id number]: MEDICARE SENIOR [id number] Hospital ADVANTAPolicy Number: Repository () [id number] Date:1891-82-24JP [address]YGH, [place] [address]BJ: 05/14/2018 Secondary NOT GIVENUNK [place] Insurance:SELF PAY [facility] Number: Effective Repository Date:2018-04-15 04/02/2018 RANDY STACK810 Primary RANDY Jolly [facility], Insurance:KAT ORTEZB: [place] [address]Atc: MEDICARE SENIOR [id number] Hospital ADVANTAPolicy Number: Repository () [id number] Date:0644-27-94GE [id number] [place] [address]: 04/02/2018 Secondary NOT GIVENUNK Shanae Insurance:SELF PAY [facility] Number: Effective Repository Date:2018-03-15 03/14/2018 Primary RANDY Sullivan [facility] Insurance:Román ORTEZB: [place] jeannie [address] [place] [address] Number: [id number] [facility] [id number] [facility], Repository Date:Plan [place] [address]Pjc: Name:[facility] [place] [facility] Swapnil [place] () [address]CU: 03/12/2018 Primary RANDY Sullivan [facility] Insurance:Cielo ORTEZB: [facility] Number: [id number] [facility] [id number], Repository Date:Plan Name:Health [place] [address]Ovq: () 03/11/2018 RANDY JAVIER0 Primary RANDY Jolly [facility], Insurance:KAT ORTEZB: [place] [address]Jul: MEDICARE SENIOR [id number] Hospital ADVANTAPolicy Number: Repository () [id number] Date:6334-32-21CR [address]ZRWABI, [place] [address]BW: 03/11/2018 Secondary NOT GIVENUNK [place] Insurance:SELF PAY [facility] Number: Effective Repository Date:2018-03-11 03/11/2018 RANDY Sullivan [id number] Primary RANDY Jolly [facility], Insurance:ANTHEM MILLERDOB: [place] [address]Ftk: MEDICARE SENIOR [id number] Hospital ADVANTAPolicy Number: Repository () [id number] Date:0548-43-06QE [address]HBFPSO, [place] [address]IM: 03/11/2018 Secondary NOT GIVENUNK [place] Insurance:SELF PAY [facility] Number: Effective Repository Date:2018-02-13 03/04/2018 RANDY STACK810 Primary RANDY Sullivan [facility] CONROEDOB: [place] [address]Xer: MEDICARE SENIOR [id number] Hospital ADVANTAPolicy Number: Repository () [id number] Date:0534-95-04JP [address]BY[place], [place] [address]VH: 03/04/2018 Secondary NOT GIVENUNK [place] Insurance:SELF PAY [facility] Number: Effective Repository Date:2018-03-04 03/04/2018 Primary RANDY Sullivan [facility] Insurance:[employer] CAMDENDOB: [address] Number: [id number] [facility] [id number] [facility], Repository Date:Plan [place] [address]Lpd: Name:[facility] [place] [facility] Read () [address]TA: 02/18/2018 RANDY Sullivan Primary RANDY Sullivan Jeff ORTEZB: Insurance:ANTHEMPolic MILLERDOB: [facility] y Number: Effective [id number] System [facility], Date:2018-02-18 - [facility], Repository [place] [phone]: [id number] [place] [id number]: Name:CD:[id number] [address] () [address]MVJVTJD, [place] ()Tel: [phone]: () [phone] 02/18/2018 RANDY STACKDOB: Primary RANDY NEELIMAB: [place] Insurance:[facility] [id number] [facility] JAYCEE ELLIS, Number: [facility], Repository [place] [id number]: [id number] [place] [id number]: Date:Plan Name:Health () () 02/12/2018 RANDY THURMAN Primary RANDY Jolly [facility], Insurance:KAT ORTEZB: [place] [address]Mnj: MEDICARE SENIOR [id number] Hospital ADVANTAPolicy Number: Repository () [id number] Date:0541-47-56MD [address], [place] [address]DM: 02/12/2018 Secondary NOT GIVENUNK Shanae Insurance:SELF PAY [facility] Number: Effective Repository Date:2018-01-13 01/08/2018 RANDY JAVIER0 Primary RANDY Jolly [facility], Insurance:ANTHOLEG ORTEZB: [facility] [place] [address]Qjr: MEDICARE SENIOR [id number] Hospital ADVANTAPolicy Number: Repository () [id number] Date:7536-89-19LU [address]KKPZXAO, [place] [address]WK: 01/08/2018 Secondary NOT GIVENUNK [place] Insurance:SELF PAY [facility] Number: Effective Repository Date:2017-12-15 01/06/2018 RANDY Sullivan Primary RANDY Sullivan Jeff ORTEZB: Insurance:KAT ORTEZB: [facility] [id number] System [facility], MEDICAREPolicy JAMES [place], Repository [place] [id number]: Number: Effective [place] [id number]: Date:2018-01-06 - () 1499-32-13Nnbk (HP)Tel: (000) Name:CD:[id number] 000-0000 (WP) [address] [place] [address]QY: 01/06/2018 RANDY Sullivan Primary RANDY ORTEZB: Insurance:ANTHEM MILLERDOB: [facility] MEDIBLUE [id number] System [facility], MEDICAREPolicy [facility], Repository [place] [phone]: Number: Effective [place] [id number]: Date:2018-01-06 - (HP) 2092-15-72Ktwb (HP)Tel: (000) Name:CD:[id number] 000-0000 (WP) [address] [place] [address]BH: 12/14/2017 RANDY Sullivan Primary RANDY ORTEZB: Insurance:ANTHEMPolic MILLERDOB: [facility] y Number: Effective [id number] System [facility], Date:2017-12-07 - [facility], Repository [place] [id number]: [id number] [place] [id number]: Name:CD:[id number] BOX (HP) [address] [place] [address] [place] (HP)Tel: (000) [phone]: (WP) [phone] 12/12/2017 RANDY Sullivan Primary RANDY ORTEZB: Insurance:ANTHEMPolic MILLERDOB: [facility] y Number: Effective [id number] System [facility], Date:2017-12-12 - [facility], Repository [place] [phone]: 2815-10-36Afhp [place] [id number]: Name:CD:[id number] BOX (HP) 824[address]EWHYFBD [place] (HP)Tel: (000) [phone]: (WP) [phone] 12/12/2017 RANDY ORTEZB: Primary RANDY ORTEZB: [place] [facility] [id number] [facility] JAYCEE ELLIS Number: [facility], Repository [place] [id number]: [id number] [place] [id number]: Date:Plan Name:Health () () 11/26/2017 RANDY Laurie Primary RANDY Sullivan Jeff ORTEZB: Insurance:[address] [place], [place] [address]B: [facility] ANTHEMPolicy Number: [id number] System [facility], Effective [facility], Repository [place] [id number]: Date:2017-11-26 - [place] [id number]: 6488-40-55Qodd () Name:CD:[id number] O (HP)Tel: [phone] ZMR [address]15288HBUPRNO, [place] 000-0000 (WP) [address]NU:
== END 2018-06-14 23:59 ==
LOC: WC 12:00
PROVIDERS: Visit Provider Family Medicine
DX: E11.622 Type 2 diabetes mellitus with other skin ulcer (principal); L89.313 Pressure ulcer of right buttock, stage 3; F03.90 Unspecified dementia, unspecified severity, without behavioral disturbance, psychotic disturbance, mood disturbance, and anxiety
CPT/HCPCS: 11042

== ENCOUNTER 2018-06-18 12:38 | Outpatient (RCR) | payer MEDICARE, SELFPAY ==
[2018-06-15 00:46] VITALS: BP 163/78; PULSE 72; RESP 18; TEMP 36.2
[2018-06-18 12:47] VITALS: BP 133/71; PULSE 67; RESP 18; TEMP 36.8
--- NOTE | 2018-06-18 13:36 | WC ---
healed photo taken
--- NOTE | 2018-06-18 18:15 | PCM.WC.PN ---
(1) Debility Status: Chronic Current Visit: Yes Code(s): R53.81 - Other malaise (2) Dementia Status: Chronic Current Visit: Yes Qualifiers: Dementia type: unspecified type Code(s): F03.90 - Unspecified dementia without behavioral disturbance (3) Pressure ulcer of right buttock, stage 3 Status: Chronic Current Visit: Yes Code(s): L89.313 - Pressure ulcer of right buttock, stage 3 Type of Wound Date of Service: 06/18/18 Chief Complaint: Stage III pressure ulceration of the right upper buttock History of Wound: This is an 82-year-old female who is debilitated, and suffers from dementia. She lives with her son and boundwfu-ks-gwc. Her znksafky-ct-sry is a nurse. Patient presents with a stage II pressure ulceration of the right upper buttock, which is said to have been present for approximately 1 month. Additionally, there is a fullness in the left upper buttock, with overlying skin changes, though no breach in skin integrity. There are also signs of pressure phenomenon on each of the lower buttocks. The patient sleeps on a regular mattress. She has a gel cushion for her wheelchair. She is largely immobile, though walks short distances with the aid of a walker. The patient's appetite is said to be good. The patient has recently completed courses of Keflex and Cefdinir orally. She was seen by Dr. English last week and Santyl was prescribed for treatment. Her daughter in law has been doing this daily without complication. They have been working on offloading but bedtime is difficult. A low air loss mattress was ordered but they have not heard back from insurance at this time. Progress of Wound: Ricardo is seen in follow up today for stage 3 pressure ulcer right buttock. Pt is currently home and in a hospital bed with low air loss mattress to continue offloading and prevent pressure ulcer worsening and development. Her wound is healed! - Physical Exam Vital Signs Temp Pulse Resp BP 98.2 F 67 18 133/71 H 06/18/18 12:47 06/18/18 12:47 06/18/18 12:47 06/18/18 12:47 General: Alert, Oriented x3, Cooperative, No apparent distress HEENT: Atraumatic, Normocephalic Oral: Moist Mucosa Abdomen: Obese Wound Measurements and Assessment - Nurse 1 - General Ulcer Measurement Start: 06/18/18 12:47 Freq: Status: Active Protocol: Activity Type Activity Date Activity User E-Sign Co-Sign Detail Recorded Client Recorded Date Recorded By Document 06/18/18 12:47 AN [id number] 06/18/18 12:56 AN 06/18/18 12:47 Wound Center Nurse 1 [Ulcer Assessment] #2- RT UPPER BUTTOCK STAGE 3 PRESSURE ULCER -Combined with other wound No -Current Size (cm) - Length 0.1 -Current Size (cm) - Width 0.1 -Current Size (cm) - Depth 0.1 -Total Square Cm 0.01 -Tunneling No -Undermining/Tunneling No -Circular Undermining No -Granulation Amt None Present (0 %) -Structure Exposed N/A -Temperature (Catalina-wound Skin No Abnormality Appearance) (Pt Warm) - Nurse 2 - General Ulcer CM Notes Start: 06/18/18 12:47 Freq: Status: Active Protocol: Activity Type Activity Date Activity User E-Sign Co-Sign Detail Recorded Client Recorded Date Recorded By Document 06/18/18 13:21 [id number] 06/18/18 13:22 06/18/18 13:21 Wound Center Nurse 2 [Procedure/Treatment] -Time 13:21 -Post Debridement Size (cm) - Length 0.1 -Post Debridement Size (cm) - Width 0.1 -Post Debridement Size (cm) - Depth 0.1 -Total Square Cm 0.01 -Wound/Ulcer Outcome Healed- Epithelialized [See Physician Procedure note for Specifics] Pain Scale: 0-10 Numeric [Pain] -Is Patient Pain Free? Yes Psych/Mental Status: Normal Affect, Appropriate Debridement Note Post-Debridement Measurements/Treatment - Nurse 2 - General Ulcer CM Notes Start: 06/18/18 12:47 Freq: Status: Active Protocol: Activity Type Activity Date Activity User E-Sign Co-Sign Detail Recorded Client Recorded Date Recorded By Document 06/18/18 13:21 [id number] 06/18/18 13:22 06/18/18 13:21 Wound Center Nurse 2 #2- RT UPPER BUTTOCK STAGE 3 PRESSURE ULCER -Time 13:21 -Post Debridement Size (cm) - Length 0.1 -Post Debridement Size (cm) - Width 0.1 -Post Debridement Size (cm) - Depth 0.1 -Total Square Cm 0.01 -Wound/Ulcer Outcome Healed- Epithelialized Pain Scale: 0-10 Numeric Is Patient Pain Free? Yes Wound debrided: right upper buttock stage 3 pressure ulcer Laterality: Right Wound Grade/Stage: Stage 3 Type of Debridement: Excisional debridement Anesthesia Used: 4% Lidocaine Solution Depth: Down to and including healthy tissue, in the subcutaneous layer Percentage of wound debrided: 100 Instrument Used: 5mm curette Tissue Removed: yellow slough, devitalized tissue Severity: Fat Layer Exposed Amount of bleeding with debridement: Mild Bleeding Controlled with: Compression and gauze Patient tolerated procedure well Assessment/Plan Active Problems Debility (Chronic) Dementia (Chronic) Pressure ulcer of right buttock, stage 3 (Chronic) Assessment: Stage 3 pressure ulcer right buttock Plan: Her wound is healed! Continue to use OptiFoam or equivalent on both areas on the upper buttocks to minimize pressure and shear forces. Offloading measures encouraged with frequent position changes every 2 hours around the clock. These have been discussed with the patient and with her neciknla-uf-xfr, who is at the bedside. The ovywhasx-rd-jik is a nurse, and appears to understand the recommendations. Patient is to continue using her gel cushion on her wheelchair. Frequent repositioning has been recommended. Labs reviewed and WNL. Good nutrition has been recommended, with the use of nutritional supplements such as Glucerna. Optimization of the patient's glycemic status has been also recommended. Reiterated importance of increased protein and offloading to prevent development of new ulcers. She will be discharged and follow up as needed.
--- NOTE | 2018-06-18 18:18 | PN.PCM_ITS ---
(1) Debility Status: Chronic Current Visit: Yes Code(s): R53.81 - Other malaise (2) Dementia Status: Chronic Current Visit: Yes Qualifiers: Dementia type: unspecified type Code(s): F03.90 - Unspecified dementia without behavioral disturbance (3) Pressure ulcer of right buttock, stage 3 Status: Chronic Current Visit: Yes Code(s): L89.313 - Pressure ulcer of right buttock, stage 3 Type of Wound Date of Service: 06/18/18 Chief Complaint: Stage III pressure ulceration of the right upper buttock History of Wound: This is an 82-year-old female who is debilitated, and suffers from dementia. She lives with her son and sknveokj-gg-fuz. Her piifwqgx-tk-ish is a nurse. Patient presents with a stage II pressure ulceration of the right upper buttock, which is said to have been present for approximately 1 month. Additionally, there is a fullness in the left upper buttock, with overlying skin changes, though no breach in skin integrity. There are also signs of pressure phenomenon on each of the lower buttocks. The patient sleeps on a regular mattress. She has a gel cushion for her wheelchair. She is largely immobile, though walks short distances with the aid of a walker. The patient's appetite is said to be good. The patient has recently completed courses of Keflex and Cefdinir orally. She was seen by Dr. English last week and Santyl was prescribed for treatment. Her daughter in law has been doing this daily without complication. They have been working on offloading but bedtime is difficult. A low air loss mattress was ordered but they have not heard back from insurance at this time. Progress of Wound: Ricardo is seen in follow up today for stage 3 pressure ulcer right buttock. Pt is currently home and in a hospital bed with low air loss mattress to continue offloading and prevent pressure ulcer worsening and development. Her wound is healed! - Physical Exam Vital Signs Temp Pulse Resp BP 98.2 F 67 18 133/71 H 06/18/18 12:47 06/18/18 12:47 06/18/18 12:47 06/18/18 12:47 General: Alert, Oriented x3, Cooperative, No apparent distress HEENT: Atraumatic, Normocephalic Oral: Moist Mucosa Abdomen: Obese Wound Measurements and Assessment - Nurse 1 - General Ulcer Measurement Start: 06/18/18 12:47 Freq: Status: Active Protocol: Activity Type Activity Date Activity User E-Sign Co-Sign Detail Recorded Client Recorded Date Recorded By Document 06/18/18 12:47 AN [id number] 06/18/18 12:56 AN 06/18/18 12:47 Wound Center Nurse 1 [Ulcer Assessment] #2- RT UPPER BUTTOCK STAGE 3 PRESSURE ULCER -Combined with other wound No -Current Size (cm) - Length 0.1 -Current Size (cm) - Width 0.1 -Current Size (cm) - Depth 0.1 -Total Square Cm 0.01 -Tunneling No -Undermining/Tunneling No -Circular Undermining No -Granulation Amt None Present (0 %) -Structure Exposed N/A -Temperature (Catalina-wound Skin No Abnormality Appearance) (Pt Warm) - Nurse 2 - General Ulcer CM Notes Start: 06/18/18 12:47 Freq: Status: Active Protocol: Activity Type Activity Date Activity User E-Sign Co-Sign Detail Recorded Client Recorded Date Recorded By Document 06/18/18 13:21 [id number] 06/18/18 13:22 06/18/18 13:21 Wound Center Nurse 2 [Procedure/Treatment] -Time 13:21 -Post Debridement Size (cm) - Length 0.1 -Post Debridement Size (cm) - Width 0.1 -Post Debridement Size (cm) - Depth 0.1 -Total Square Cm 0.01 -Wound/Ulcer Outcome Healed- Epithelialized [See Physician Procedure note for Specifics] Pain Scale: 0-10 Numeric [Pain] -Is Patient Pain Free? Yes Psych/Mental Status: Normal Affect, Appropriate Debridement Note Post-Debridement Measurements/Treatment - Nurse 2 - General Ulcer CM Notes Start: 06/18/18 12:47 Freq: Status: Active Protocol: Activity Type Activity Date Activity User E-Sign Co-Sign Detail Recorded Client Recorded Date Recorded By Document 06/18/18 13:21 [id number] 06/18/18 13:22 06/18/18 13:21 Wound Center Nurse 2 #2- RT UPPER BUTTOCK STAGE 3 PRESSURE ULCER -Time 13:21 -Post Debridement Size (cm) - Length 0.1 -Post Debridement Size (cm) - Width 0.1 -Post Debridement Size (cm) - Depth 0.1 -Total Square Cm 0.01 -Wound/Ulcer Outcome Healed- Epithelialized Pain Scale: 0-10 Numeric Is Patient Pain Free? Yes Wound debrided: right upper buttock stage 3 pressure ulcer Laterality: Right Wound Grade/Stage: Stage 3 Type of Debridement: Excisional debridement Anesthesia Used: 4% Lidocaine Solution Depth: Down to and including healthy tissue, in the subcutaneous layer Percentage of wound debrided: 100 Instrument Used: 5mm curette Tissue Removed: yellow slough, devitalized tissue Severity: Fat Layer Exposed Amount of bleeding with debridement: Mild Bleeding Controlled with: Compression and gauze Patient tolerated procedure well Assessment/Plan Active Problems Debility (Chronic) Dementia (Chronic) Pressure ulcer of right buttock, stage 3 (Chronic) Assessment: Stage 3 pressure ulcer right buttock Plan: Her wound is healed! Continue to use OptiFoam or equivalent on both areas on the upper buttocks to minimize pressure and shear forces. Offloading measures encouraged with frequent position changes every 2 hours around the clock. These have been discussed with the patient and with her stkutkqk-je-neg, who is at the bedside. The noaeqjce-dl-evs is a nurse, and appears to understand the recommendations. Patient is to continue using her gel cushion on her wheelchair. Frequent repositioning has been recommended. Labs reviewed and WNL. Good nutrition has been recommended, with the use of nutritional supplements such as Glucerna. Optimization of the patient's glycemic status has been also recommended. Reiterated importance of increased protein and offloading to prevent development of new ulcers. She will be discharged and follow up as needed.
== END 2018-07-15 23:59 ==
LOC: WC 12:38
PROVIDERS: Visit Provider Family Medicine
DX: Z09 Encounter for follow-up examination after completed treatment for conditions other than malignant neoplasm (principal); F03.90 Unspecified dementia, unspecified severity, without behavioral disturbance, psychotic disturbance, mood disturbance, and anxiety
CPT/HCPCS: 99212; G0463